=== PATIENT | male | born 1935 | race Caucasian/White ===

== ENCOUNTER 2018-08-31 21:25 | Emergency (ER) | payer MEDICARE, OTHER ==
[2018-08-31 21:35] VITALS: BP 199/93
[2018-08-31] MEDS ORDERED: Ondansetron 4 MG/2 ML SDV IVPUSH ONE ×2 (21:49→22:51)
[2018-08-31] MEDS ORDERED: HYDROmorphone 1 MG/ML Syringe IVPUSH ONE (21:49)
--- NOTE | 2018-08-31 21:56 | EDM.PDOC ---
ED HPI GENERAL MEDICAL PROBLEM - General Chief Complaint: Abdominal Pain Stated Complaint: RIGHT SIDE PAIN VOMMITTING AND FEVER Time Seen by Provider: 08/31/18 21:32 Source of Information: Reports: Patient History Limitations: Reports: No Limitations - History of Present Illness INITIAL COMMENTS - FREE TEXT/NARRATIVE: This is an 82-year-old male. He has a history of colon cancer about 4 years ago when he had surgery and about a foot of colon was removed on the right side. He apparently just recently had a blood test that indicated that he was colon cancer free. However today he started having sharp pain in his right flank into his right lower abdomen now is just in the right flank area that feels suspiciously like he is colon cancer. He's had some nausea and vomiting. He comes to the ER because of the sharp pains for fear his colon cancer has come back. He still has his appendix he believes. He has no history of kidney stones. He has been able to drink fluids. He thinks he might of had a low-grade fever at home though he does not have a fever here in the ER. He denies any distention of his abdomen he denies any other acute symptoms. Right Abdomen Pain Score (Numeric/FACES): 8 - Related Data Allergies Allergy/AdvReac Type Severity Reaction Status Date / Time No Known Allergies Allergy Verified 08/31/18 21:31 Home Meds: Home Meds Carvedilol 3.125 tab PO BID 12/22/14 [History] Losartan/Hydrochlorothiazide [Losartan-HCTZ 50-12.5 MG] 1 tab PO DAILY 12/22/14 [History] metFORMIN [Glucophage] 1,000 mg PO BID 12/22/14 [History] Hydrocodone/Acetaminophen [Hydrocodon-Acetaminophen 5-325] 1 each PO Q4H PRN # 15 tablet 09/01/18 [Rx] Ondansetron [Zofran] 4 mg PO Q6H PRN #12 tab 09/01/18 [Rx] Past Medical History HEENT History: Reports: Cataract, Impaired Vision Cardiovascular History: Reports: High Cholesterol, Hypertension, MD, Stents Other Gastrointestinal History: GI ulcer surgery with mesh Endocrine/Metabolic History: Reports: Diabetes, Type II Oncologic (Cancer) History: Reports: Colon Other Oncologic History: newly diagnosed with colon cancer 12/2014 Dermatologic History: Reports: Melanoma - Past Surgical History HEENT Surgical History: Reports: Cataract Surgery GI Surgical History: Reports: Colonoscopy Other GI Surgeries/Procedures: surgery on ulcer in stomach. removal part of stomach, right hemicolectomy Musculoskeletal Surgical History: Reports: Shoulder Surgery Social & Family History - Tobacco Use Smoking Status *Q: Former Smoker Used Tobacco, but Quit: Yes Month/Year Tobacco Last Used: 1984 - Recreational Drug Use Recreational Drug Use: Yes ED ROS GENERAL - Review of Systems Review Of Systems: See Below Constitutional: Denies: Fever, Chills HEENT: Reports: No Symptoms Respiratory: Reports: No Symptoms Cardiovascular: Reports: No Symptoms Endocrine: Reports: No Symptoms GI/Abdominal: Reports: Abdominal Pain, Nausea, Vomiting. Denies: Black Stool, Bloody Stool, Constipation, Diarrhea, Distension : Reports: No Symptoms Musculoskeletal: Reports: No Symptoms Skin: Reports: No Symptoms Neurological: Reports: No Symptoms Psychiatric: Reports: No Symptoms Hematologic/Lymphatic: Reports: No Symptoms ED EXAM, GI/ABD - Physical Exam Exam: See Below Exam Limited By: No Limitations General Appearance: Alert, WD/WN, No Apparent Distress Eyes: Bilateral: Normal Appearance Ears: Normal External Exam Nose: Normal Inspection Throat/Mouth: Normal Inspection, Normal Lips, Normal Voice, No Airway Compromise Head: Normocephalic Neck: Supple Respiratory/Chest: No Respiratory Distress, Lungs Clear, Normal Breath Sounds Cardiovascular: Regular Rate, Rhythm, No Murmur GI/Abdominal Exam: Soft, No Mass, Guarding, Rigid, Rebound, Tender, Other (He is tender in the right flank area on palpation but there is no guarding, the rest of his abdomen does not appear to have any tenderness.) Back Exam: Normal Inspection, Full Range of Motion Extremities: Normal Inspection, Normal Range of Motion Neurological: Alert, Oriented Psychiatric: Normal Affect, Normal Mood Skin Exam: Warm, Dry Course - Vital Signs Last Recorded V/S: Last Vital Signs Temp 96.6 F 08/31/18 21:32 Pulse 56 L 08/31/18 21:32 Resp 16 08/31/18 21:32 BP 199/93 H 08/31/18 21:32 Pulse Ox 97 08/31/18 21:32 - Orders/Labs/Meds Orders: Active Orders 24 hr Category Date Time Status Abdomen Pelvis w Cont [CT] Stat Exams 08/31/18 21:51 Taken Labs: Laboratory Tests 08/31/18 08/31/18 08/31/18 Range/Units 21:50 21:50 22:05 WBC 11.65 H (4.23-9.07) K/mm3 RBC 4.03 L (4.63-6.08) M/mm3 Hgb 12.1 L D (13.7-17.5) gm/L Hct 36.1 L (40.1-51.0) % MCV 89.6 (79.0-92.2) fl MCH 30.0 (25.7-32.2) pg MCHC 33.5 (32.2-35.5) g/dl RDW Std Deviation 41.9 (35.1-43.9) fL Plt Count 167 (163-337) K/mm3 MPV 10.4 (9.4-12.3) fl Neut % (Auto) 79.7 H (34.0-67.9) % Lymph % (Auto) 8.8 L (21.8-53.1) % [place] % (Auto) 10.2 (5.3-12.2) % Eos % (Auto) 0.9 (0.8-7.0) Baso % (Auto) 0.3 (0.1-1.2) % Neut # (Auto) 9.28 H (1.78-5.38) K/mm3 Lymph # (Auto) 1.03 L (1.32-3.57) K/mm3 [place] # (Auto) 1.19 H (0.30-0.82) K/mm3 Eos # (Auto) 0.10 (0.04-0.54) K/mm3 Baso # (Auto) 0.04 (0.01-0.08) K/mm3 Manual Slide Review Abnormal smear Sodium 138 (136-145) mEq/L Potassium 4.4 (3.5-5.1) mEq/L Chloride 105 (98-107) mEq/L Carbon Dioxide 25 (21-32) mEq/L Anion Gap 12.4 (5-15) BUN 33 H (7-18) mg/dL Creatinine 2.3 H (0.7-1.3) mg/dL Est Cr Clr Drug Dosing 21.17 mL/min Estimated GFR (MDRD) 27 (>60) mL/min BUN/Creatinine Ratio 14.3 (14-18) Glucose 225 H (83-115) mg/dL Lactic Acid 1.3 (0.4-2.0) mmol/L Calcium 9.3 (8.5-10.1) mg/dL Total Bilirubin 0.4 (0.2-1.0) mg/dL AST 21 (15-37) U/L ALT 24 (16-63) U/L Alkaline Phosphatase 66 (46-116) U/L Total Protein 6.9 (6.4-8.2) g/dl Albumin 3.8 (3.4-5.0) g/dl Globulin 3.1 gm/dL Albumin/Globulin Ratio 1.2 (1-2) Lipase 150 (73-393) U/L Meds: Medications Discontinued Medications Generic Name Dose Route Start Last Admin Trade Name Freq PRN Reason Stop Dose Admin Diatrizoate Meglum/Diatrizoate Sod 60 ml 08/31/18 22:59 08/31/18 23:33 Gastrografin 37% PO 08/31/18 23:00 60 ml ONETIME ONE Administration Hydromorphone HCl 0.5 mg 08/31/18 21:49 08/31/18 21:55 Dilaudid IVPUSH 08/31/18 21:50 0.5 mg ONETIME ONE Administration Sodium Chloride 1,000 mls @ 500 mls/hr 08/31/18 22:00 08/31/18 21:56 Normal Saline IV 500 mls/hr ASDIRECTED SELENE Administration Sodium Chloride 1,000 mls @ 500 mls/hr 08/31/18 23:45 Normal Saline IV ASDIRECTED SELENE Iopamidol 100 ml 08/31/18 22:59 08/31/18 23:33 Isovue-370 (76%) IV 08/31/18 23:00 100 ml ONETIME ONE Administration Ketorolac Tromethamine 30 mg 09/01/18 01:22 09/01/18 02:17 Toradol IVPUSH 09/01/18 01:23 30 mg ONETIME ONE Administration Ondansetron HCl 4 mg 08/31/18 21:49 08/31/18 21:56 Zofran IVPUSH 08/31/18 21:50 4 mg ONETIME ONE Administration Ondansetron HCl 4 mg 08/31/18 22:51 08/31/18 22:56 Zofran IVPUSH 08/31/18 22:52 4 mg ONETIME ONE Administration - Radiology Interpretation Free Text/Narrative:: DT scan of the abdomen with contrast reveals a 2 mm stone at the right ureteral vesicle junction. Does not appear to be any other acute findings. - Re-Assessments/Exams Free Text/Narrative Re-Assessment/Exam: 09/01/18 01:22 I spoke to the patient and his regarding the CT scan results and that his pain is related to a kidney stone. We hydrated him with a liter of fluids prior to getting the CT scan and were giving him another liter of fluids because his renal function is slightly decreased. Once he gets the fluids and then we will discharge him home with something for pain and nausea and a urine strainer. 09/01/18 02:16 The patient has been hydrated with 2 L and he wants to go home. Departure - Departure Time of Disposition: 02:16 Disposition: Home, Self-Care 01 Condition: Good Clinical Impression: Right ureteral calculus, Renal colic Nausea and vomiting Qualifiers: Vomiting type: unspecified Vomiting Intractability: non-intractable Qualified Code(s): R11.2 - Nausea with vomiting, unspecified - Discharge Information *PRESCRIPTION DRUG MONITORING PROGRAM REVIEWED*: Not Applicable *COPY OF PRESCRIPTION DRUG MONITORING REPORT IN PATIENT NIMCO: Not Applicable Prescriptions: Hydrocodone/Acetaminophen [Hydrocodon-Acetaminophen 5-325] 1 each PO Q4H PRN # 15 tablet PRN Reason: Pain Ondansetron [Zofran] 4 mg PO Q6H PRN #12 tab PRN Reason: Nausea Instructions: Kidney Stones Referrals: Garland Nieves MD [Primary Care Provider] - Forms: ED Department Discharge Additional Instructions: Continued drink lots of fluids, strain your urine for the kidney stone, take the medicine for pain and nausea as needed, if there is marked worsening of your symptoms really did develop a fever greater than 101 and return to the ER, otherwise follow up with your family doctor this week for recheck - My Orders Last 24 Hours: My Active Orders 08/31/18 21:51 Abdomen Pelvis w Cont [CT] Stat - Assessment/Plan Last 24 Hours: My Active Orders 08/31/18 21:51 Abdomen Pelvis w Cont [CT] Stat
[2018-08-31] MEDS ORDERED: Sodium Chloride 0.9% 1,000 ML IV SCH ×2 (22:00→23:45)
[2018-08-31] MEDS ORDERED: Iopamidol 755 Mg/ML 200 ML Bottle IV ONE (22:59)
[2018-08-31] MEDS ORDERED: Diatrizoate Meglumine/Diatrizoate Sodium 37% 120 ML Bottle PO ONE (22:59)
[2018-09-01] MEDS ORDERED: Ketorolac 30 MG/ML SDV IVPUSH ONE (01:22)
--- NOTE | 2018-09-02 06:36 | CT ---
CT abdomen and pelvis Technique: Multiple axial sections were obtained from above the dome of the diaphragm inferiorly through the pubic symphysis. Intravenous and oral contrast was utilized. Comparison: Prior CT abdomen and pelvis exam of 11/30/18. Small portion of the visualized lung bases show nothing acute. Liver shows no discrete abnormality. Spleen appears within normal limits. Adrenal glands show no nodule. Pancreas is within normal limits. Cysts are noted within the right kidney which are stable from previous exam. Right ureter is prominent in size. There is a small 2 mm calcification located within the right UVJ which is felt compatible with mildly obstructing distal right ureteral stone. No left sided ureteral dilatation or ureteral stone is seen. Aorta shows atherosclerotic change without aneurysm. No retroperitoneal adenopathy is seen. Previous right-sided hemicolectomy is noted. No pelvic mass or adenopathy is seen. No free fluid is seen. Bone window settings show scattered degenerative change within the spine. Impression: 1. Mildly prominent right ureter caused by an obstructing 2 mm stone located within the right UVJ. 2. Previous right-sided colectomy. 3. Other incidental findings. Diagnostic code #3 I agree with preliminary report from [facility], finalized on 09/01/18, 2:13 AM Central Time
== END 2018-09-01 02:27 | disposition home or self-care (01) ==
LOC: JD.ED 21:25
DX: N20.1 Calculus of ureter (principal); E78.00 Pure hypercholesterolemia, unspecified; I10 Essential (primary) hypertension; I25.2 Old myocardial infarction; Z95.5 Presence of coronary angioplasty implant and graft; E11.9 Type 2 diabetes mellitus without complications; Z87.891 Personal history of nicotine dependence; Z79.899 Other long term (current) drug therapy; Z79.84 Long term (current) use of oral hypoglycemic drugs
CPT/HCPCS: 36415; 74177; 80053; 83605; 83690; 85025; 96361; 96374; 96375; 96376; 99284; J1170; J1885; J2405; J7040; Q9963; Q9967

== ENCOUNTER 2021-01-23 13:46 | Emergency (ER) | payer MEDICARE, OTHER ==
[2021-01-23] MEDS ORDERED: Sodium Chloride 0.9% 10 ML Syringe FLUSH PRN (14:19)
[2021-01-23] MEDS ORDERED: Sodium Chloride 0.9% 1,000 ML IV ONE (14:23)
--- NOTE | 2021-01-23 14:29 | EDM.PDOC ---
ED HPI GENERAL MEDICAL PROBLEM - General Chief Complaint: Neuro Symptoms/Deficits Stated Complaint: POSS STROKE Time Seen by Provider: 01/23/21 14:11 Source of Information: Reports: Patient, Family History Limitations: Reports: No Limitations - History of Present Illness INITIAL COMMENTS - FREE TEXT/NARRATIVE: The patient presents with double vision and trouble walking. He says this started yesterday about 9:30am. That would be his last time known well. He started having double vision and had trouble walking. He also has some mild slurred speech. His said it got worse this afternoon so she brought him in. He denies any headache, fever, chills, cough, chest pain, shortness of breath, nausea or vomiting. He thought a few days ago he may have had a bladder infection. He had some lower abdominal pain. He has no nausea, vomiting or diarrhea. Onset: Sudden Duration: Day(s): (last time known well was yesterday at 9:30am) Improves with: Reports: None Worsens with: Reports: None Associated Symptoms: Denies: Chest Pain, Cough, Fever/Chills, Headaches, Nausea/Vomiting, Shortness of Breath - Related Data Allergies Allergy/AdvReac Type Severity Reaction Status Date / Time No Known Allergies Allergy Verified 01/23/21 14:52 Home Meds: Home Meds Losartan/Hydrochlorothiazide [Losartan-HCTZ 50-12.5 MG] 1 tab PO DAILY 12/22/14 [History] carvediloL [Carvedilol] 3.125 tab PO BID 12/22/14 [History] metFORMIN [Glucophage] 1,000 mg PO BID 12/22/14 [History] Past Medical History HEENT History: Reports: Cataract, Impaired Vision Cardiovascular History: Reports: High Cholesterol, Hypertension, [place], Stents Other Gastrointestinal History: GI ulcer surgery with mesh Endocrine/Metabolic History: Reports: Diabetes, Type II Oncologic (Cancer) History: Reports: Colon Other Oncologic History: newly diagnosed with colon cancer 12/2014 Dermatologic History: Reports: Melanoma - Past Surgical History HEENT Surgical History: Reports: Cataract Surgery GI Surgical History: Reports: Colonoscopy Other GI Surgeries/Procedures: surgery on ulcer in stomach. removal part of stomach, right hemicolectomy Musculoskeletal Surgical History: Reports: Shoulder Surgery ED ROS GENERAL - Review of Systems Review Of Systems: See Below Constitutional: Reports: No Symptoms HEENT: Reports: Other (Double vision) Respiratory: Reports: No Symptoms Cardiovascular: Reports: No Symptoms Endocrine: Reports: No Symptoms GI/Abdominal: Reports: Abdominal Pain (mild to the lower abdomen) : Reports: No Symptoms Musculoskeletal: Reports: No Symptoms ED EXAM, NEURO - Physical Exam Exam: See Below Exam Limited By: No Limitations General Appearance: Alert, No Apparent Distress Ears: Normal External Exam Nose: Normal Inspection Head Exam: Atraumatic, Normocephalic Neck: Normal Inspection Respiratory/Chest: No Respiratory Distress, Lungs Clear, Normal Breath Sounds Cardiovascular: Regular Rate, Rhythm, No Edema, No Murmur GI/Abdominal: Soft, No Organomegaly, No Mass, Tender (Mild lower abdominal tenderness) Neurological: Alert, Other (He has double vision. When he covers his either eye he can see one of me but with both he is seeing 2. He cannot look to the right with his right eye. He has mild left arm and leg weakness.) Back Exam: Normal Inspection Extremities: Normal Inspection #1 Interpretation EKG Date: 01/23/21 Time: 14:44 Rhythm: NSR Rate (Beats/Min): 63 [place]: Normal P-Wave: Present QRS: Normal ST-T: Normal QT: Normal Course - Vital Signs Last Recorded V/S: Last Vital Signs Temp 99.8 F 01/23/21 13:50 Pulse 60 01/23/21 13:50 Resp 22 H 01/23/21 13:50 BP 90/52 L 01/23/21 13:50 Pulse Ox 94 L 01/23/21 13:50 - Orders/Labs/Meds Orders: Active Orders 24 hr Category Date Time Status Cardiac Monitoring [RC] . DIRECTED Care 01/23/21 14:19 Active Peripheral IV Care [RC] . DIRECTED Care 01/23/21 14:19 Active Chest 1V Frontal [CR] Stat Exams 01/23/21 14:20 Taken Head wo Cont [CT] Stat Exams 01/23/21 14:33 Taken BLOOD CULTURE [MREF] Stat Lab 01/23/21 15:32 Received BLOOD CULTURE [MREF] Stat Lab 01/23/21 15:40 Received Sodium Chloride 0.9% [Saline Flush] Med 01/23/21 14:19 Active 10 ml FLUSH ASDIRECTED PRN Blood Culture x2 Reflex Set [OM.PC] Stat Oth 01/23/21 15:08 Ordered Peripheral IV Insertion Adult [OM.PC] Stat [facility] 01/23/21 14:19 Ordered Medication Orders Sodium Chloride (Sodium Chloride 0.9% 10 Ml Syringe) 10 ml FLUSH ASDIRECTED PRN PRN Reason: Keep Vein Open Last Admin: 01/23/21 14:48 Dose: 10 ml Documented by: WYATT Labs: Laboratory Tests 01/23/21 01/23/21 01/23/21 Range/Units 14:24 14:48 14:48 WBC 18.35 H (4.23-9.07) K/mm3 RBC 3.10 L (4.63-6.08) M/mm3 Hgb 9.0 L D (13.7-17.5) gm/dl Hct 28.5 L (40.1-51.0) % MCV 91.9 (79.0-92.2) fl MCH 29.0 (25.7-32.2) pg MCHC 31.6 L (32.2-35.5) g/dl RDW Std Deviation 43.0 (35.1-43.9) fL Plt Count 233 (163-337) K/mm3 MPV 8.9 L (9.4-12.3) fl Neut % (Auto) 83.8 H (34.0-67.9) % Lymph % (Auto) 4.9 L (21.8-53.1) % Chambers % (Auto) 10.2 (5.3-12.2) % Eos % (Auto) 0.3 L (0.8-7.0) Baso % (Auto) 0.2 (0.1-1.2) % Neut # (Auto) 15.40 H (1.78-5.38) K/mm3 Lymph # (Auto) 0.89 L (1.32-3.57) K/mm3 Chambers # (Auto) 1.87 H (0.30-0.82) K/mm3 Eos # (Auto) 0.05 (0.04-0.54) K/mm3 Baso # (Auto) 0.03 (0.01-0.08) K/mm3 PT 11.5 (9.7-12.0) SECONDS INR 1.04 APTT 25.0 (21.7-31.4) SECONDS Sodium (136-145) mEq/L Potassium (3.5-5.1) mEq/L Chloride (98-107) mEq/L Carbon Dioxide (21-32) mEq/L Anion Gap (5-15) BUN (7-18) mg/dL Creatinine (0.7-1.3) mg/dL Est Cr Clr Drug Dosing mL/min Estimated GFR (MDRD) (>60) mL/min BUN/Creatinine Ratio (14-18) Glucose (70-99) mg/dL POC Glucose 136 H (70-99) mg/dL Lactic Acid (0.4-2.0) mmol/L Calcium (8.5-10.1) mg/dL Total Bilirubin (0.2-1.0) mg/dL AST (15-37) U/L ALT (16-63) U/L Alkaline Phosphatase (46-116) U/L Troponin I (0.00-0.056) ng/mL Total Protein (6.4-8.2) g/dl Albumin (3.4-5.0) g/dl Globulin gm/dL Albumin/Globulin Ratio (1-2) Urine Color (Yellow) Urine Appearance (Clear) Urine pH (5.0-8.0) Ur Specific Calvin (1.005-1.030) Urine Protein (Negative) Urine Glucose (UA) (Negative) Urine Ketones (Negative) Urine Occult Blood (Negative) Urine Nitrite (Negative) Urine Bilirubin (Negative) Urine Urobilinogen (0.2-1.0) Ur Leukocyte Esterase (Negative) Urine RBC (0-5) /hpf Urine WBC (0-5) /hpf Ur Squamous Epith Cells (0-5) /hpf Urine Bacteria (FEW) /hpf Urine Mucus (FEW) /hpf SARS-CoV-2 RNA (SYED) (NEGATIVE) 01/23/21 01/23/21 01/23/21 Range/Units 14:48 14:57 15:32 WBC (4.23-9.07) K/mm3 RBC (4.63-6.08) M/mm3 Hgb (13.7-17.5) gm/dl Hct (40.1-51.0) % MCV (79.0-92.2) fl MCH (25.7-32.2) pg MCHC (32.2-35.5) g/dl RDW Std Deviation (35.1-43.9) fL Plt Count (163-337) K/mm3 MPV (9.4-12.3) fl Neut % (Auto) (34.0-67.9) % Lymph % (Auto) (21.8-53.1) % Chambers % (Auto) (5.3-12.2) % Eos % (Auto) (0.8-7.0) Baso % (Auto) (0.1-1.2) % Neut # (Auto) (1.78-5.38) K/mm3 Lymph # (Auto) (1.32-3.57) K/mm3 Chambers # (Auto) (0.30-0.82) K/mm3 Eos # (Auto) (0.04-0.54) K/mm3 Baso # (Auto) (0.01-0.08) K/mm3 PT (9.7-12.0) SECONDS INR APTT (21.7-31.4) SECONDS Sodium 139 (136-145) mEq/L Potassium 3.9 (3.5-5.1) mEq/L Chloride 106 (98-107) mEq/L Carbon Dioxide 24 (21-32) mEq/L Anion Gap 12.9 (5-15) BUN 38 H (7-18) mg/dL Creatinine 1.8 H (0.7-1.3) mg/dL Est Cr Clr Drug Dosing 26.58 mL/min Estimated GFR (MDRD) 36 (>60) mL/min BUN/Creatinine Ratio 21.1 H (14-18) Glucose 133 H (70-99) mg/dL POC Glucose (70-99) mg/dL Lactic Acid (0.4-2.0) mmol/L Calcium 7.7 L D (8.5-10.1) mg/dL Total Bilirubin 0.4 (0.2-1.0) mg/dL AST 36 (15-37) U/L ALT 47 (16-63) U/L Alkaline Phosphatase 64 (46-116) U/L Troponin I 0.029 (0.00-0.056) ng/mL Total Protein 5.8 L (6.4-8.2) g/dl Albumin 2.2 L (3.4-5.0) g/dl Globulin 3.6 gm/dL Albumin/Globulin Ratio 0.6 L (1-2) Urine Color Yellow (Yellow) Urine Appearance Clear (Clear) Urine pH 5.5 (5.0-8.0) Ur Specific Calvin 1.020 (1.005-1.030) Urine Protein 2+ H (Negative) Urine Glucose (UA) Negative (Negative) Urine Ketones Negative (Negative) Urine Occult Blood 3+ H (Negative) Urine Nitrite Negative (Negative) Urine Bilirubin Negative (Negative) Urine Urobilinogen 0.2 (0.2-1.0) Ur Leukocyte Esterase 3+ H (Negative) Urine RBC >100 H (0-5) /hpf Urine WBC Too numerous to cnt H (0-5) /hpf Ur Squamous Epith Cells Not seen (0-5) /hpf Urine Bacteria Moderate H (FEW) /hpf Urine Mucus Not seen (FEW) /hpf SARS-CoV-2 RNA (SYED) Negative (NEGATIVE) 01/23/21 Range/Units 15:40 WBC (4.23-9.07) K/mm3 RBC (4.63-6.08) M/mm3 Hgb (13.7-17.5) gm/dl Hct (40.1-51.0) % MCV (79.0-92.2) fl MCH (25.7-32.2) pg MCHC (32.2-35.5) g/dl RDW Std Deviation (35.1-43.9) fL Plt Count (163-337) K/mm3 MPV (9.4-12.3) fl Neut % (Auto) (34.0-67.9) % Lymph % (Auto) (21.8-53.1) % Chambers % (Auto) (5.3-12.2) % Eos % (Auto) (0.8-7.0) Baso % (Auto) (0.1-1.2) % Neut # (Auto) (1.78-5.38) K/mm3 Lymph # (Auto) (1.32-3.57) K/mm3 Chambers # (Auto) (0.30-0.82) K/mm3 Eos # (Auto) (0.04-0.54) K/mm3 Baso # (Auto) (0.01-0.08) K/mm3 PT (9.7-12.0) SECONDS INR APTT (21.7-31.4) SECONDS Sodium (136-145) mEq/L Potassium (3.5-5.1) mEq/L Chloride (98-107) mEq/L Carbon Dioxide (21-32) mEq/L Anion Gap (5-15) BUN (7-18) mg/dL Creatinine (0.7-1.3) mg/dL Est Cr Clr Drug Dosing mL/min Estimated GFR (MDRD) (>60) mL/min BUN/Creatinine Ratio (14-18) Glucose (70-99) mg/dL POC Glucose (70-99) mg/dL Lactic Acid 1.7 (0.4-2.0) mmol/L Calcium (8.5-10.1) mg/dL Total Bilirubin (0.2-1.0) mg/dL AST (15-37) U/L ALT (16-63) U/L Alkaline Phosphatase (46-116) U/L Troponin I (0.00-0.056) ng/mL Total Protein (6.4-8.2) g/dl Albumin (3.4-5.0) g/dl Globulin gm/dL Albumin/Globulin Ratio (1-2) Urine Color (Yellow) Urine Appearance (Clear) Urine pH (5.0-8.0) Ur Specific Calvin (1.005-1.030) Urine Protein (Negative) Urine Glucose (UA) (Negative) Urine Ketones (Negative) Urine Occult Blood (Negative) Urine Nitrite (Negative) Urine Bilirubin (Negative) Urine Urobilinogen (0.2-1.0) Ur Leukocyte Esterase (Negative) Urine RBC (0-5) /hpf Urine WBC (0-5) /hpf Ur Squamous Epith Cells (0-5) /hpf Urine Bacteria (FEW) /hpf Urine Mucus (FEW) /hpf SARS-CoV-2 RNA (SYED) (NEGATIVE) Meds: Medications Generic Name Dose Route Start Last Admin Trade Name Freq PRN Reason Stop Dose Admin Sodium Chloride 10 ml 01/23/21 14:19 01/23/21 14:48 Sodium Chloride 0.9% 10 Ml Syringe FLUSH 10 ml ASDIRECTED PRN Administration Keep Vein Open Discontinued Medications Generic Name Dose Route Start Last Admin Trade Name Freq PRN Reason Stop Dose Admin Atropine Sulfate Confirm 01/23/21 16:23 Atropine 0.1 Mg/Ml 10 Ml Syringe Administered 01/23/21 16:24 Dose 1 mg .ROUTE .STK-MED ONE Sodium Chloride 1,000 mls @ 1,000 mls/hr 01/23/21 14:23 01/23/21 14:25 Normal Saline IV 01/23/21 15:22 1,000 mls/hr ONETIME ONE Administration Ceftriaxone Sodium 2 gm/ 100 mls @ 200 mls/hr 01/23/21 15:51 01/23/21 16:13 Sodium Chloride IV 01/23/21 16:20 200 mls/hr ONETIME ONE Administration - Re-Assessments/Exams Free Text/Narrative Re-Assessment/Exam: 01/23/21 14:32 A stroke alert was called. His last known well was yesterday at 9:30 am. I have ordered a CT of his head, EKG, and labs. His blood pressure was low so I have ordered an IV NS 1L bolus. 01/23/21 14:[address] of his head shows nothing acute. His EKG shows a NSR with no acute changes. 01/23/21 16:05 His WBC was elevated at 18.35. His Hgb was low at 9. His PT and PTT look good. His creatinine is elevated at 1.8. His glucose is 133. His UA shows a UTI. He is COVID negative. 01/23/21 16:09 I feel he is also septic with the UTI. I ordered blood cultures and lactic acid and rocephin 2 grams IV. The patient had 3 episodes of 6 second pauses where he was in asystole. His EKG did not show any acute changes. He has no weakness in his arms or legs. He still has the double vision. His right eye cannot look to the right. I am still worried he may have had a stroke also. 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 I called [facility] in [place] and talked with the neurologist professor of astronomy and he recommended a CT angio of the brain. His creatinine was to high. They could not accept right away. I talked to the hospitalist Dr Diaz and he accepted the patient. Departure - Departure Time of Disposition: 18:35 Disposition: DC/Tfer to Acute Hospital 02 Condition: Serious Clinical Impression: Double vision, Asystole Sepsis Qualifiers: Sepsis type: sepsis due to unspecified organism Sepsis acute organ dysfunction status: unspecified Qualified Code(s): A41.9 - Sepsis, unspecified organism UTI (urinary tract infection) Qualifiers: Urinary tract infection type: site unspecified Hematuria presence: without hematuria Qualified Code(s): N39.0 - Urinary tract infection, site not specified CVA (cerebral vascular accident) Qualifiers: CVA mechanism: unspecified Qualified Code(s): I63.9 - Cerebral infarction, unspecified - Discharge Information Referrals: PCP,Not In Area [Primary Care Provider] - Forms: ED Department Discharge Sepsis Event Note (ED) - Focused Exam Vital Signs: Vital Signs Temp Pulse Resp BP Pulse Ox 01/23/21 13:50 99.8 F 60 22 H 90/52 L 94 L - My Orders Last 24 Hours: My Active Orders 01/23/21 14:19 Cardiac Monitoring [RC] . DIRECTED Peripheral IV Care [RC] . DIRECTED Sodium Chloride 0.9% [Saline Flush] 10 ml FLUSH ASDIRECTED PRN Peripheral IV Insertion Adult [OM.PC] Stat 01/23/21 14:20 Chest 1V Frontal [CR] Stat 01/23/21 14:33 Head wo Cont [CT] Stat 01/23/21 15:08 Blood Culture x2 Reflex Set [OM.PC] Stat 01/23/21 15:32 BLOOD CULTURE [MREF] Stat 01/23/21 15:40 BLOOD CULTURE [MREF] Stat - Assessment/Plan Last 24 Hours: My Active Orders 01/23/21 14:19 Cardiac Monitoring [RC] . DIRECTED Peripheral IV Care [RC] . DIRECTED Sodium Chloride 0.9% [Saline Flush] 10 ml FLUSH ASDIRECTED PRN Peripheral IV Insertion Adult [OM.PC] Stat 01/23/21 14:20 Chest 1V Frontal [CR] Stat 01/23/21 14:33 Head wo Cont [CT] Stat 01/23/21 15:08 Blood Culture x2 Reflex Set [OM.PC] Stat 01/23/21 15:32 BLOOD CULTURE [MREF] Stat 01/23/21 15:40 BLOOD CULTURE [MREF] Stat
[2021-01-23 14:51] VITALS: BP 90/52; PULSE 60
[2021-01-23] MEDS ORDERED: cefTRIAXone 2 GM in Sodium Chloride 0.9% 100 ML IV ONE (15:51)
[2021-01-23] MEDS ORDERED: Atropine 0.1 MG/ML 10 ML Syringe ONE (16:23)
--- NOTE | 2021-01-24 07:45 | CR ---
Chest: Portable view of the chest was obtained. Comparison: Prior chest x-ray of 12/31/14. Heart size and mediastinum are within normal limits. Lungs are questionably hyperinflated. Lungs otherwise are clear. Prior surgery is noted within the left shoulder. Findings suspicious for chronic rotator cuff tear is noted within the right shoulder. Impression: 1. Shoulder findings as noted above. 2. Questionable emphysematous change. 3. Nothing acute is appreciated on portable chest x-ray. Diagnostic code #2
--- NOTE | 2021-01-24 07:49 | CT ---
Head CT Technique: Multiple axial sections through the brain were obtained. Intravenous contrast was not utilized. Reconstructed coronal and sagittal images were obtained. Comparison: No prior intracranial imaging is available. Findings: Ventricles along with basal cisterns and sulci over the convexities are mildly prominent. Minimal areas of diminished density are noted within the periventricular white matter which is most likely due to small vessel ischemic demyelination change. No other abnormal parenchymal densities are seen. No evidence of intracranial hemorrhage is seen. No midline shift or mass-effect is appreciated. Atherosclerotic calcification is seen within the vertebral vessels and within the carotid siphon. Visualized mastoid sinuses and paranasal sinuses show nothing acute. No acute calvarial abnormality is appreciated. Impression: 1. Mild senescent change as described above. 2. Nothing acute is appreciated on noncontrast head CT study. Diagnostic code #2 I agree with preliminary report from vRjulio cesar, finalized on 01/23/21, 3:42 PM CDT, code 1
--- OUTSIDE RECORDS SUMMARY | 2021-02-03 09:44 | XMSREPORT ---
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 (Routine) Status Reason Specialty Diagnoses / Procedures Referred By Indra diggs Referred To Contact [address] [phone] Phone: Reason for Visit Auth/Cert Status Reason Specialty Diagnoses / Procedures Referred By Indra diggs Referred To Contact Encounter Details Date Type Department Care Team Description 01/23/2021 - Hospital Encounter [facility] Provider, [facility] Procedure TIA (transient 01/31/2021 [facility] Ana Cristina Friedman W, DO [address] [place] [address] [phone] ischemic attack) Asya Gonzalez MD [address] [place] [address] [phone] [id number] Ar Oneill MD [address] [place] [address] [phone] [place] [address] Sohan Diaz MD [address] [place] [address] [phone] Allergies No Known Active Allergiesdocumented as of this encounter (statuses as of 01/31/2021) Medications Medication Sig Dispensed Refills Start Date End Date Status losartan 100 mg Take 100 mg 0 Ac tive tablet by mouth 1 time per day metFORMIN Take 1,000 mg 0 Active (GLUCOPHAGE) 1000 by mouth 2 MG tablet times a day turmeric 500 mg Take 500 mg 0 Ac tive capsule by mouth 1 time per day cyanocobalamin Take 1,000 0 Acti ve (VITAMIN B-12) 1000 mcg by mouth mcg tablet 1 time per day Zinc (ZINC) 50 MG Take 50 mg by 0 Active CAPS mouth 1 time per day nitroglycerin Dissolve 1 30 tablet 0 01/31/2021 Acti ve (NITROSTAT) 0.4 mg tablet (0.4 2 sublingual mg) under the tabletIndications: tongue Every Stented coronary 5 minutes as artery needed for chest pain May repeat every 5 minutes for a total of 3 doses. atorvaSTATin Take 1 tablet 90 tablet 4 01/31/2021 Ac tive (LIPITOR) 40 mg (40 mg) by 2 tabletIndications: mouth every Stented coronary night at artery bedtime metoprolol Take 1 tablet 30 tablet 1 02/01/2021 Acti ve succinate (TOPROL (50 mg) by 2 XL) 50 mg SR tablet mouth 1 time (24 hr)Indications: per day Stented coronary artery amLODIPine Take 1 tablet 30 tablet 1 02/01/2021 Acti ve (NORVASC) 5 mg (5 mg) by 2 tabletIndications: mouth 1 time Hypertension, per day unspecified type aspirin (ECOTRIN Take 1 tablet 30 tablet 0 01/31/2021 03/02/20 2 Active LOW STRENGTH) 81 MG (81 mg) by 1 enteric coated mouth 1 time tabletIndications: per day Stop Stented coronary after the artery dose on 03/02/21. clopidogrel Take 1 tablet 90 tablet 3 02/01/2021 Act kraig (PLAVIX) 75 mg (75 mg) by tabletIndications: mouth 1 time Stented coronary per day artery warfarin (COUMADIN) Take 1 tablet 30 tablet 1 01/31/202102/05 Active 2.5 MG (2.5 mg) by 2 tabletIndications: mouth 1 time LV (left per day ventricular) mural Dosing per thrombus coumadin clinic. carVEDilol (COREG) Take 6.25 mg 0 02/01/20 2 Discontinued 6.25 mg tablet by mouth 2 1 (Sto p Taking at times a day Discharg e) simvastatin (ZOCOR) Take 20 mg by 0 Discontinued 20 mg tablet mouth 1 time 1 (Sto p Taking at per day Discharge) aspirin (ECOTRIN Take 81 mg by 0 Discontinued LOW STRENGTH) 81 MG mouth 1 time 1 (Reorder) enteric coated per day tablet documented as of this encounter (statuses as of 01/31/2021) Active Problems Problem Noted Date TIA (transient ischemic attack) 01/24/2021 Tachycardia 01/24/2021 documented as of this encounter (statuses as of 01/31/2021) Social History Tobacco Use Types Packs/Day Years Used Date Never Smoker Smokeless Tobacco: Never Used Alcohol Use Standard Drinks/Week Comments Never 0 (1 standard drink = 0.6 oz pure alcoho l) Alcohol Habits Answer Date Recorded How often do you have a drink containing alcohol? Never 01/24/2021 How many drinks containing alcohol do you have on a typical Not asked day when you are drinking? How often do you have six or more drinks on one occasion? No t asked Comment: Not asked Sex Assigned at Date Recorded Not on file documented as of this encounter Last Filed Vital Signs Vital Sign Reading Time Taken Comments Blood Pressure 152/71 01/31/2021 7:32 AM CDT Pulse 44 01/31/2021 7:32 AM CDT Temperature 37 C (98.6 F) 01/31/2021 7:32 AM CDT Respiratory Rate 13 01/31/2021 7:32 AM CDT Oxygen Saturation 93% 01/31/2021 7:32 AM CDT Inhaled Oxygen Concentration - - Weight 66.9 kg (147 lb 7.8 oz) 01/30/2021 7:00 AM CDT Height 170.2 cm (5' 7") 01/23/2021 10:00 PM CDT Body Mass Index 23.1 01/23/2021 10:00 PM CDT documented in this encounter Functional Status Functional Status Response Date of Assessment Do you have difficulty with walking, balance, climbing Yes 01/24/2021 stairs, or had a fall in the last 3 months? documented as of this encounter Discharge Summaries Not on filedocumented in this encounter Discharge Instructions [facility] Images from the original note were not included. Warfarin Discharge Instructions: Warfarin dose given 01/31/21 in the hospital. Check INR tomorrow on 02/01/21 LINQ II Monitor also known as an Insertable Concrete Sculptor (ICM) An insertable night monitor is a small implantable device that always monitors heart rhythms and records them automatically. The device is implanted just beneath the skin in the upper left chest area during a simple procedure. The LINQ II Insertable Concrete Sculptor may help your doctor diagnose abnormal heart rhythms. TheLINQ II Insertable radiation monitor may remain implanted with a battery longevity of up to 4.5 years. Follow-up with your LINQ II Insertable Concrete Sculptor You will be seen in the Pacemaker[facility]Arrhythmia Clinic in approximately 14 days after your procedure. After your initial clinic check, future checks will be done every 5 weeks with home monitoring.The home monitoring will automatically send if the monitor detects a heart rhythm disturbance. Stroke / TIA Discharge Instructions Medications Medications are an important part of reducing your risk of stroke and transient ischemic attack (TIA) always take medications as directed; do not skip doses. If you are unable to take your medications, please contact your provider. See schedule of discharge medications. If you are on a blood thinner (anticoagulant), call your provider if any signs of bleeding (bruising, blood in urine, stool, vomit, or sputum). Please contact your provider before beginning or resuming herbal and/or vitamin supplements. Review of Risk Factors and Interventions Smoking? No Advised to quit? NA Do not smoke or use tobacco. Ask family members to stop smoking. Talk to your provider about using the nicotine patch or other medication. Join a smoking cessation group. High Blood Pressure? Yes Your BP: 152/71 Goal BP is less than 140/90 mmHg or as recommended by your provider Monitor your Blood Pressure Lower your blood pressure by losing weight, exercising, and eating less salt. High Cholesterol? Yes Your current LDL (bad cholesterol) No results found for: LDLDIR Lab Results Component Value Date LDL 52 01/24/2021 Your goal LDL (bad cholesterol) level is less than 70. Review your cholesterol levels with your provider. Follow a low fat and low cholesterol diet. Diabetes? Yes HgbA1c value No results found for: HGBA1C Your goal is to keep your HgbA1c less than 7 mg/dL. Follow your diet and exercise plan as directed. Keeping your blood sugars under control will lower your risk for another stroke / transient ischemic attack (TIA). Exercise? Yes Exercise as directed. Staying active (walking or riding a stationary bike) for 30 minutes 5 times a week could reduce the risk of stroke. Alcohol Use? Yes No more than 1 - 2 alcoholic drinks a day. It is very important that you keep all your appointments. Call 911 immediately if you are experiencing any of these common warning signs of stroke / TIA Sudden numbness or weakness of the face, arm or leg, especially on one side of the body. Sudden confusion, trouble speaking or understanding speech. Sudden trouble seeing in one or both eyes. Sudden trouble walking, dizziness, loss of balance or coordination. Sudden severe headache with no known cause. For more information about stroke contact [place] [facility], , www.strokeassociation.org National Stroke Association, , www.stroke.org National [place] of Neu[employer] Disorders and Stroke, , www. ninds.nih.gov If you are having symptoms please notify the clinic during business hours. If you are having a medical emergency please seek medical attention or call 911. There are charges associated with the home monitoring checks, please check with your insurance if you have any questions regarding coverage. Incisional Care Monitor incision daily. Call the Pacemaker/Arrhythmia Clinic if you have a temperature >100 degrees, pain, redness, swelling or drainage at the incision site Band-aid to be removed the next day after the procedure If present, steri-strips need to be removed after 5 to 7 days, it's okay if they fall off sooner. You may shower on 01/30/21. After this date you may shower daily and cleanse the area gently with soap, do not scrub the incision. Allow the shower to rinse the area. Pat dry the incision. Do not soak incision in a bath tub, hot tub, or swimming pool until the incision is well healed Do not use any ointments, creams or powder on the incision (such as antibiotic cream, Vitamin E, etc) Living with your LINQ II Insertable Concrete Sculptor Following your procedure, daily activities will not change unless specified by your doctor. Tell any new doctor, dentist or other health care provider that you have an Insertable Concrete Sculptor. Carry your identification card at all times. Present your ID card at an airport or security area. Family members are encouraged to take CPR class and to have an emergency plan at home. Call the Pacemaker[facility]Arrhythmia Clinic if you are planning to move, to assist with the proper follow-up. Home Monitoring 2 ways to monitor (you will use one or the other) 1. [employer] Relay home communicator for bedside use. - Ensure the home communicator is plugged in and powered on within 10 feet of where you sleep. - Ensure the home communicator is in a location with adequate cellular signal - Do not bring the monitor to your clinic appointment. 2. [employer] Mobile rupinder to be used on your smartphone or tablet. If you were assigned the [employer] Mobile rupinder to be used on your smartphone or tablet,you will need to download the rupinder to the device you would like to use for monitoring. To download the [employer] Mobile Rupinder on your phone or tablet, go to www.ApptheGame and tap the Download on the Rupinder Store icon or the Get It [employer] icon. Or, you may scan the QR code attached. If you have questions or concerns, feel free to contact the Pacemaker/Arrhythmia Clinic or the foreman/project manager of your monitor. [facility] ext [phone] or [phone] documented in this encounter Medications at Time of Discharge Medication Sig Dispensed Refills Start Date End Date nitroglycerin (NITROSTAT) Dissolve 1 tablet 30 tablet 0 02/05/2022 0.4 mg sublingual (0.4 mg) under the tabletIndications: Stented tongue Every 5 coronary artery minutes as needed for chest pain May repeat every 5 minutes for a total of 3 doses. atorvaSTATin (LIPITOR) 40 Take 1 tablet (40 90 tablet 4 02/05/2022 mg tabletIndications: mg) by mouth every Stented coronary artery night at bedtime metoprolol succinate Take 1 tablet (50 30 tablet 1 02/02/20 21 02/06/2022 (TOPROL XL) 50 mg SR mg) by mouth 1 time tablet (24 hr)Indications: per day Stented coronary artery amLODIPine (NORVASC) 5 mg Take 1 tablet (5 30 tablet 1 01/1302/06/2022 tabletIndications: mg) by mouth 1 time Hypertension, unspecified per day type aspirin (ECOTRIN LOW Take 1 tablet (81 30 tablet 0 02/01/20 21 03/02/2021 STRENGTH) 81 MG enteric mg) by mouth 1 time coated tabletIndications: per day Stop after Stented coronary artery the dose on 03/02/21. clopidogrel (PLAVIX) 75 mg Take 1 tablet (75 90 tablet 3 tabletIndications: Stented mg) by mouth 1 time coronary artery per day turmeric 500 mg capsule Take 500 mg by 0 mouth 1 time per day cyanocobalamin (VITAMIN Take 1,000 mcg by 0 B-12) 1000 mcg tablet mouth 1 time per day Zinc (ZINC) 50 MG CAPS Take 50 mg by mouth 0 1 time per day losartan 100 mg tablet Take 100 mg by 0 mouth 1 time per day metFORMIN (GLUCOPHAGE) Take 1,000 mg by 0 1000 MG tablet mouth 2 times a day warfarin (COUMADIN) 2.5 MG Take 1 tablet (2.5 30 tablet 1 0 01/31/2021 02/05/2022 tabletIndications: LV mg) by mouth 1 time (left ventricular) mural per day Dosing per thrombus coumadin clinic. documented as of this encounter Progress Notes Asya Fernandez MD - 01/30/2021 11:21 AM CDT Images from the original note were not included. DAILY PROGRESS NOTE Eddie Mario is a 85yr old male admitted on 01/23/2021 9:49 PM. Impression / Plan Active Problems: TIA (transient ischemic attack) Tachycardia Resolved Problems: * No resolved hospital problems. 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 Continue atorvastatin. Repeat head CT neg for hemorrhagic changes. Started warfarin, continue bridging heparin until therapeutic, INR 1.9 today. Consider repeat echo in 2-4 months to assess for resolution of thrombus and to determine duration of need for anticoagulation (if loop recorder remains neg for afib.) #Nonsustained SVT #Nonsustained VT #Intermittent AV block with multiple pauses of 4 to 6 seconds Appreciate EP review. Arrhythmias thought secondary to acute stroke and we will continue to monitor closely on telemetry, improved. Loop recorderplaced 01/27. # CAD s/p LAD PCI S/p stents01/25. Small post procedural radial hematoma. On DAPT with plavix and aspirin for at least one month.On statin, beta prudence. #Type 2 diabetes on Metformin Hold Metformin per hospital policy. Sliding scale insulin if needed. #Hypertension Restartedhome losartan, continue metoprolol. Added amlodipine due to suboptimal BP control. Goal blood pressure less than 130/90. #UTI versus asymptomatic bacturia discontinueIV ceftriaxone.WBC count trending down. Blood cultures from [place] negative. # Anemia Stable and asymptomatic #Disposition DNR. Plan to d/c home with family when stable. OT eval with [facility] , no driving, needs 24/7 supervision.Reviewed these recs with patient and family. Therapeutic anticoagulation. Will need stroke clinic follow-up in 3 months, plans to follow in [place] or [place] with cardiology. Interval History HPI 85 y/o M admitted with blurred vision, loss of balance, and L sided weakness. Found to have multiplesmall acute infarcts in R midbrain. Echo showed apical thrombus, went to angiogram, required PCI x 2. Started on heparin anticoagulation. 72 hour follow-up head CT showed no hemorrhagic transformation, started warfarin. No events overnight. Slept well. Eating and drinking without difficulty. Ambulatory, feeling stronger every day. Review of Systems Review of Systems Constitutional: Negative for appetite change, diaphoresis, fatigue and fever. Respiratory: Negative for cough, shortness of breath and wheezing. Cardiovascular: Negative for chest pain, palpitations and leg swelling. Gastrointestinal: Negative for abdominal pain, constipation, diarrhea, nausea and vomiting. Genitourinary: Negative for dysuria. Neurological: Negative for dizziness and light-headedness. Psychiatric/Behavioral: Negative for dysphoric mood and sleep disturbance. The patient is not nervous/anxious. Physical Exam Vital Signs: Temp: 98.3 F (36.8 C) | BP: 161/70 | Pulse: 45 | Resp: 16 | Pain Ratin (out of 10) | Weight: 66.5 kg (146 lb 9.7 oz) | O2 Device: Room Air | SpO2: 96 % Maximum Temperatures (last 24 hours) Temperature Maximum Max Temp 98.6 F (37 C) Intake and Output: 01/29 0700 - 01/30 0659 In: 600 [Oral:600] Out: 0 Physical Exam Vitals and nursing note reviewed. Constitutional: General: He is not in acute distress. Appearance: He is well-developed. He is not diaphoretic. HENT: Head: Normocephalic and atraumatic. Right Ear: External ear normal. Left Ear: External ear normal. Mouth/Throat: Pharynx: No oropharyngeal exudate. Eyes: General: No scleral icterus. Neck: Trachea: No tracheal deviation. Cardiovascular: Rate and Rhythm: Normal rate and regular rhythm. Heart sounds: Normal heart sounds. No murmur heard. Pulmonary: Effort: Pulmonary effort is normal. No respiratory distress. Breath sounds: Normal breath sounds. No wheezing or rales. Abdominal: General: Bowel sounds are normal. There is no distension. Palpations: Abdomen is soft. Tenderness: There is no abdominal tenderness. There is no guarding or rebound. Musculoskeletal: Cervical back: Neck supple. Skin: General: Skin is warm and dry. Findings: No erythema or rash. Neurological: Mental Status: He is alert and oriented to person, place, and time. Cranial Nerves: No cranial nerve deficit. Labs Labs (Last day) 01/30/21 0655 - 01/29/21 1254 GENERAL COAGULATION 01/30/21 0655 01/30/21 0655 01/30/21 0058 01/29/21 1859 01/29/21 1254 GENERAL COAGULATION Protime 12.0-14.5 (secs) 20.6 INR 0.9-1.1 1.9 Heparin Xa Unfractionated 0.30-0.70 (U/mL) 0.46 0.50 0.51 0.51 01/30/21 1102 - 01/29/21 1700 GLUCOSE POINT OF CARE 01/30/21 1102 01/30/21 0453 01/29/21 2112 01/29/21 1700 GLUCOSE POINT OF CARE Glucose POC 70-99 (mg/dL) 138 155 136 182 Medical Decision making Medical Decision Making Asya Jung MD - 01/29/2021 1:16 PM CDT Images from the original note were not included. DAILY PROGRESS NOTE Eddie Mario is a 85yr old male admitted on 01/23/2021 9:49 PM. Impression / Plan Active Problems: TIA (transient ischemic attack) Tachycardia Resolved Problems: * No resolved hospital problems. 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 Appreciate cardiology, neurovascular, and electrophysiology. Heparin drip without a bolus initiated after discussion of risks and benefits with the patient, his spouse, and hisgrandson. Continue tomonitor neuro signs closely and stroke scale. Continue atorvastatin. Repeat head CT neg for hemorrhagic changes. Started warfarin, continue bridging heparin until therapeutic. #Nonsustained SVT #Nonsustained VT #Intermittent AV block with multiple pauses of 4 to 6 seconds Appreciate EP review. Arrhythmias thought secondary to acute stroke and we will continue to monitor closely on telemetry, improved. Loop recorderplaced 01/27. # CAD s/p LAD PCI S/p stent01/25. Small post procedural radial hematoma. On DAPT with plavix and aspirin.On statin,beta prudence. #Type 2 diabetes on Metformin Hold Metformin per hospital policy. Sliding scale insulin if needed. #Hypertension Restarted home losartan, continue metoprolol. Adding amlodipine due to suboptimal BP control. #UTI discontinueIV ceftriaxone.WBC count trending down. Blood cultures from [place] negative. # Anemia Stable and asymptomatic #Disposition Discussed CODE STATUS at length. Given the complexity of his situation, age, and multiple comorbidities with initiation of anticoagulation and the risks of that, changed CODE STATUS to DNR. Reassured patient and family that we would still treat all medical conditions up to the point of cardiac arrest/natural .Plan to d/c home with family when stable. OT eval today with [facility] 15/30, no driving, needs 24/7 supervision.Reviewed these recs with patient and family. Interval History HPI No events overnight. Patient notes he is celebrating his 59th wed anniversary today. Went for a walk in the halls, tolerated well. Review of Systems Review of Systems Constitutional: Negative for appetite change, diaphoresis, fatigue and fever. Respiratory: Negative for cough, shortness of breath and wheezing. Cardiovascular: Negative for chest pain, palpitations and leg swelling. Gastrointestinal: Negative for abdominal pain, constipation, diarrhea, nausea and vomiting. Genitourinary: Negative for dysuria. Neurological: Negative for dizziness and light-headedness. Psychiatric/Behavioral: Negative for dysphoric mood and sleep disturbance. The patient is not nervous/anxious. Physical Exam Vital Signs: Temp: 98.2 F (36.8 C) | BP: 148/67 | Pulse: 53 | Resp: 18 | Pain Ratin (out of 10) | Weight: 66.5 kg (146 lb 9.7 oz) | O2 Device: Room Air | SpO2: 94 % Maximum Temperatures (last 24 hours) Temperature Maximum Max Temp 98.4 F (36.9 C) Intake and Output: 01/28 0700 - 01/29 0659 In: 240 [Oral:240] Out: - Physical Exam Vitals and nursing note reviewed. Constitutional: Appearance: Normal appearance. He is normal weight. HENT: Head: Normocephalic and atraumatic. Right Ear: External ear normal. Left Ear: External ear normal. Nose: Nose normal. Mouth/Throat: Mouth: Mucous membranes are dry. Eyes: General: No scleral icterus. Pupils: Pupils are equal, round, and reactive to light. Cardiovascular: Rate and Rhythm: Normal rate and regular rhythm. Pulses: Normal pulses. Pulmonary: Effort: Pulmonary effort is normal. No respiratory distress. Abdominal: General: Abdomen is flat. Musculoskeletal: Right lower leg: No edema. Left lower leg: No edema. Skin: General: Skin is warm and dry. Neurological: General: No focal deficit present. Mental Status: He is alert. Psychiatric: Mood and Affect: Mood normal. Labs Labs (Last day) 01/29/21 1254 - 01/28/212022 GENERAL COAGULATION 01/29/21 1254 01/29/21 0646 01/29/21 0646 01/29/21 0034 01/28/212022 GENERAL COAGULATION Protime 12.0-14.5 (secs) 16.9 INR 0.9-1.1 1.5 Heparin Xa Unfractionated 0.30-0.70 (U/mL) 0.51 0.40 0.48 0.77 01/28/213 - 01/28/21 1742 GENERAL COAGULATION 01/28/21191201/28/21 174 GENERAL COAGULATION Heparin Xa Unfractionated 0.30-0.70 (U/mL) 1.03 0.17 01/29/21 1117 - 01/28/21 1758 GLUCOSE POINT OF CARE 01/29/21 1117 01/29/21 0451 01/28/21 2055 01/28/21 1758 GLUCOSE POINT OF CARE Glucose POC 70-99 (mg/dL) 145 173 163 171 Medical Decision making Medical Decision Making Asya guadarrama MD - 01/28/2021 12:26 PM CDT Images from the original note were not included. DAILY PROGRESS NOTE Eddie Mario is a 85yr old male admitted on 01/23/2021 9:49 PM. Impression / Plan Active Problems: TIA (transient ischemic attack) Tachycardia Resolved Problems: * No resolved hospital problems. 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 Complex situation as high risk for hemorrhage intoarea of acute stroke with anticoagulation, but also high risk of further strokes if thrombus left untreated. Discussed in depth with cardiology, neurovascular, and electrophysiology. Heparin drip without a bolus initiated after discussion of risks and benefits with the patient, his spouse, and hisgrandson. Continue tomonitor neuro signs closely and stroke scale. Continue atorvastatin. Repeat head CT neg for hemorrhagic changes. Started warfarin, continue bridging heparin until therapeutic. #Nonsustained SVT #Nonsustained VT #Intermittent AV block with multiple pauses of 4 to 6 seconds Appreciate EP review. Arrhythmias thought secondary to acute stroke and we will continue to monitor closely on telemetry. Loop recorder placed 01/27.EP increased metoprolol dosing today. # CAD s/p LAD PCI S/p stent 01/25. Small post procedural radial hematoma. On DAPT with plavix and aspirin. On statin, beta prudence. #Type 2 diabetes on Metformin Hold Metformin per hospital policy. Sliding scale insulin if needed. #Hypertension Restarted home losartan, continue metoprolol. #UTI discontinueIV ceftriaxone.WBC count trending down. Blood cultures from [place] negative. # Anemia Stable and asymptomatic #Disposition Discussed CODE STATUS at length. Given the complexity of his situation, age, and multiple comorbidities with initiation of anticoagulation and the risks of that, changed CODE STATUS to DNR. Reassured patient and family that we would still treat all medical conditions up to the point of cardiac arrest/natural .Plan to d/c home with family when stable. OT eval today with [facility] , no driving, needs / supervision. Reviewed these recs with patient and family. Interval History HPI No events overnight. Anxious to go home. Review of Systems Review of Systems Constitutional: Negative for appetite change, diaphoresis, fatigue and fever. Respiratory: Negative for cough, shortness of breath and wheezing. Cardiovascular: Negative for chest pain, palpitations and leg swelling. Gastrointestinal: Negative for abdominal pain, constipation, diarrhea, nausea and vomiting. Genitourinary: Negative for dysuria. Neurological: Negative for dizziness and light-headedness. Psychiatric/Behavioral: Negative for dysphoric mood and sleep disturbance. The patient is not nervous/anxious. Physical Exam Vital Signs: Temp: 99 F (37.2 C) | BP: 156/73 | Pulse: 69 | Resp: 18 | Pain Ratin (out of 10) | Weight: 67.3 kg (148 lb 5.9 oz) | O2 Device: Room Air | SpO2: 94 % Maximum Temperatures (last 24 hours) Temperature Maximum Max Temp 99 F (37.2 C) Intake and Output: 01/27 0700 - 01/28 0659 In: 240 [Oral:240] Out: - Physical Exam Vitals and nursing note reviewed. Constitutional: General: He is not in acute distress. Appearance: He is well-developed. He is not diaphoretic. HENT: Head: Normocephalic and atraumatic. Right Ear: External ear normal. Decreased hearing noted. Left Ear: External ear normal. Decreased hearing noted. Mouth/Throat: Pharynx: No oropharyngeal exudate. Eyes: General: No scleral icterus. Neck: Trachea: No tracheal deviation. Cardiovascular: Rate and Rhythm: Regular rhythm. Bradycardia present. Heart sounds: Normal heart sounds. No murmur heard. Pulmonary: Effort: Pulmonary effort is normal. No respiratory distress. Breath sounds: Normal breath sounds. No wheezing or rales. Abdominal: General: Bowel sounds are normal. There is no distension. Palpations: Abdomen is soft. Tenderness: There is no abdominal tenderness. There is no guarding or rebound. Musculoskeletal: Cervical back: Neck supple. Skin: General: Skin is warm and dry. Findings: Bruising (improving hematoma on R forearm) present. No erythema or rash. Neurological: General: No focal deficit present. Mental Status: He is alert. Psychiatric: Mood and Affect: Mood normal. Labs Labs (Last day) 01/28/21356 - 01/28/21356 CBC 01/28/21356 CBC WBC 4.0-11.0 (K/uL) 10.3 RBC 4.40-5.80 (M/uL) 3.22 Hemoglobin 13.5-17.5 (g/dL) 9.1 Hematocrit 40.0-50.0 (%) 28.7 MCV 80.0-98.0 (fL) 89.1 MCH 25.5-34.0 (pg) 28.3 MCHC 31.5-36.5 (g/dL) 31.7 RDW-CV 11.5-15.5 (%) 13.2 RDW-SD 35.5-50.0 (fl) 43.0 Platelet Count 140-400 (K/uL) 312 MPV 8.5-12.0 (fL) 9.5 01/28/21356 - 01/28/21356 CHEMISTRY 01/28/21356 CHEMISTRY Glucose 70-100 (mg/dL) 183 Sodium 135-145 (meq/L) 141 Potassium 3.5-5.3 (meq/L) 4.1 Chloride 99-110 (meq/L) 108 CO2 20-29 (meq/L) 24 Anion Gap with K 6-20 (meq/L) 13 BUN 6-22 (mg/dL) 17 Creatinine 0.80-1.30 (mg/dL) 1.27 BUN/Creatinine Ratio 10.0-25.0 13.4 Calcium 8.5-10.5 (mg/dL) 8.8 eGFR >=60 (mL/min/1.73m2) 65 eGFR Non- >=60 (mL/min/1.73m2) 54 01/28/21 0357 - 01/28/21 0357 DIFFERENTIAL 01/28/21 035 DIFFERENTIAL Seg Neut Absolute 1.8-8.0 (K/uL) 8.3 Lymphocytes Absolute 0.8-4.1 (K/uL) 1.0 Monocytes Absolute 0.0-1.0 (K/uL) 0.7 Eosinophils Absolute 0.0-0.7 (K/uL) 0.2 Basophil Absolute 0.0-0.2 (K/uL) 0.0 Immature Granulocyte Absolute 0.00-0.06 (K/uL) 0.07 Neutrophils Percent (%) 80.9 Neutrophils Abs. (Segs and Bands) (/uL) 8,300 Lymphocytes Percent (%) 9.2 Monocytes Percent (%) 7.1 Immature Granulocyte Percent (%) 0.7 Eosinophils Percent (%) 1.7 Basophil Percent (%) 0.4 Nucleated RBC (/100 WBC's) 0 01/28/21 1048 - 01/27/21 1417 GENERAL COAGULATION 01/28/21 1048 01/28/21 0649 01/28/21 0357 01/27/21 2050 01/27/21 1417 GENERAL COAGULATION Protime 12.0-14.5 (secs) 15.3 INR 0.9-1.1 1.3 Heparin Xa Unfractionated 0.30-0.70 (U/mL) 0.32 0.36 0.27 0.41 01/28/21 1147 - 01/27/21 1713 GLUCOSE POINT OF CARE 01/28/21 1147 01/28/21 0614 01/27/21 2110 01/27/21 1713 GLUCOSE POINT OF CARE Glucose POC 70-99 (mg/dL) 202 173 162 236 01/28/21 0357 - 01/28/21 0357 OTHER 01/28/21 0357 OTHER Age (Years) 85 Medical Decision making Medical Decision Making Asya guadarrama MD - 01/27/2021 2:43 PM CDT Images from the original note were not included. DAILY PROGRESS NOTE Eddie Mario is a 85yr old male admitted on 01/23/2021 9:49 PM. Impression / Plan Active Problems: TIA (transient ischemic attack) Tachycardia Resolved Problems: * No resolved hospital problems. 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 Complex situation as high risk for hemorrhage intoarea of acute stroke with anticoagulation, but also high risk of further strokes if thrombus left untreated. Discussed in depth with cardiology, neurovascular, and electrophysiology. Heparin drip without a bolus initiated after discussion of risks and benefits with the patient, his spouse, and hisgrandson. Continue to monitor neuro signs closely and stroke scale. Continue atorvastatin. Appreciateneurovascular consultation. Repeat head CT neg for hemorrhagic changes. Started warfarin, continue bridging heparin until therapeutic. #Nonsustained SVT #Nonsustained VT #Intermittent AV block with multiple pauses of 4 to 6 seconds Appreciate EP review. Arrhythmias thought secondary to acute stroke and we will continue to monitor closely on telemetry. Plan for loop recorder today.EP increasing metoprolol dosing today. # CAD s/p LAD PCI S/p stent 01/25. Small post procedural radial hematoma. On DAPT with plavix and aspirin. On statin, beta prudence. #Type 2 diabetes on Metformin Hold Metformin per hospital policy. Sliding scale insulin if needed. #Hypertension Restart home losartan, continue metoprolol. #UTI discontinue IV ceftriaxone.WBC count trending down. Blood cultures from [place] negative. # Anemia Stable and asymptomatic #Disposition Discussed CODE STATUS at length. Given the complexity of his situation, age, and multiple comorbidities with initiation of anticoagulation and the risks of that, changed CODE STATUS to DNR. Reassured patient and family that we would still treat all medical conditions up to the point of cardiac arrest/natural . Plan to d/c home with family when stable. OT eval today with [facility] 15/30, no driving, needs 24/7 supervision. Interval History HPI No complaints today. Negative repeat head CT today. Review of Systems Review of Systems Physical Exam Vital Signs: Temp: 98.6 F (37 C) | BP: 143/58 | Pulse: 52 | Resp: 16 | Pain Ratin (out of 10) | Weight: 67.3 kg (148 lb 5.9 oz) | O2 Device: Room Air | SpO2: 95 % Maximum Temperatures (last 24 hours) Temperature Maximum Max Temp 98.6 F (37 C) Intake and Output: 01/26 0700 - 01/27 0659 In: 100 [Oral:100] Out: 200 [Urine:200] Physical Exam Vitals and nursing note reviewed. Constitutional: General: He is not in acute distress. Appearance: He is well-developed. He is not diaphoretic. HENT: Head: Normocephalic and atraumatic. Right Ear: External ear normal. Decreased hearing noted. Left Ear: External ear normal. Decreased hearing noted. Mouth/Throat: Pharynx: No oropharyngeal exudate. Eyes: General: No scleral icterus. Neck: Trachea: No tracheal deviation. Cardiovascular: Rate and Rhythm: Regular rhythm. Bradycardia present. Heart sounds: Normal heart sounds. No murmur heard. Pulmonary: Effort: Pulmonary effort is normal. No respiratory distress. Breath sounds: Normal breath sounds. No wheezing or rales. Abdominal: General: Bowel sounds are normal. There is no distension. Palpations: Abdomen is soft. Tenderness: There is no abdominal tenderness. There is no guarding or rebound. Musculoskeletal: Cervical back: Neck supple. Skin: General: Skin is warm and dry. Findings: Bruising (improving hematoma on R forearm) present. No erythema or rash. Neurological: Mental Status: He is alert and oriented to person, place, and time. Cranial Nerves: No cranial nerve deficit. Labs Labs (Last day) 01/27/21 1417 - 01/26/21 1837 GENERAL COAGULATION 01/27/21 1417 01/27/21 0736 01/27/21 0736 01/27/21 0127 01/26/21 1837 GENERAL COAGULATION Protime 12.0-14.5 (secs) 14.5 INR 0.9-1.1 1.2 Heparin Xa Unfractionated 0.30-0.70 (U/mL) 0.41 0.27 0.36 0.26 01/27/21 1054 - 01/26/21 1728 GLUCOSE POINT OF CARE 01/27/21 1054 01/27/21 0512 01/26/21 2155 01/26/21 1728 GLUCOSE POINT OF CARE Glucose POC 70-99 (mg/dL) 180 175 217 182 Medical Decision making Medical Decision Making Milly Waldrop CNP - 01/27/2021 12:47 PM CDT Electrophysiology: Dr. Jones will plan to place loop recorder today to monitor for further tachyarrhythmias and any concerning bradycardia. Telemetry reviewed and has short bursts of PSVT. No further AV block or significant bradycardia. With this will increase metoprolol to 50 mg daily. Can titrate if needed based on heart rates and blood pressure. Patient will be following with [facility] going forward as he lives in [place] so will have linq monitoring transferred to [place] in the future. Please let us know if any further concerns, electrophysiology will sign off. Milly Waldrop CNP - 01/26/2021 2:54 PM CDT Electrophysiology: Telemetry reviewed and burden of nonsustained SVT and nonsustained VT has greatly improved. Rare ectopy noted. One episode of 2.8 second AV block (Versus sinus pause, a lot of artifact) at 1838 last evening. Pt asymptomatic. States he is feeling well and denies any lightheadedness or dizziness. Recommend to continue low dose beta prudence and tentatively Dr. Jones will plan to implant loop recorder tomorrow. Patient agreeable. Asya Jung MD - 01/26/2021 2:49 PM CDT Images from the original note were not included. DAILY PROGRESS NOTE Eddie Mario is a 85yr old male admitted on 01/23/2021 9:49 PM. Impression / Plan Active Problems: TIA (transient ischemic attack) Tachycardia Resolved Problems: * No resolved hospital problems. 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 Complex situation as high risk for hemorrhage into area of acute stroke with anticoagulation, but also high risk of further strokes if thrombus left untreated. Discussed in depth with cardiology, neurovascular, and electrophysiology. Heparin drip without a bolus initiated after discussion of risks and benefits with the patient, his spouse, and his son-in-law. Continue to monitor neuro signs closely and stroke scale. Continue atorvastatin. Appreciate neurovascular consultation. Will need to transition to po anticoagulation. Will plan repeat CT head tomorrow (72 hours after starting anticoag). #Nonsustained SVT #Nonsustained VT #Intermittent AV block with multiple pauses of 4 to 6 seconds Appreciate EP review. Arrhythmias thought secondary to acute stroke and we will continue to monitor closely on telemetry. Plan for loop recorder prior to discharge. Starting low dose beta prudence. # CAD s/p LAD PCI S/p stent today. Small post procedural radial hematoma. On DAPT with plavix and aspirin. Cardiology following. #Type 2 diabetes on Metformin Hold Metformin per hospital policy. Sliding scale insulin if needed. #Hypertension Holding home antihypertensives to allow permissive hypertension. #UTI discontinue IV ceftriaxone. WBC count trending down. Blood cultures from [place] negative. # Anemia Stable and asymptomatic #Disposition Discussed CODE STATUS at length. Given the complexity of his situation, age, and multiple comorbidities with initiation of anticoagulation and the risks of that, changed CODE STATUS to DNR. Reassured patient and family that we would still treat all medical conditions up to the point of cardiac arrest/natural . Plan to d/c home with family when stable Interval History HPI Tolerated stent yesterday. No new neuro findings. No pain. Doing well with therapies. Review of Systems Review of Systems Constitutional: Negative for appetite change, diaphoresis, fatigue and fever. Respiratory: Negative for cough, shortness of breath and wheezing. Cardiovascular: Negative for chest pain, palpitations and leg swelling. Gastrointestinal: Negative for abdominal pain, constipation, diarrhea, nausea and vomiting. Genitourinary: Negative for dysuria. Skin: Positive for color change (R arm). Neurological: Negative for dizziness and light-headedness. Psychiatric/Behavioral: Negative for dysphoric mood and sleep disturbance. The patient is not nervous/anxious. Physical Exam Vital Signs: Temp: 97.9 F (36.6 C) | BP: 143/79 | Pulse: 59 | Resp: 98 | Pain Ratin (out of 10) | Weight: 67.3 kg (148 lb 5.9 oz) | O2 Device: Room Air | SpO2: 96 % Maximum Temperatures (last 24 hours) Temperature Maximum Max Temp 99.5 F (37.5 C) Intake and Output: 01/25 0700 - 01/26 0659 In: 1292 [Oral:300] Out: 1451 [Urine:1450] Physical Exam Vitals and nursing note reviewed. Constitutional: General: He is not in acute distress. Appearance: He is well-developed. He is not diaphoretic. HENT: Head: Normocephalic and atraumatic. Right Ear: External ear normal. Left Ear: External ear normal. Mouth/Throat: Pharynx: No oropharyngeal exudate. Eyes: General: No scleral icterus. Neck: Trachea: No tracheal deviation. Cardiovascular: Rate and Rhythm: Normal rate and regular rhythm. Heart sounds: Normal heart sounds. No murmur heard. Pulmonary: Effort: Pulmonary effort is normal. No respiratory distress. Breath sounds: Normal breath sounds. No wheezing or rales. Abdominal: General: Bowel sounds are normal. There is no distension. Palpations: Abdomen is soft. Tenderness: There is no abdominal tenderness. There is no guarding or rebound. Musculoskeletal: Cervical back: Neck supple. Skin: General: Skin is warm and dry. Findings: Bruising (R forearm) present. No erythema or rash. Neurological: Mental Status: He is alert and oriented to person, place, and time. Cranial Nerves: No cranial nerve deficit. Psychiatric: Mood and Affect: Mood normal. Labs Labs (Last day) 01/26/21 0521 - 01/26/21 0521 CBC 01/26/21 0521 CBC WBC 4.0-11.0 (K/uL) 11.5 RBC 4.40-5.80 (M/uL) 3.03 Hemoglobin 13.5-17.5 (g/dL) 9.0 Hematocrit 40.0-50.0 (%) 27.7 MCV 80.0-98.0 (fL) 91.4 MCH 25.5-34.0 (pg) 29.7 MCHC 31.5-36.5 (g/dL) 32.5 RDW-CV 11.5-15.5 (%) 13.2 RDW-SD 35.5-50.0 (fl) 43.9 Platelet Count 140-400 (K/uL) 285 MPV 8.5-12.0 (fL) 9.8 01/26/21 0521 - 01/26/21520 CHEMISTRY 01/26/21520 CHEMISTRY Glucose 70-100 (mg/dL) 178 Sodium 135-145 (meq/L) 140 Potassium 3.5-5.3 (meq/L) 4.1 Chloride 99-110 (meq/L) 110 CO2 20-29 (meq/L) 22 Anion Gap with K 6-20 (meq/L) 12 BUN 6-22 (mg/dL) 19 Creatinine 0.80-1.30 (mg/dL) 1.11 BUN/Creatinine Ratio 10.0-25.0 17.1 Calcium 8.5-10.5 (mg/dL) 8.4 eGFR >=60 (mL/min/1.73m2) 76 eGFR Non- >=60 (mL/min/1.73m2) 63 01/26/21 05 - 01/26/21520 DIFFERENTIAL 01/26/21520 DIFFERENTIAL Seg Neut Absolute 1.8-8.0 (K/uL) 9.3 Lymphocytes Absolute 0.8-4.1 (K/uL) 0.9 Monocytes Absolute 0.0-1.0 (K/uL) 0.8 Eosinophils Absolute 0.0-0.7 (K/uL) 0.3 Basophil Absolute 0.0-0.2 (K/uL) 0.1 Immature Granulocyte Absolute 0.00-0.06 (K/uL) 0.09 Neutrophils Percent (%) 80.7 Neutrophils Abs. (Segs and Bands) (/uL) 9,300 Lymphocytes Percent (%) 8.1 Monocytes Percent (%) 7.3 Immature Granulocyte Percent (%) 0.8 Eosinophils Percent (%) 2.7 Basophil Percent (%) 0.4 Nucleated RBC (/100 WBC's) 0 01/26/21 1230 - 01/25/211951 GENERAL COAGULATION 01/26/21 1230 01/26/21 1230 01/26/21 0521 01/25/211951 GENERAL COAGULATION Protime 12.0-14.5 (secs) 14.8 INR 0.9-1.1 1.2 Heparin Xa Unfractionated 0.30-0.70 (U/mL) 0.29 0.19 <=0.10 01/26/21 1127 - 01/25/21 1655 GLUCOSE POINT OF CARE 01/26/21 1127 01/26/21 0508 01/25/21 1946 01/25/21 1655 GLUCOSE POINT OF CARE Glucose POC 70-99 (mg/dL) 167 159 166 201 01/26/21 0521 - 01/26/21 0521 OTHER 01/26/21 05 OTHER Age (Years) 85 Medical Decision making Medical Decision Making Sean benz, PHARM D - 01/26/2021 2:40 PM CDT Warfarin Initial Consult Note Mr. Mario has been initiated on warfarin per pharmacy protocol for apical LV thrombus. Desired goal INR is 2-3. Patient is being newly started on anticoagulation therapy. Clinically significant drug interactions: Clopidogrel, aspirin Plan: Warfarin: 2.5 mg today. Pharmacy will monitor and if indicated, adjust dose per the anticoagulation policy. Thank you very much for the consult. Sean Lawson, PHARM D Asya Fernandez MD - 01/25/2021 1:13 PM CDT Images from the original note were not included. DAILY PROGRESS NOTE Eddie Mario is a 85yr old male admitted on 01/23/2021 9:49 PM. Impression / Plan Active Problems: TIA (transient ischemic attack) Tachycardia Resolved Problems: * No resolved hospital problems. 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 Complex situation as high risk for hemorrhage into area of acute stroke with anticoagulation, but also high risk of further strokes if thrombus left untreated. Discussed in depth with cardiology, neurovascular, and electrophysiology. Heparin drip without a bolus initiated after discussion of risks and benefits with the patient, his spouse, and his son-in-law. Will monitor neuro signs closely and stroke scale. Continue atorvastatin. Appreciate neurovascular consultation. Will need to transition to po anticoagulation. #Nonsustained SVT #Nonsustained VT #Intermittent AV block with multiple pauses of 4 to 6 seconds Appreciate EP review. Arrhythmias thought secondary to acute stroke and we will continue to monitorclosely on telemetry. Plan for loop recorder prior to discharge. Starting low dose beta prudence. # CAD s/p LAD PCI S/p stent today. Small post procedural radial hematoma. On DAPT with plavix and aspirin. Cardiology following. #Type 2 diabetes on Metformin Hold Metformin per hospital policy. Sliding scale insulin if needed. #Hypertension Holding home antihypertensives to allow permissive hypertension. #UTI Continue IV ceftriaxone. WBC count trending down. Blood cultures from [place] negative. # Anemia Stable and asymptomatic #Disposition Discussed CODE STATUS at length. Given the complexity of his situation, age, and multiple comorbidities with initiation of anticoagulation and the risks of that, changed CODE STATUS to DNR. Reassuredpatient and family that we would still treat all medical conditions up to the point of cardiac arrest/natural . Continue physical and occupational therapy assessments to determine discharge needs. 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 Tolerated well, has a small hematoma. Hungry. Review of Systems Review of Systems Constitutional: Negative for appetite change, diaphoresis, fatigue and fever. Respiratory: Negative for cough, shortness of breath and wheezing. Cardiovascular: Negative for chest pain, palpitations and leg swelling. Gastrointestinal: Negative for abdominal pain, constipation, diarrhea, nausea and vomiting. Genitourinary: Negative for dysuria. Musculoskeletal: Positive for arthralgias (R hand aches). Skin: Negative for color change. Neurological: Negative for dizziness and light-headedness. Psychiatric/Behavioral: Negative for dysphoric mood and sleep disturbance. The patient is not nervous/anxious. Physical Exam Vital Signs: Temp: 99.2 F (37.3 C) | BP: 147/66 | Pulse: 67 | Resp: 98 | Pain Ratin (out of 10) | Weight: 67.3 kg (148 lb 5.9 oz) | O2 Device: Room Air | SpO2: 92 % Maximum Temperatures (last 24 hours) Temperature Maximum Max Temp 100.2 F (37.9 C) Intake and Output: 01/24 0700 - 01/25 0659 In: 2523 [Oral:450] Out: 0 Physical Exam Vitals and nursing note reviewed. Constitutional: General: He is not in acute distress. Appearance: He is well-developed. He is not diaphoretic. HENT: Head: Normocephalic and atraumatic. Right Ear: External ear normal. Left Ear: External ear normal. Mouth/Throat: Pharynx: No oropharyngeal exudate. Eyes: General: No scleral icterus. Neck: Trachea: No tracheal deviation. Cardiovascular: Rate and Rhythm: Normal rate and regular rhythm. Occasional extrasystoles are present. Heart sounds: Normal heart sounds. No murmur heard. Pulmonary: Effort: Pulmonary effort is normal. No respiratory distress. Breath sounds: Normal breath sounds. No wheezing or rales. Abdominal: General: Bowel sounds are normal. There is no distension. Palpations: Abdomen is soft. Tenderness: There is no abdominal tenderness. There is no guarding or rebound. Musculoskeletal: Cervical back: Neck supple. Skin: General: Skin is warm and dry. Findings: No erythema or rash. Comments: Some area of ecchymoses and swelling of the R wrist Neurological: Mental Status: He is alert and oriented to person, place, and time. Cranial Nerves: No cranial nerve deficit. Labs Labs (Last day) 01/25/21 0634 - 01/25/21 0634 CBC 01/25/21 0634 CBC WBC 4.0-11.0 (K/uL) 14.0 RBC 4.40-5.80 (M/uL) 3.20 Hemoglobin 13.5-17.5 (g/dL) 9.1 Hematocrit 40.0-50.0 (%) 28.5 MCV 80.0-98.0 (fL) 89.1 MCH 25.5-34.0 (pg) 28.4 MCHC 31.5-36.5 (g/dL) 31.9 RDW-CV 11.5-15.5 (%) 13.2 RDW-SD 35.5-50.0 (fl) 43.1 Platelet Count 140-400 (K/uL) 226 MPV 8.5-12.0 (fL) 9.3 01/25/21 0634 - 01/25/21 0634 CHEMISTRY 01/25/21 0634 CHEMISTRY Glucose 70-100 (mg/dL) 182 Sodium 135-145 (meq/L) 140 Potassium 3.5-5.3 (meq/L) 4.1 Chloride 99-110 (meq/L) 109 CO2 20-29 (meq/L) 22 Anion Gap with K 6-20 (meq/L) 13 BUN 6-22 (mg/dL) 25 Creatinine 0.80-1.30 (mg/dL) 1.15 BUN/Creatinine Ratio 10.0-25.0 21.7 Calcium 8.5-10.5 (mg/dL) 8.5 eGFR >=60 (mL/min/1.73m2) 73 eGFR Non- >=60 (mL/min/1.73m2) 60 01/25/21 0634 - 01/25/21 0634 DIFFERENTIAL 01/25/21 0634 DIFFERENTIAL Seg Neut Absolute 1.8-8.0 (K/uL) 11.8 Lymphocytes Absolute 0.8-4.1 (K/uL) 0.9 Monocytes Absolute 0.0-1.0 (K/uL) 0.9 Eosinophils Absolute 0.0-0.7 (K/uL) 0.2 Basophil Absolute 0.0-0.2 (K/uL) 0.1 Immature Granulocyte Absolute 0.00-0.06 (K/uL) 0.14 Neutrophils Percent (%) 84.1 Neutrophils Abs. (Segs and Bands) (/uL) 11,800 Lymphocytes Percent (%) 6.2 Monocytes Percent (%) 6.7 Immature Granulocyte Percent (%) 1.0 Eosinophils Percent (%) 1.6 Basophil Percent (%) 0.4 Nucleated RBC (/100 WBC's) 0 01/25/21 1248 - 01/25/21 1045 ECG/EKG 01/25/21 1248 01/25/21 1045 ECG/EKG EKG WAVEFORM Sinus rhythm with Premature atrial complexes in a pattern of bigeminy Minimal voltage criteria for LVH, may be normal variant ( Sokolow-Barnes ) Possible Anterior infarct (cited on or before 25-JAN-2021) Abnormal ECG When compared with ECG of 25-JAN-2021 10:45, No significant change was found Ventricular Rate: 63 BPM Atrial Rate: 63 BPM P-R Interval: 174 ms QRS Duration: 84 ms Q-T Interval: 414 ms QTc Calculation(Bazett): 423 ms Calculated P Temple: 28 degrees Calculated R Temple: -2 degrees Calculated T Temple: 79 degrees WAVEFORM Sinus bradycardia with Premature atrial complexes in a pattern of bigeminy Minimal voltage criteria for LVH, may be normal variant ( Sokolow-Barnes ) Septal infarct (cited on or before 25-JAN-2021) Abnormal ECG ECG not diagnostic for Acute Coronary Syndrome; consider clinical findings When compared with ECG of 24-JAN-2021 13:00, Premature atrial complexes are now Present ST no longer elevated in Anterior leads Ventricular Rate: 53 BPM Atrial Rate: 53 BPM P-R Interval: 178 ms QRS Duration: 86 ms Q-T Interval: 430 ms QTc Calculation(Bazett): 403 ms Calculated P Temple: 95 degrees Calculated R Temple: -16 degrees Calculated T Temple: 66 degrees 01/25/21 1224 - 01/24/21 1519 GENERAL COAGULATION 01/25/21 1224 01/25/21 0634 01/24/21 2212 01/24/21 1519 GENERAL COAGULATION Heparin Xa Unfractionated 0.30-0.70 (U/mL) 0.92 0.18 <=0.10 <=0.10 01/25/21 1118 - 01/24/21 1707 GLUCOSE POINT OF CARE 01/25/21 1118 01/25/21 0540 01/24/21 1707 GLUCOSE POINT OF CARE Glucose POC 70-99 (mg/dL) 160 171 232 01/25/21 0634 - 01/25/21 0634 OTHER 01/25/21 0634 OTHER Age (Years) 85 Medical Decision making Medical Decision Making Milly Waldrop CNP - 01/25/2021 11:08 AM CDT Electrophysiology: Telemetry reviewed. Continues to have non sustained VT and non sustained SVT. Intermittent AV block,longest pause 2.4 seconds and was at 2314 last night. Patient states no lightheadedness or dizziness. Patient had LHC today with PCI to LAD and significant CAD noted. Discussed with Dr. Jones and agree with cardiology recommendations to start low dose metoprolol. Hopeful now after PCI the burden intermittent SVT and nonsustained VT with improve. Dr. Jones recommended loop recorder on discharge to monitor for arrhythmias and AV block. No plan for pacemaker at this time. Patient is agreeable to this. Will continue to follow. Eduardo Ng MD - 01/25/2021 7:26 AM CDT Cardiology Inpatient Progress Note Name: Eddie Mario ROOM/BED: [facility] PCP: Garland Nieves MD Admission date: 01/23/2021 Impression / Plan 1. Left ventricular apical thrombus 2. Multiple small acute infarct in the right midbrain 3. Nonsustained SVT with intermittent AV block and pauses 4. CAD s/p LAD stent on 01/24 This is a 85-year-old male with history of CAD with prior stent more than 10 years ago at [facility] [place], presented with left-sided weakness and some blurry vision. He was noted to have rightmidbrain stroke, Echocardiogram showed EF of 55% with regional wall motion abnormalities and apical thrombus measuring 13 mm in the left ventricle, moderate aortic stenosis with mean gradient of 34 mmHg. The patient underwent LHC which showed 99 % distal LAD treated with 2.25x 38 resolute post dilated with 2.5 NC balloon kissing balloon to LAD- D2 , 50 % mid RCA, 80 % diffuse D1 medical Rx, 50 % midLAD instent restenosis Plans: Continue with Toprol-XL 25 mg, Lipitor --Continue with Plavix and ASA Keep patient on telemetry --He will need a triple therapy for at least 1 month Thank you for consulting us to participate in the care of this patient. Please call with questions Pt was seen and discussed with Dr Abdiel Wayne MD Internal Medicine Resident-[id number] Pager Number: [phone] 01/25/2021 History See above Review of Systems Review of Systems Constitutional: Negative for chills, decreased appetite, diaphoresis, fever and weight loss. HENT: Negative for congestion, hoarse voice and sore throat. Cardiovascular: Negative for chest pain, dyspnea on exertion and leg swelling. Respiratory: Negative for cough, shortness of breath, sputum production and wheezing. Skin: Negative for color change, itching and rash. Musculoskeletal: Negative for back pain, falls and muscle weakness. Gastrointestinal: Negative for bloating, constipation, diarrhea, nausea and vomiting. Genitourinary: Negative for dysuria, flank pain and hesitancy. Neurological: Negative for dizziness, headaches, light-headedness and weakness. Psychiatric/Behavioral: Negative for altered mental status, depression and hallucinations. Physical Exam Vital signs: Blood pressure 147/66, pulse 67, temperature 100.2 F (37.9 C), resp. rate 98, height 170.2 cm (67"), weight 67.3 kg (148 lb 5.9 oz), SpO2 92 %. Physical Exam Constitutional: General: He is not in acute distress. Appearance: He is not diaphoretic. HENT: Head: Normocephalic and atraumatic. Mouth/Throat: Pharynx: No oropharyngeal exudate. Eyes: General: No scleral icterus. Pupils: Pupils are equal, round, and reactive to light. Cardiovascular: Rate and Rhythm: Normal rate. Heart sounds: Normal heart sounds. No murmur heard. Pulmonary: Effort: Pulmonary effort is normal. Breath sounds: Normal breath sounds. No wheezing or rales. Abdominal: General: Bowel sounds are normal. There is no distension. Palpations: Abdomen is soft. Tenderness: There is no abdominal tenderness. Musculoskeletal: General: No tenderness. Normal range of motion. Cervical back: Neck supple. Skin: General: Skin is warm and dry. Findings: No erythema or rash. Neurological: Mental Status: He is alert and oriented to person, place, and time. Patient Lines/Drains/Airways Status Active Lines Name: Placement date: Placement time: Site: Days: Peripheral IV 01/24/21 Forearm Distal;Left;Posterior 01/24/21 Forearm 1 Labs/Imaging All labs and imaging were reviewed and pertinent labs are discussed in assessment. Associated attestation - Aliza Rodriguez MD - 01/25/2021 9:49 PM CDT I discussed the patient with the resident and personally interviewed and examined the patient. I verified in the medical record all resident documentation/findings, including history, physical exam, and medical decision making, and I agree with the resident's documentation. Patient will need triple therapy for 1 mo, than Plavix and warfarin lifelong. From cardiac point of view he can be discharged R wrist hematoma-noted.Asya Fernandez MD - 01/24/2021 3:31 PM CDT Images from the original note were not included. DAILY PROGRESS NOTE Eddie Mario is a 85yr old male admitted on 01/23/2021 9:49 PM. Impression / Plan Active Problems: TIA (transient ischemic attack) Tachycardia Resolved Problems: * No resolved hospital problems. 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 Complex situation as high risk for hemorrhage into area of acute stroke with anticoagulation, but also high risk of further strokes if thrombus left untreated. Discussed in depth with cardiology, neurovascular, and electrophysiology. Heparin drip without a bolus initiated after discussion of risks and benefits with the patient, his spouse, and his son-in-law. Will monitor neuro signs closely and stroke scale. Continue atorvastatin. Holding losartan and carvedilol to allow permissive hypertension. Await neurovascular consultation. #Nonsustained SVT #Nonsustained VT #Intermittent AV block with multiple pauses of 4 to 6 seconds Appreciate EP review. Arrhythmias thought secondary to acute stroke and we will continue to monitorclosely on telemetry. Plan for loop recorder prior to discharge. #Type 2 diabetes on Metformin Hold Metformin per hospital policy. Sliding scale insulin if needed. #Hypertension Holding home antihypertensives to allow permissive hypertension. #UTI Continue IV ceftriaxone. #Disposition Discussed CODE STATUS at length. Given the complexity of his situation, age, and multiple comorbidities with initiation of anticoagulation and the risks of that, changed CODE STATUS to DNR. Reassuredpatient and family that we would still treat all medical conditions up to the point of cardiac arrest/natural . Continue physical and occupational therapy assessments to determine discharge needs. Interval History HPI Admitted yesterday for stroke. Symptoms have mostly resolved. However, since admission, has had multiple sinus pauses. Has now been found to have large apical LV thrombus. Review of Systems Review of Systems Constitutional: Negative for appetite change, diaphoresis, fatigue and fever. Respiratory: Negative for cough, shortness of breath and wheezing. Cardiovascular: Negative for chest pain, palpitations and leg swelling. Gastrointestinal: Negative for abdominal pain, constipation, diarrhea, nausea and vomiting. Genitourinary: Negative for dysuria. Neurological: Negative for dizziness and light-headedness. Psychiatric/Behavioral: Negative for dysphoric mood and sleep disturbance. The patient is not nervous/anxious. Physical Exam Vital Signs: Temp: 98.5 F (36.9 C) | BP: 131/65 | Pulse: 71 | Resp: 98 | Pain Ratin (out of 10) | Weight: 65.5 kg (144 lb 6.4 oz) | O2 Device: Room Air | SpO2: 96 % Maximum Temperatures (last 24 hours) Temperature Maximum Max Temp 99.9 F (37.7 C) Intake and Output: No intake/output data recorded. Physical Exam Vitals and nursing note reviewed. Constitutional: General: He is not in acute distress. Appearance: He is well-developed. He is not diaphoretic. HENT: Head: Normocephalic and atraumatic. Right Ear: External ear normal. Decreased hearing noted. Left Ear: External ear normal. Decreased hearing noted. Mouth/Throat: Pharynx: No oropharyngeal exudate. Eyes: General: No scleral icterus. Neck: Trachea: No tracheal deviation. Cardiovascular: Rate and Rhythm: Normal rate and regular rhythm. Heart sounds: Normal heart sounds. No murmur heard. Pulmonary: Effort: Pulmonary effort is normal. No respiratory distress. Breath sounds: Normal breath sounds. No wheezing or rales. Abdominal: General: Bowel sounds are normal. There is no distension. Palpations: Abdomen is soft. Tenderness: There is no abdominal tenderness. There is no guarding or rebound. Musculoskeletal: Cervical back: Neck supple. Skin: General: Skin is warm and dry. Findings: No erythema or rash. Neurological: General: No focal deficit present. Mental Status: He is alert. Psychiatric: Mood and Affect: Mood normal. Labs Labs (Last day) 01/24/21807 - 01/24/21 08 CBC 01/24/21 08 CBC WBC 4.0-11.0 (K/uL) 18.9 RBC 4.40-5.80 (M/uL) 3.16 Hemoglobin 13.5-17.5 (g/dL) 9.4 Hematocrit 40.0-50.0 (%) 28.4 MCV 80.0-98.0 (fL) 89.9 MCH 25.5-34.0 (pg) 29.7 MCHC 31.5-36.5 (g/dL) 33.1 RDW-CV 11.5-15.5 (%) 13.0 RDW-SD 35.5-50.0 (fl) 43.0 Platelet Count 140-400 (K/uL) 220 MPV 8.5-12.0 (fL) 9.8 01/24/21 08 - 01/24/21 08 CHEMISTRY 01/24/21 0801/24/21 08 CHEMISTRY Glucose 70-100 (mg/dL) 236 Sodium 135-145 (meq/L) 137 Potassium 3.5-5.3 (meq/L) 4.3 Chloride 99-110 (meq/L) 108 CO2 20-29 (meq/L) 21 Anion Gap with K 6-20 (meq/L) 12 BUN 6-22 (mg/dL) 31 Creatinine 0.80-1.30 (mg/dL) 1.37 BUN/Creatinine Ratio 10.0-25.0 22.6 Calcium 8.5-10.5 (mg/dL) 8.3 Magnesium 1.8-2.4 (mg/dL) 1.8 eGFR >=60 (mL/min/1.73m2) 60 eGFR Non- >=60 (mL/min/1.73m2) 49 01/24/21 08 - 01/24/21 08 DIFFERENTIAL 01/24/21 08 DIFFERENTIAL Seg Neut Absolute 1.8-8.0 (K/uL) 16.5 Lymphocytes Absolute 0.8-4.1 (K/uL) 0.9 Monocytes Absolute 0.0-1.0 (K/uL) 1.2 Eosinophils Absolute 0.0-0.7 (K/uL) 0.1 Basophil Absolute 0.0-0.2 (K/uL) 0.0 Immature Granulocyte Absolute 0.00-0.06 (K/uL) 0.17 Neutrophils Percent (%) 87.4 Neutrophils Abs. (Segs and Bands) (/uL) 16,500 Lymphocytes Percent (%) 4.5 Monocytes Percent (%) 6.6 Immature Granulocyte Percent (%) 0.9 Eosinophils Percent (%) 0.4 Basophil Percent (%) 0.2 Nucleated RBC (/100 WBC's) 0 01/24/21 1300 - 01/24/21 1300 ECG/EKG 01/24/21 1300 ECG/EKG EKG WAVEFORM Sinus bradycardia Left axis deviation Minimal voltage criteria for LVH, may be normal variant ( Matthew product ) Poor R-Wave Progression Abnormal ECG No previous ECGs available Ventricular Rate: 57 BPM Atrial Rate: 57 BPM P-R Interval: 164 ms QRS Duration: 86 ms Q-T Interval: 378 ms QTc Calculation(Bazett): 367 ms Calculated P Temple: 83 degrees Calculated R Temple: -33 degrees Calculated T Temple: 84 degrees 01/24/21 1120 - 01/24/21 0602 GLUCOSE POINT OF CARE 01/24/21 1120 01/24/21 0602 GLUCOSE POINT OF CARE Glucose POC 70-99 (mg/dL) 194 168 01/24/21 0808 - 01/24/21 0808 LIPID 01/24/21 0808 LIPID Cholesterol 100-200 (mg/dL) 93 HDL 40-80 (mg/dL) 17 LDL 0-129 (mg/dL) 52 Triglyceride 50-150 (mg/dL) 119 01/24/21 0808 - 01/24/21 0808 OTHER 01/24/21 0808 OTHER Age (Years) 85 Medical Decision making Medical Decision Making documented in this encounter H&P Notes Ana Cristina Friedman DO - 01/23/2021 10:19 PM CDT Hospital Admission History and Physical Chief complaint: Loss of balance blurred vision, left-sided weakness History chief complaint: Patient is an 85-year-old male with rectal history of diabetes who presentsto outside ER with primary complaint of blurred vision loss of balance and possible left-sided weakness. Patient was last known well yesterday at 9:30 AM. Appears his symptoms came on very gradually during the day yesterday. This morning he says his symptoms are markedly worse using double i.e. 2 of everything. Patient thinks his left side may be little weaker than his right side. He was having problems with balance. In the ER at the outside hospital he was noted to have some mild left-sided weakness. He was noticedto not be able to abduct his right eye. He was described as having mild left arm and leg weakness. Patient had a plain CT of the head did not show any acute changes. EKG was normal sinus rhythm. Patient did have a positive urinalysis and was treated with IV ceftriaxone. His lactic acid was normal. Hiswhite count was noted to be 18,000. It appears as though his symptoms resolved either immediately before sometime during his life flight. [place] report to nursing that they did not note any focal deficits at the time they transported him. On arrival here patient has no symptomatic complaints his vision is normal. He does not have any focal deficits noted by staff here. He was noted on telemetry to have brief runs of tachycardia. They were unable to save the rhythm strips. Runs of tachycardia were extremely brief. And he went from a heart rate of 140s very quickly back into heart rate in the 60s. In speaking with the patient he denies any known history of atrial fibrillation but is not a very good historian. He denies taking any blood thinners. Patient has no active current complaints. He denies any previous history of stroke. Review of systems: Positive history of diabetes positive hypertension patient denies any known history of atrial fibrillation rest review of systems are negative Physical exam patient's vital signs patient afebrile pulse 99 respiratory rate is within normal limits blood pressure is 139/71 General he is resting bed no acute distress head atraumatic eyes no icterus heart is regular rhythm lungs are clear to auscultation his abdomen is soft nontender extremities no edema neurologic exam cranial nerves II through XII tested and found to be intact he has no deficits with peripheral field testing. Is alert and oriented motor exam is 5 out of 5 in all 4 [id number] is intact bilaterally he has no subjective numbness in any of his extremities. Psychiatric is calm pleasant cooperative skin no rash noted musculoskeletal no major joint deformities Labs: From outside hospital signs 139 potassium is 3.9 bicarb is 24 BUN is 38 creatinine is 1.8 glucose is 133 calcium is 7.7 bilirubin 0.4 ALT is 47 AST is 36 alk phos is 64 troponin is 0.029 albumin was 2.2 urinalysis shows 3+ leuk esterase WBCs were too numerous to count he had moderate bacteria lactic acid was 1.7 white count was 18,000 hemoglobin is 9 platelet count was 233 INR is 1.0 PTT was 25 Assessment: 1. Acute neurologic deficits suspect stroke deficits had completely resolved. 2. Chronic renal failure with creatinine of 1.8 3. Brief episodes of tachycardia noted by nursing unclear if this was SVT or A. fib 4. Diabetes mellitus on Metformin 5. History of hypertension 6. UTI Plan: 1. Continue telemetry monitoring, will try and capture some rhythm strips if he has tachycardia, apparently they were unable to capture them because of some issue with the monitoring tech 2. MRI of the brain without contrast and MRA (patient unable to have CTA due to chronic renal failure) 3. PT, OT, speech 4. Echocardiogram 5. Aspirin 81 mg daily 6. Lipid panel 7. Statin 8. Hold his antihypertensives 9. PRN IV Lopressor only for sustained tachycardia 10. IV ceftraixone 11. Neurovascular consult Addendum: IMPRESSION: No high-grade stenosis or occlusive disease within the major arterial vasculature. 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 Neurovascular interventional follow-up recommended. Finalized by: Gabriele Donato MD on 01/24/2021 12:48 AM CDT IMPRESSION: 1. 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 2. Generalized atrophy and moderate chronic ischemic white matter disease. 3. Dr. Sumner was notified of results by phone at 1:00 AM. Finalized by: Pako Garrison on 01/24/2021 1:02 AM CDT History None No Known Allergies Past Medical History: Diagnosis Date CAD (coronary artery disease) PCI Diabetes (HCC) HTN (hypertension) No past surgical history on file. Family History Problem Relation Age of Onset Cerebrovascular Accident Father Social History Socioeconomic History Marital status: Spouse name: Not on file Number of children: Not on file Years of education: Not on file Highest education level: Not on file Tobacco Use Smoking status: Never Smoker Smokeless tobacco: Never Used Substance and Sexual Activity Alcohol use: Never Social Determinants of Health Physical Activity: Days of Exercise per Week: Minutes of Exercise per Session: Stress: Feeling of Stress : Social Connections: Frequency of Communication with Friends and Family: Frequency of Social Gatherings with Friends and Family: Attends Taoism Services: Active Member of Clubs or Organizations: Attends Club or Organization Meetings: Marital Status: Intimate Partner Violence: Fear of Current or Ex-Partner: Emotionally Abused: Physically Abused: Sexually Abused: Financial Resource Strain: Difficulty of Paying Living Expenses: Food Insecurity: Worried About Running Out of Food in the Last Year: Ran Out of Food in the Last Year: Transportation Needs: Lack of Transportation (Medical): Lack of Transportation (Non-Medical): Review of Systems Review of Systems Physical / Results Current Vital Signs Temp: 99.9 F (37.7 C) BP: 139/71 Weight: 65.5 kg (144 lb 6.4 oz) Resp: 99 Current BMI (>50 = increased risk): 22.61 O2 Device: Room Air Pain Ratin Physical Exam documented in this encounter Procedure Notes Adam Jones MD - 01/27/2021 3:50 PM CDTAssociated Order(s): LOOP RECORDER IMPLANT CATH LAB ELECTROPHYSIOLOGY PROCEDURE NOTE PROCEDURE: LINQ Loop Recorder Implantation Drafting Teacher: Adam Jones MD Date: 01/27/21 INDICATION: Short SVT, NSVT, AV block pauses - to monitor for future various arrythmias and pauses PROCEDURE: The patient was brought to the hospital Aru prep room . After informed consent was obtained, the patient was prepped and draped in the usual sterile manner. Next, the left 4th intercostal region lateral to the left sternal margin was anesthetized with 1% Xylocaine solution. A blade was used to make approximately a 1/4-inch incision in the skin. A tunneling tool was introduced. Next a LINQLoop Recorder was injected into the pocket. The skin was closed with dermabond Incision was covered with a Prim[place] dressing/bandaid. The patient tolerated the procedure well with no apparent complications. Specimens removed-none. Blood loss- 5 cc or less. ASSESSMENT: 1. Successful LINQ Loop Recorder implantation PLAN: The patient will be observed an hour post procedure. The patient is to monitor the incision site for signs of infection or bleeding. The patient is to follow up in pacemaker clinic in 2 weeks forincision check and device interrogation. Mallory Erazo MD - 01/25/2021 9:54 AM CDT Immediate Post-Cardiac Catheterization Progress Note Att. Phys: Asya Fernandez MD Operative Date: 01/25/2021 Surgeon: Mallory Neal MD Groundman: none Pre-Operative Diagnosis: Apical thrombus Post-Operative Diagnosis: 99 % distal LAD treated with 2.25x 38 resolute post dilated with 2.5 NC balloon kissing balloon to LAD- D2 , 50 % mid RCA, 80 % diffuse D1 medical Rx, 50 % mid LAD instent restenosis Anesthesia Type: See Cloud Operations Engineer procedure log Operative Procedure: coronary angio, PCI LAD-D2 bifurcation Specimens: None Fluids Given: See Cloud Operations Engineer procedure log Urine Output: See Cloud Operations Engineer procedure log Estimated Blood Loss: 10 mL Drains: none Findings: Coronary anatomy- Left ventriculography- Hemodynamics- Complications: None Disposition: Postoperative Condition: stable The procedure was performed using moderate conscious sedation. The patient was monitored utilizing continuous pulse oximetry, continuous telemetry/bedside cardiac monitoring and intermittent blood pressure measurements throughout the procedure without notable aberration in vitals. Please see the patients procedure log for further information. procedure start 9:00 and end time 9:50 documented in this encounter Consult Notes Eduardo Wayne MD - 01/24/2021 3:43 PM CDTAssociated Order(s): CONSULT CARDIOLOGY Cardiology Inpatient Consult Note Name: Eddie Mario ROOM/BED: [facility] PCP: Garland Nieves MD Admission date: 01/23/2021 Reason for Consult: There is an apical thrombus measuring 13 mm x 15 mm in the left ventricle. Impression / Plan 1. Left ventricular apical thrombus 2. Multiple small acute infarct in the right midbrain 3. Nonsustained SVT with intermittent AV block and pauses This is a 85-year-old male with history of CAD with prior stent more than 10 years ago at [facility] [place], presented with left-sided weakness and some blurry vision. Initial laboratory studies showed troponin of 0.047. CBC was remarkable for leukocytosis 18.9 with hemoglobin of 9.4. Chemistry was notable for glucose of 236, creatinine of 1.37 otherwise normal electrolyte. Lipid study showed LDL of 52. EKG sinus shows sinus bradycardia without any acute ST changes. Echocardiogram showed EF of 55% with regional wall motion abnormalities and apical thrombus measuring 13 mm in the left ventricle, moderate aortic stenosis with mean gradient of 34 mmHg. Brain imaging showed multiple small acute infarct involving the right midbrain. Hospitalization course complicated by nonsustained SVTwith intermittent AV block and some pauses. He was evaluated by EP who recommended loop recorder atdischarge. We are consulted for the apical thrombus. Patient has no chest pain. He denies any dyspnea on exertion, palpitation or swelling in the lower extremities. No orthopnea or paroxysmal nocturnal dyspnea. He had mildly elevated troponin and now with apical left ventricular thrombus which is a potential reason for the stroke. He will need further ischemic work-up to evaluate his coronaries. In addition, he will need to be on anticoagulation. Plans: Left heart catheterization tomorrow Start Toprol-XL 25 mg daily Continue with Lipitor Keep patient on teacher education instructor electrolytes replace as needed NPO except meds after midnight --He will need anticoagulation Thank you for consulting us to participate in the care of this patient. Please call with questions Pt was seen and discussed with Dr Abdiel Wayne MD Internal Medicine Resident-[id number] Pager Number: [phone] 01/24/2021 History See above Medical / Surgical Past Medical History: Diagnosis Date CAD (coronary artery disease) PCI Diabetes (HCC) HTN (hypertension) No past surgical history on file. Medications Current Facility-Administered Medications Medication Dose Route Frequency Provider Last Rate Last Admin sodium chloride 0.9% flush (adult) 10 mL 10 mL IV 2 times a day and prn GaryAna Cristina Faria W, DO 10 mL at 09/13/21 0935 nalOXone (NARCAN) injection solution (vial) 0.4 mg 0.4 mg Injection Every 2 minutes prn Ana Cristina Friedman DO nalOXone (NARCAN) injection solution (vial) 0.2 mg 0.2 mg Injection Every 2 minutes prn Ana Cristina Friedman DO dextrose 50% IV solution 50 mL 25 g IV PRN per parameter Ana Cristina Friedman DO glucagon for injection 1 mg vial 1 mg 1 mg Intramuscular PRN per parameter Ana Cristina Friedman DO glucose chewable tablet 16 g 4 tablet Oral PRN per parameter Ana Cristina Friedman DO Or carbohydrate 15 g 15 g Oral PRN per parameter Ana Cristina Friedman DO sodium chloride 0.9% IV solution IV Continuous Ana Cristina Friedman DO 75 mL/hr at 01/24/21 0553 Already Infusing at 01/24/21 0553 acetaminophen (TYLENOL) tablet 650 mg 650 mg Oral Every 4 hours prn Ana Cristina Friedman DO melatonin tablet 3 mg 3 mg Oral Bedtime prn Ana Cristina Friedman DO senna-docusate sodium (SENOKOT-S;PERICOLACE) tablet 2 tablet 2 tablet Oral 2 times a day prn Ana Cristina Friedman DO And bisacodyl (DULCOLAX) suppository 10 mg 10 mg Rectal 1 time a day prn Ana Cristina Friedman DO And docusate sodium (THEREVAC-SB MINI;ENEMEEZ MINI) 283 MG enema 1 enema 1 enema Rectal 1 time a day prn Ana Cristina Friedman DO insulin aspart (NovoLOG) SQ correction scale (Adult) 2-8 Units Subcutaneous 3 times a day Ana Cristina Friedman DO 2 Units at 01/24/21 1218 atorvaSTATin (LIPITOR) tablet 40 mg 40 mg Oral at bedtime Ana Cristina Friedman DO 40 mg at 01/24/21 0600 aspirin chewable tablet 81 mg 81 mg Oral daily Ana Cristina Friedman DO metoprolol tartrate (LOPRESSOR) IV solution 5 mg 5 mg IV Every 5 minutes prn Ana Cristina Friedman DO cefTRIAXone (ROCEPHIN) 1000 mg/10 mL IV syringe in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 chewable tablet 81 mg 81 mg Oral daily Ana Cristnia Friedman DO 81 mg at 01/24/21 1741 metoprolol tartrate (LOPRESSOR) IV solution 5 mg 5 mg IV Every 5 minutes prn Ana Cristina Friedman DO cefTRIAXone (ROCEPHIN) 1000 mg/10 mL IV syringe in sterile water 1,000 mg IV Every 24 hours Ana Cristina Friedman DO 1,000 mg at 01/24/21 0934 hEParin (50 units/mL) in D5W premixed IV solution (SMF STANDARD ANTI-XA. Goal Range 0.3-0.7) 0-50 Units/kg/hr IV Titrate Asya Fernandez MD 30.1 mL/hr at 01/25/21 0712 23 Units/kg/hr at 01/25/21 0712 heparin (porcine) (5000 units/1 mL) IV PRN bolus order 2,300-4,600 Units 35-70 Units/kg IV PRN per parameter Asya Fernandez MD 4,600 Units at 01/24/21 2327 sodium chloride 0.9% flush (adult) 10 mL 10 mL IV 2 times a day and prn Aliza Rodriguez MD sodium chloride 0.9% IV solution IV Continuous Aliza Rodriguez MD 75 mL/hr at 01/24/21 175 Already Infusing at 01/24/21 175 fentaNYL 100 mcg/2 mL preservative free injection solution 25-300 mcg 25- 300 mcg IV PRN per parameter Aliza Rodriguez MD midazolam (VERSED) injection solution 0.5-10 mg 0.5-10 mg IV PRN per parameter Aliza Rodriguez MD nitroglycerin (100 mcg/mL) in NS 100-300 mcg Intra-arterial PRN per parameter Aliza Rodriguez MD nalOXone (NARCAN) injection solution (vial) 0.4 mg 0.4 mg Injection Every 2 minutes prn Aliza Rodriguez MD nalOXone (NARCAN) injection solution (vial) 0.2 mg 0.2 mg Injection Every 2 minutes prn Aliza Rodriguez MD ALPRAZolam (XANAX) tablet 0.25 mg 0.25 mg Oral Every 8 hours prn Aliza Rodriguez MD aspirin tablet 325 mg 325 mg Oral 1 time Aliza Rodriguez MD Or aspirin chewable tablet 243 mg 243 mg Oral 1 time Aliza Rodriguez MD Or aspirin chewable tablet 162 mg 162 mg Oral 1 time Aliza Rodriguez MD verapamil-hEParin in normal saline (radial cocktail) Intra-arterial Now Aliza Rodriguez MD lidocaine PF (XYLOCAINE-MPF) 1 % preservative free injection solution 2 mL 2 mL Subcutaneous 1 time Aliza Rodriguez MD iohexol (OMNIPAQUE) 350 mg/mL solution 0-300 mL 0-300 mL Intra-arterial 1 time Aliza Rodriguez MD metoprolol succinate (TOPROL XL) SR tablet (24 hr) 25 mg 25 mg Oral Daily Aliza Rodriguez MD sodium chloride 0.9% flush (adult) 10 mL 10 mL IV 2 times a day and prn Sohan Diaz MD ondansetron (ZOFRAN) injection solution 4 mg 4 mg IV Every 4 hours prn Ana Cristina Friedman W, DO metoclopramide (REGLAN) inj soln 5 mg 5 mg IV Every 8 hours prn Ana Cristina Friedman W, DO acetaminophen (TYLENOL) tablet 650 mg 650 mg Oral Every 6 hours prn Ana Cristina Friedman W, DO Or acetaminophen (TYLENOL) suppository 650 mg 650 mg Rectal Every 6 hours prn Ana Cristina Friedman W, DO labetalol (NORMODYNE;TRANDATE) IV solution 10-40 mg 10-40 mg IV Every 15 minutes prn Ana Cristina Friedman W, DO Review of Systems: Review of Systems Constitutional: Negative for fever. HENT: Negative for trouble swallowing. Eyes: Positive for visual disturbance. Respiratory: Negative for shortness of breath. Cardiovascular: Negative for chest pain. Gastrointestinal: Negative for nausea. Musculoskeletal: Negative for gait problem. Neurological: Positive for dizziness, weakness and light-headedness. Psychiatric/Behavioral: Negative for confusion. Physical Exam Current Vital Signs Temp: 100.2 F (37.9 C) BP: 147/66 Pulse: 67 O2 Device: Room Air Resp: 98 Pain Ratin (out of 10) Weight: 67.3 kg (148 lb 5.9 oz) SpO2: 92 % Gen: alert, cooperative, appears stated age HENT/N: Normocephalic, Atraumatic, Mucus Membranes Moist, No notable conjunctival injection or jaundice Heart: Regular rate Lungs: regular rate, no distress Extremities: No cyanosis, clubbing or edema Musculoskeletal: Full passive range of motion, normal alignment, no joint tenderness Skin: The areas of skin able to be visualized at time of exam demonstrate no rash or abnormalities Neurologic Examination- He is awake, alert and oriented to their name, being in a hospital and able to identify correct month and year SPEECH: Fluent and without dysarthria (normal) COMPREHENSION: comprehension is Intact, he is able to complete 3 step commands NAMING: He is able to identify a Glove, [place], [place], Feather, Chair and Hammock but is unable to identify Nothing; During NIHSS testing and no appreciable language deficits are present and in general conversation and no appreciable language deficits are present REPETITION: He can appropriately repeat full sentences Eddie Mario is able to provide details of his own history. CRANIAL NERVES I: not assessed II: Visual roberts normal, good gross visual acuity III, IV, : MAE, EOM Normal V: Sensation of V1-V3 intact bilaterally to LT VII: normal facial symmetry and strength VIII: Hearing grossly normal bilaterally to voice MOTOR EXAMINATION: Tone: normal Bulk: no atrophy Tremors: None SA EE EF WE WF Agent Telegrapher HF KE KF DF PF Right 5 5 5 5 5 5 5 5 5 5 5 Left 5 5 5 5 5 5 5 5 5 5 5 Pronator drift is Absent on the bilateral SENSORY EXAM: Light touch sensation are intact throughout Additional Sensory Testing: Extinction or inattention: Absent CEREBELLAR EXAM: Finger to nose is accurate testing the left upper extremity and right upper extremity and Lower extremity movement is accurate testing the left lower extremity and right lower extremity Gait & Stance: Deferred DIAGNOSTIC RESULTS/PROCEDURES: Imaging/Radiologic Studies: MRI Brain (01/24/2021): Images reviewed personally, radiology report as below 1. 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 2. Generalized atrophy and moderate chronic ischemic white matter disease. 3. Dr. Sumner was notified of results by phone at 1:00 AM. MRI Angiogram Brain and Angiogram Neck (01/24/2021): Images reviewed personally, radiology report asbelow -No high-grade stenosis or occlusive disease within the major arterial vasculature. 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 Neurovascular interventional follow-uprecommended. Procedures: Transthoracic Echocardiogram (01/24/2021): Report reviewed as below Left Ventricle: Normal left ventricular systolic function. The apical anterior and apical lateral wall segments are hypokinetic. The wall segments are akinetic. There is an apical thrombus measuring 13 mm x 15 mm in the left ventricle. Recommendations: The ordering physician was notified of these results EKG (01/24/2021): Report reviewed as below Sinus bradycardia Left axis deviation Minimal voltage criteria for LVH, may be normal variant ( [place] product ) Poor R-Wave Progression Abnormal ECG No previous ECGs available Ventricular Rate: 57 BPM Atrial Rate: 57 BPM P-R Interval: 164 ms QRS Duration: 86 ms Q-T Interval: 378 ms QTc Calculation(Bazett): 367 ms Calculated P Temple: 83 degrees Calculated R Temple: -33 degrees Calculated T Temple: 84 degrees Labs Last CBC: Lab Results Component Value Date WBC 14.0 (H) 01/25/2021 NUCRBC 0 01/25/2021 RBC 3.20 (L) 01/25/2021 HEMOGLOBIN 9.1 (L) 01/25/2021 HEMATOCRIT 28.5 (L) 01/25/2021 MCV 89.1 01/25/2021 MCH 28.4 01/25/2021 MCHC 31.9 01/25/2021 PLTCOUNT 226 01/25/2021 NEUTROPCT 84.1 01/25/2021 LYMPHSPCT 6.2 01/25/2021 MONOSPCT 6.7 01/25/2021 EOSPCT 1.6 01/25/2021 BASOPHILPCT 0.4 01/25/2021 Last Chemistry: Lab Results Component Value Date GLUCOSE 182 (H) 01/25/2021 BUN 25 (H) 01/25/2021 CREATSERUM 1.15 01/25/2021 BCRATIO 21.7 01/25/2021 NA 140 01/25/2021 POTASSIUM 4.1 01/25/2021 CL 109 01/25/2021 CO2 22 01/25/2021 CA 8.5 01/25/2021 EGFR 60 01/25/2021 EGFRAF 73 01/25/2021 Last Coags: No results found for: INR, PT No results found for: APTT Last LFTs and Pacreatic Enzymes: No results found for: ALBUMIN, ALKPHOS, BILIDIRECT, BILIINDIRECT, BILITOTAL, AST, ALT, PROTEINTOTAL Last Diabetic & Lipid Studies: No results found for: HGBA1C Lab Results Component Value Date CHOLESTEROL 93 (L) 01/24/2021 HDLCHOL 17 (L) 01/24/2021 LDL 52 01/24/2021 TRIGLYCERIDE 119 01/24/2021 Inflammatory Markers: No results found for: ESR No results found for: CRPHS, CRP Last Test: No results found for: BETAHCGSCR, PREGURINE, BETAHCGQNT Medical Decision Making 01/24/2021, I have personally spent 50 min, rounded down for time based billing, (IP code [id number]) providing patient care for Eddie Mario inclusive of time spent in reviewing the chart (all relevantlaboratory studies and imaging studies independently reviewed), examining Eddie Mario, completing orders and charting and counseling Eddie Mario / Eddie Mario's family, including discussing test results and treatment plan with them. Greater than 50% of this visit was spent in lbdx-lc-vawd counseling with Eddie Mario / Eddie Mario's family and providing coordination of care as documented. Abdifatah Mancia MD [facility] Department of Neurology / Vascular Neurology Pager #[phone] documented in this encounter Miscellaneous Notes Case Mgmt - Radha Stewart RN - 01/31/2021 2:30 PM CDT CASE MANAGEMENT / SOCIAL SERVICE FINAL TRANSITION PLAN TRANSITION DATE: 01/31 TRANSITION TIME: PER FLOOR INTENDED PAYER SOURCE FOR AGENCY: Medicare TRANSITION DESTINATION: Home Bedside nurse to complete routine discharge along with discharge paperwork and education. Family to provide transport to home. DOES ACCEPTING FACILITY REQUIRE COVID TESTING BEFORE DISCHARGE: N/A TRANSITION TRANSPORTATION: Family Car TRANSPORTATION PAYMENT: Not applicable TRANSITION CHOICES OFFERED: Home: Family/Friend Support DOES THE PATIENT HAVE A PRIMARY CARE PHYSICIAN? Yes Garland Nieves MD PATIENT / SUBSTITUTE DECISION MAKER GOAL UPON TRANSITION: First Choice: Home: Family/Friend Support RESOURCE(S) PROVIDED: nothing needed at this time DOES PATIENT HAVE CLOTHING TO WEAR AT DISCHARGE? Yes ANTICIPATED MODE OF TRANSPORT TO AND FROM FOLLOW UP APPOINTMENTS: Family Car VERIFIED CORRECT PHARMACY IS ENTERED FOR DISCHARGE: Yes - Pharmacy: . [id number] [place] [address] [place] [address] METHOD OF PRESCRIBING MEDICATIONS: Medications to be E-prescribed to above pharmacy TRANSITION ROUNDING COMPLETED WITH THE FOLLOWING: Patient / family Psychiatric Aide COMMENTS / PATIENT AND FAMILY RESPONSE TO PLAN: Patient denies concerns for CM. Not needed HH at this time. CM available if d/c needs arise. CURRENT READMISSION RISK SCORE / HANDOFF: Predictive Risk Score Risk of Unplanned Readmission: 11.7 Handoff given: N/A SIGNED: Radha Stewart RN BSN Case Management - 6AB Rt: [id number] are Planning - Celia Escalante RN - 01/31/2021 2:25 PM CDT Problem: RISK FOR INEFFECTIVE CEREBRAL PERFUSION Goal: NEUROLOGICAL STATUS Description: DEFINITION: Ability of the peripheral and central nervous systems to receive, process, and respond to internal and external stimuli. 1=Severely compromised, 2=Substantially compromised, 3=Moderately compromised, 4=Mildly compromised, 5=Not compromised. Outcome: NOC Rating 3 Flowsheets (Taken 01/31/2021 1423) Initial Score: 4 Target Score: 5 Plan of care reviewed with: Patient Spouse/Significant Other Patient specific goal for the day: No neuro decline. Patient specific goal for the stay: Return to baseline function, go home today. Achieve goal for stay: By discharge Patient Progress: Pt alert/oriented x4, denies n/t, pain. VSS, afebrile. Telemetry shows SB, asymptomatic. Pt up self, steady gait. NIHSS 0. Continue with POC, monitor, assess and support pt. Note: IS 4 TS 5 [facility]di[facility] Rehab - Chantal Macias EP - 01/31/2021 11:08 AM CDT Cardiac Rehab Phase 1 Inpatient Note: Diagnosis: Stent Physical Activity Completed: Ambulate in [place] Distance Ambulated: 270 feet Ambulation Assistance: independent Patient response to Exercise: good Exercise Comments: Asymptomatic. Gaitbelt used with activity Vitals Exercise Heart Rate - 78 bpm O2 Device - RA Exercise SpO2 - >90% Assessment/Plan: Tolerates activity well. Encouraged patient to ambulate in hallway 3-4 times daily as tolerated with gradual progression. -Progress as tolerated -Patient referred to outpatient Cardiac Rehab program -Continue to follow until until Discharge -Home activity and exercise teaching completed Recommendation: "Outpatient Cardiac Rehab Continue Inpatient Cardiac Rehab Plan of Care daily until discharge. Cardiac Rehab [facility] Pager: [phone] hysical Therapy - Monica Desai PT - 01/31/2021 9:52 AM CDT Physical Therapy Acute Inpatient Treatment Note ASSESSMENT/RECOMMENDATIONS Patient is doing extremely well with strength, balance, and overall mobility. He is independent with bed mobility, transfers, ambulation without AD, and stairs. Recommend home at discharge with no further needs for PT. 6-Clicks Basic Mobility Score: 24 Activity Prescription with Nursing: With assist of 1, walk in [place] 3 times per day. At a minimum, up to chair for all meals or 3 times per day. SUBJECTIVE Agreeable to PT. States he is unsure of when he will be discharging. OBJECTIVE Bed Mobility: Independent Transfers: Sit to/from stand independent Gait: Ambulated 300' independently without AD. No imbalance or impairments noted. Stairs: Ascended/descended 4 stairs modified independently with single railing. Dynamic Gait Index: 23/24, which indicates a fall risk (0-19), low fall risk (20-24). Other: Left sitting up at edge of bed with call light within reach. Interdisciplinary Communication: Spoke with interdisciplinary team members regarding patient plan ofcare. PLAN Decrease to 1x/wk. Today's Treatment: Gait Trainin minutes Therapeutic Exercise: 0 minutes Therapeutic Activity: 15 minutes TOTAL TIMED CODES: 15 minutes TREATMENT TOTAL TIME: 15 minutes Monica Desai PT, DPT Board-Certified Clinical Specialist in Geriatric Physical Therapy Certified Exercise Expert for Aging Adults Alpha Pager [phone] are Planning - Valerie Fernandez RN - 01/31/2021 2:47 AM CDT Problem: RISK FOR INEFFECTIVE CEREBRAL PERFUSION Goal: NEUROLOGICAL STATUS Description: DEFINITION: Ability of the peripheral and central nervous systems to receive, process, and respond to internal and external stimuli. 1=Severely compromised, 2=Substantially compromised, 3=Moderately compromised, 4=Mildly compromised, 5=Not compromised. Outcome: NOC Rating 5 Flowsheets (Taken 01/31/2021 0246) Plan of care reviewed with: Patient Patient specific goal for the day: To have no acute neuro decline. Patient specific goal for the stay: To return to baseline. Achieve goal for stay: By discharge Patient Progress: AOx4. no acute changes AOx4. No acute changes. Anti Xa therapeutic, hep gtt continues to run @ 25.3 u/kg/hr. Care Planning - Whit Mota RN - 01/30/2021 10:30 PM CDT Problem: RISK FOR INEFFECTIVE CEREBRAL PERFUSION Goal: NEUROLOGICAL STATUS Description: DEFINITION: Ability of the peripheral and central nervous systems to receive, process, and respond to internal and external stimuli. 1=Severely compromised, 2=Substantially compromised, 3=Moderately compromised, 4=Mildly compromised, 5=Not compromised. Outcome: NOC Rating 3 Flowsheets (Taken 01/30/2021 2228) Initial Score: 3 Target Score: 4 Plan of care reviewed with: Patient Patient specific goal for the day: To have no acute neuro decline. Patient specific goal for the stay: To return to baseline. Achieve goal for stay: By discharge Patient Progress: At 1500, pt had 9 runs of PVCs with HR 115, asymptomatic. Pt ambulated in [place] today with family. Will continue to monitor. Clinical Team - Jennyfer Perez RN - 01/30/2021 1:00 PM CDT Pt's family here, pt and family asking about coumadin-heparin bridge and how long it will take untilable to discharge home. Requested Pharmacist come see them for education. Cristina [facility] for 6AB in to talk to them. Valerie Looney RN - 01/30/2021 3:12 AM CDT Problem: RISK FOR INEFFECTIVE CEREBRAL PERFUSION Goal: NEUROLOGICAL STATUS Description: DEFINITION: Ability of the peripheral and central nervous systems to receive, process, and respond to internal and external stimuli. 1=Severely compromised, 2=Substantially compromised, 3=Moderately compromised, 4=Mildly compromised, 5=Not compromised. Outcome: NOC Rating 4 Flowsheets (Taken 01/30/2021311) Plan of care reviewed with: Patient Patient specific goal for the day: Pt will have no acute neuro changes this shift. Patient specific goal for the stay: Pt will return to baseline Achieve goal for stay: By discharge Patient Progress: A&Ox4.NIH 0. neuros unchanged. AOx4. Neuros unchanged. NIH 0. VSS, SBP <180, no PRNs needed. Tele still irregular and bradycardic for most the shift. Heparin anti Xas have been therapeutic. Independent. L PIV w/ hep running @ 25.3u/kg/hr. next anti Xa at 7am Whit Woodruff RN - 01/29/2021 10:17 PM CDT Problem: RISK FOR INJURY Goal: POST-PROCEDURE RECOVERY Description: DEFINITION: Extent to which an individual returns to baseline function following a procedure or minor surgery requiring anesthesia or sedation. 1=Severe deviation from normal range, 2=Substantial deviation from normal range, 3=Moderate deviation from normal range, 4=Mild deviation from n ormal range, 5=No deviation from normal range Outcome: NOC Rating 3 Flowsheets (Taken 01/29/2021 7169) Initial Score: 3 Target Score: 4 Plan of care reviewed with: Patient Patient specific goal for the day: To get sleep. Patient specific goal for the stay: To return to baseline. Achieve goal for stay: By discharge Patient Progress: Pt AOx4, on continous heparin drip with therapeutic levels. Parameters to keep SBPless than 180. Will continue to monitor. Cardiac Rehab - Chelsey Lewis EP - 01/29/2021 8:17 AM CDT Cardiac Rehab Phase 1 Inpatient Note: Diagnosis: Stent x1 Physical Activity Completed: Ambulate in [place] Distance Ambulated: 270 feet Ambulation Assistance: SBA Patient response to Exercise: good Exercise Comments: Steady gait w/ FWW. Asymptomatic. Gaitbelt used with activity Vitals Resting Heart Rate - 80 bpm O2 Device - RA Resting SpO2 - 93% Assessment/Plan: Tolerates activity well. Encouraged patient to ambulate in hallway 3-4 times daily as tolerated with gradual progression. -Progress as tolerated -Patient referred to outpatient Cardiac Rehab program -Continue to follow until until Discharge -Home activity and exercise teaching completed Recommendation: "Outpatient Cardiac Rehab-[place] Continue Inpatient Cardiac Rehab Plan of Care daily until discharge. Cardiac Rehab [facility] Pager: [phone] linical Team - Valerie Fernandez RN - 01/29/2021 4:33 AM CDT Provider notified for SBP >150 after two doses of hydralazine. Ok to monitor for now per provider. are Planning - Valerie Fernandez RN - 01/29/2021 3:40 AM CDT Problem: RISK FOR INEFFECTIVE CEREBRAL PERFUSION Goal: NEUROLOGICAL STATUS Description: DEFINITION: Ability of the peripheral and central nervous systems to receive, process, and respond to internal and external stimuli. 1=Severely compromised, 2=Substantially compromised, 3=Moderately compromised, 4=Mildly compromised, 5=Not compromised. Outcome: NOC Rating 4 Flowsheets (Taken 01/29/2021 0340) Plan of care reviewed with: Patient Patient specific goal for the day: Pt will have no acute neuro changes this shift. Patient specific goal for the stay: Pt will return to baseline Achieve goal for stay: By discharge Patient Progress: A&Ox4.NIH 0. neuros unchanged. AOx4. Neuros unchanged, NIH of 0. Independent in room. Hep gtt running @ 25.3 u/kg/hr. Next antiXa at 0630. SBP goal <150. Hydralazine given overnight. Tele running SR-ST. linical Team - Neetu Cornejo RN - 01/28/2021 6:38 PM CDT Pt is alert and oriented x 4. C/o 2/10 headache and prn Tylenol administered with relief. NIHSS at"0" and neuro checks wdl. Heparin drip increased to 25.3 units/kg/hr and a bolus of 4600 units administered. Heparin Xa due at 0020 on 01/29/2021. Tele in SB at 50's with frequent PACs. ardiac Rehab - Melissa Desai EP - 01/28/2021 4:14 PM CDT Cardiac Rehab Phase 1 Inpatient Note: Diagnosis: stent Physical Activity Completed: Ambulate in [place] Distance Ambulated: 275 feet Ambulation Assistance: SBA with FWW Patient response to Exercise: good Exercise Comments: Steady gait. No complaints. Gaitbelt used with activity Assessment/Plan: Tolerates activity well. Encouraged patient to ambulate in hallway 3-4 times daily as tolerated with gradual progression. -Progress as tolerated -Patient referred to outpatient Cardiac Rehab program -Continue to follow until until Discharge -Home activity and exercise teaching completed Recommendation: "Outpatient Cardiac Rehab Continue Inpatient Cardiac Rehab Plan of Care daily until discharge. Cardiac Rehab Alpha Pager: [phone] are Planning - Irais Da Silva RN - 01/28/2021 2:14 PM CDT Problem: RISK FOR INEFFECTIVE CEREBRAL PERFUSION Goal: NEUROLOGICAL STATUS Description: DEFINITION: Ability of the peripheral and central nervous systems to receive, process, and respond to internal and external stimuli. 1=Severely compromised, 2=Substantially compromised, 3=Moderately compromised, 4=Mildly compromised, 5=Not compromised. Outcome: NOC Rating 4 Flowsheets (Taken 01/28/2021 1413) Initial Score: 4 Target Score: 5 Plan of care reviewed with: Patient Patient specific goal for the day: Pt will have no acute neuro changes this shift. Patient specific goal for the stay: Pt will return to baseline Achieve goal for stay: By discharge Note: Pt A&Ox4, SBP >150. PRN Hydralazine given x1. Denies any chest pain or SOB. Tele in place-NSR Other VSS, on RA. Loop recorder in place, bandaid intact. No acute neuro changes this shift. Last NIH 0. PIV to L) infusing heparin gtt @ 21 u/kg/hr. Next anti-Xa @ 1740. Hematoma noted to R) arm. Denies any pain. HH diet, appetite fair. Denies any nausea. Accuchecks QID. Transfers SBA with ABBY, FWW. Gait steady. Voiding adequately. LBM 01/27. All needs met, rounding completed. Call light and table within reach. Will cont to monitor. 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 # Nonsustained SVT # Nonsustained VT # CAD s/p LAD PCI # Type 2 diabetes # Hypertension # UTI # Anemia PMH: CAD, T2DM, HTN, CKD Recommendations/Plan: Adequate oral intake Malnutrition Summary Malnutrition Assessment Date: 01/24/21 Moderate (non-severe) protein calorie malnutrition Malnutrition Characteristics in the Context of Chronic Illness (greater than 3 months): Energy Intake: Less than or equal to 75% intake of estimated energy needs for greater than or equal to 1 month Subcutaneous Fat Loss: Moderate Muscle Loss: Moderate Interventions: Monitor oral intake/advance diet as tolerated;Supplement diet with ONS (oral nutrition supplements)/nutrient dense foods NUTRITION ASSESSMENT Intake has improved and is meeting estimated kcal / protein needs. Patient and family without nutrition concerns att. Anthropometrics: Height: 170.2 cm (5' 7") Admission Weight: Weight: 65.5 kg (144 lb 6.4 oz) as of 01/23/2021 per bed scale Most Recent Weight: Weight: 67.3 kg (148 lb 5.9 oz) (01/25/21 0606) per unknown source Lowest Wt Since Admission: 65.5 kg Wt Change Since Admission: (+) 1.8 kg BMI: Body mass index is 23.24 kg/m. IBW: 67 kg %IBW: 98% (based on admit weight) Usual Body Weight: ~160 lbs and is now closer to 145 lbs per pt. Per Care Everywhere, 151 lbs on 07/21/2020, Unintentional Weight Loss: Patient reports loss from~160 lbs to 145 lbs in the past month. Unableto confirm with limited weight hx on file. Estimated Needs: 8578-9290 kcal/day (26-27 kcal/kg Using: Admission Weight) 70-75 gm protein (1.1 gm/kg Using: Admission Weight) Estimated average intake: 01/23: met 100% kcal / protein needs 01/24: met 50% kcal / protein needs 01/25: met 30% kcal / protein needs 01/24-: met 100% kcal / protein needs Intake Records: Intake Prior to Admit: Less than 75% of estimated energy requirements for greater than or equal to 1 month per patient report. He reports decreased appetite and intake the previous month, but then states "it's been a long time". States he typically consumes 2 meals daily, what he eats changes daily. Didn't report how much less he was eating or specifics as to what he was consuming. Current Intake: Adequate Nutrition (From admission, onward) Start Ordered 01/27/211844 Diet - Heart Healthy Now Question: Modified Diets Answer: Heart Healthy 01/27/21 1844 01/24/21 1410 SNACKS Once info Comments: PM: chocolate pudding 01/24/21 1409 Physical Assessment: Edema: none documented GI Assessment: WDL per electronic systems security assessment at 0746 Stool Frequency: LBM documented on 01/25 Wounds/Pressure Points: WDL per electronic systems security assessment at 0746 Functional Status: A&Ox4, NIHSS 0 per electronic systems security assessment at 0800 Nutrition Focused Physical Exam: Completed by RD on 01/24 Below the Eye (fat): Slightly dark circles, somewhat hollow look (mild-moderate) (moderate) Worship (muscle): Slight depression (mild-moderate) (moderate) Buccal (fat): Flat cheeks (moderate) Clavicle (muscle): Some protrusion of bone (mild-moderate) (moderate-severe) Shoulder (muscle)/Deltoid muscle: Acromion process slightly protrudes (mild- moderate) (moderate) Triceps/Biceps (fat): Some depth to pinch, but not ample (mild-moderate) (moderate) Hand/Interosseous (muscle): Slightly depressed (mild-moderate) (moderate) Thigh (muscle): Mild depression on inner thigh (mild-moderate) (moderate-severe) Calf (muscle): Not well developed (mild-moderate) Nutritionally-Relevant Medications, Vitamins and Minerals: warfarin, Lipitor, Novolog Nutritionally-Relevant Biochemical Data: 01/28/2021 03:57 Glucose 183 (H) Sodium 141 Potassium 4.1 BUN 17 Creatinine 1.27 eGFR 54 (L) Allergies/Food Intolerance: Eddie has No Known Allergies. Culturally Taoism Needs: NA INTERVENTIONS Reviewed adequacy of intake Continued PM snack Added Diabetic diet feature MONITORING/EVALUATION I&O, weight, nutrition-related labs and medications, clinical status, and plan of care Nutrition Therapy will reassess every 1-4 days Case Mgmt - Radha Stewart RN - 01/28/2021 11:27 AM CDT CASE MANAGEMENT / SOCIAL SERVICE TRANSITION PLAN - PROGRESS NOTE PLAN: Awaiting Medical Doctor Recommendations for Transition Will Continue to Follow for Support and Progression Towards Final Transition Plan BARRIERS TO TRANSITION: Awaiting Collateral Information Discharge Needs to be Determined Medical barriers:. Tele, cardiology following, medication adjustments - monitoring, PT/OT following DOES ACCEPTING FACILITY REQUIRE COVID TESTING BEFORE DISCHARGE: N/A COMMENTS / PATIENT AND FAMILY RESPONSE TO PLAN: Chart reviewed.No concerns for CM. Per therapies, patient is safe to return home. Cardiac rehab following, plan for referral on d/c. Patient declines need for home health therapies. He will return home with and has a ride availablewhen needed. CM to follow and assist with safe discharge planning. IS PATIENT'S ADMISSION ASSOCIATED WITH TIA, ISCHEMIC, OR HEMORRHAGIC STROKE?: No PATIENT / SUBSTITUTE DECISION MAKER GOAL UPON TRANSITION: First Choice: Home: Family/Friend Support ANTICIPATED NEEDS UPON TRANSITION: Home: Family/Friend Support Outpatient Therapy: Occupational Therapy and Physical Therapy RESOURCE(S) PROVIDED: Home Health VERIFIED CORRECT PHARMACY IS ENTERED FOR DISCHARGE: Yes - Pharmacy: . [id number] [place] [address] [place] [address] TRANSITION ROUNDING COMPLETED WITH THE FOLLOWING: Patient / family Psychiatric Aide Attending MD SIGNED: Radha Stewart RN BSN Case Management - 6AB Rt: [phone] Occupational Therapy - Donita Vásquez OTR/Alan - 01/28/2021 10:04 AM CDT Occupational Therapy Acute Care Progress Note/Discharge Impression/Recommendations Recommending patient return home with OP OT and 04/12 supervision from spouse upon medical stability to further address cognition/safety with ADL/IADLs. Also recommend no driving and assistance with IADLs (medications, finances, cooking) until further cognitive assessment from OP OT, as pt scored 15/30on MOCA indicating a moderate cognitive impairment. Pt presenting with impairments including decreased functional cognition. Pt demonstrating ability to complete ADLs with SBA using AE in previous session. Pt educated and provided with UE HEP and theraband, reviewed above recommendations. No further skilled OT needed at this time, will discharge. Objective Diagnosis: ICD-10-CM 1. Stented coronary artery Z95.5 CARDIAC REHAB PHASE II CARDIAC REHAB PHASE II Precautions: Standard precautions Infection Control: Standard Precautions Cognition: Pt is alert. Oriented to: Person, place, time, situation. MOCA completed 01/27, score 15/30; which is moderate cognitive impairment. U/E: Strength B U/E WNL. Slight decreased coordination with rapid alternating hands on L side. Increased processing time needed for finger to nose R/L. Veronique sensation difficulty. ADLs: Feeding: independent Grooming: SBA/independent standing at sink to wash/dry hands Toileting SBA/Independent Bathing: Discussed using shower stool as needed for increased safety due to impulsivity noted in previous session Dressing: Independent starr/doff socks, educated to initiate all dressing from seated position for increased safety Transfers: Bed: independent Chair: SBA/independent Toilet: SBA/independent Patient ambulated to/from bed, toilet, sink, around room then safely back to chair with SBA, no ambulation device, no LOB. At end of session: patient resting in chair, call light and tray table within reach, education provided on use call light and waiting for assistance prior to transferring and family at bedside Pain: Pain at rest: 0/10 Pain during activity: 0/10 Location: N/A Vitals: Pt on room air without signs of shortness of breath during OT. SpO2 at rest >90 %, SpO2 with activity >90% Interdisciplinary Communication: Family, RN Irais Education Education/Training provided: Role of OT, plan of care, ADLs, transfers/mobility, safety, AE needs,d/c recommendations, cognition, driving, IADLs Learners: Patient and family Readiness: accepting Method of Training: verbal Response: Verbalizes understanding; Will benefit from continued reinforcement: yes Adaptive Equipment Recommendations Adaptive Equipment Recommended: Shower stool and Non skid bath mat (previous session, recommendation continues) Adaptive Equipment Available: None Plan to obtain adaptive equipment: Patient and/or family to obtain recommended ADL equipment. Adaptive equipment recommendations/handouts provided. (continues) Goals Patient/Family Stated Goal for Session: agreeable to therapy, eat breakfast Short Term Goals: Patient will complete LB dressing safely withSBAusing adaptive equipment as needed. (met) Patient will complete toileting safely withSBAusing adaptive equipment as needed. (met) Patient will complete functional transfers safely withSBAusing adaptive equipment as needed. (met) Patient will further participate with cognitive assessment to increase safety with functional tasks.(met) Patient will have AE in place to increase safety with ADLs by discharge (goal addressed) New goal 01/26/21 Patient will be independent in UE HEP to increase functional outcome prior to discharge. (met 01/27) Patient continues to demonstrate progress towards OT goals: Yes Charges Treatment/Minutes: Today's Evaluation/Treatment Self Care: 25 minutes Total Treatment Time: 25 minutes Treatment Session 08/16 Weekly Assessment/Plan (Day 5): Cont POC Therapist [facility] Pager Number [phone] Valerie Looney RN - 01/28/2021 1:59 AM CDT Problem: RISK FOR INEFFECTIVE CEREBRAL PERFUSION Goal: NEUROLOGICAL STATUS Description: DEFINITION: Ability of the peripheral and central nervous systems to receive, process, and respond to internal and external stimuli. 1=Severely compromised, 2=Substantially compromised, 3=Moderately compromised, 4=Mildly compromised, 5=Not compromised. Outcome: NOC Rating 4 Flowsheets (Taken 01/28/2021 6184) Plan of care reviewed with: Patient Patient specific goal for the day: Pt will have no acute neuro changes this shift. Patient specific goal for the stay: Pt will return to baseline Achieve goal for stay: By discharge Patient Progress: A&Ox4.NIH 0. neuros unchanged. AOx4. NIH 0, neuros unchanged. Up independently. Tele shows SB to SVT at times when up in room. Hydralazine given for BP>150. L PIV infusing heparin gtt @21.3u/kg/hr. next aptt @ 11a. ACHS accuchecks. Loop recorder to L chest. Irais Patel RN - 01/27/2021 6:27 PM CDT Problem: RISK FOR INEFFECTIVE CEREBRAL PERFUSION Goal: NEUROLOGICAL STATUS Description: DEFINITION: Ability of the peripheral and central nervous systems to receive, process, and respond to internal and external stimuli. 1=Severely compromised, 2=Substantially compromised, 3=Moderately compromised, 4=Mildly compromised, 5=Not compromised. Outcome: NOC Rating 4 Flowsheets (Taken 01/27/2021 7883) Initial Score: 4 Target Score: 5 Plan of care reviewed with: Patient Patient specific goal for the day: Pt will have no acute neuro changes this shift. Patient specific goal for the stay: Pt will return to baseline Achieve goal for stay: By discharge Note: Pt A&Ox4, BP was elevated, no PRN needed. Metoprolol and Losartan added this AM. Other VSS, on RA. PRN Tylenol given for headache. No acute neuro changes this shift. Last NIH 0. PIV to L) infusing heparin gtt @ 26 u/kg/hr. Next anti-Xa @ 2049. Hematoma noted to R) arm. Denies any pain. HH diet, appetite fair. Denies any nausea. Accuchecks QID. Transfers SBA with GB, FWW. Gait steady. Voiding adequately. LBM 01/27. CT completed. See report. Loop recorder placement this shift. Bandaid C/D/I. Tolerated well. All needs met, rounding completed. Call light and table within reach. Will cont to monitor. linical Team - Amadou Corea CHAPLAIN - 01/27/2021 12:00 PM CDT Patient received Orthodoxy communion from a [employer] Stogie Packer. Spiritual care team is available PRN. Please page #[phone] for spiritual care team support. ase Mgmt - Radha Stewart RN - 01/27/2021 11:36 AM CDT CASE MANAGEMENT / SOCIAL SERVICE TRANSITION PLAN - PROGRESS NOTE PLAN: Awaiting Medical Doctor Recommendations for Transition Will Continue to Follow for Support and Progression Towards Final Transition Plan BARRIERS TO TRANSITION: Awaiting Collateral Information Discharge Needs to be Determined Medical barriers:. Tele, cardiology following, ?loop today, medication adjustments - monitoring, PT/OT following DOES ACCEPTING FACILITY REQUIRE COVID TESTING BEFORE DISCHARGE: N/A COMMENTS / PATIENT AND FAMILY RESPONSE TO PLAN: Chart reviewed.No concerns for CM. Planning for loop today. Per therapies, patient is safe to return home. Cardiac rehab following, plan for referral on d/c. Patient declines need for home health therapies. He will return home with and has a ride availablewhen needed. CM to follow and assist with safe discharge planning. IS PATIENT'S ADMISSION ASSOCIATED WITH TIA, ISCHEMIC, OR HEMORRHAGIC STROKE?: No PATIENT / SUBSTITUTE DECISION MAKER GOAL UPON TRANSITION: First Choice: Home: Family/Friend Support ANTICIPATED NEEDS UPON TRANSITION: Home: Family/Friend Support Outpatient Therapy: Occupational Therapy and Physical Therapy RESOURCE(S) PROVIDED: Home Health VERIFIED CORRECT PHARMACY IS ENTERED FOR DISCHARGE: Yes - Pharmacy: . [id number] [place] [facility] [place] [address] TRANSITION ROUNDING COMPLETED WITH THE FOLLOWING: Patient / family Psychiatric Aide Attending MD SIGNED: Radha Stewart RN BSN Case Management - 6AB Rt: [phone] Occupational Therapy - Samaria Fam OTR/Alan - 01/27/2021 11:30 AM CDT Occupational Therapy Acute Care Progress Note Impression/Recommendations Recommending patient return home with OP OT and 04/12 supervision from spouse upon medical stability. Also recommend no driving and assistance with IADLs (medications, finances, cooking) until further cognitive assessment from OP OT, as pt scored 15/30 on MOCA indicating a moderate cognitive impairment. Pt presenting with impairments including decreased strength/endurance and decreased functional cognition. Pt demonstrating ability to complete ADLs with SBA using AE in previous session. Pt educated and provided with UE HEP and theraband, as well as completed cognitive screen this date Pt to continue to benefit from skilled OT in order to address the above deficits to increase functional independence in ADLs, IADLs, and transfers/mobility. Objective Diagnosis: ICD-10-CM 1. Stented coronary artery Z95.5 CARDIAC REHAB PHASE II CARDIAC REHAB PHASE II Precautions: Standard precautions Infection Control: Standard Precautions Cognition: Pt is alert. Oriented to: Person, place, time, situation. Pt required maximum cueing andrepeated prompts during education of UE HEP due to impulsivity, impaired attention, and decreased direction following. [place] Cognitive Assessment (MoCA) Category Score Version 8.1 Visual-Spatial / Executive 2/5 Naming 3/3 Memory Trial not scored Attention Digits Letters Serial 1/2 0/1 1/3 Language Repeat Fluency 0/2 0/1 Abstraction 2/2 Delayed Recall 0/5 Orientation 5/6 Does patient have less than or equal to 12 years of education? Yes Total 15/30 Score of 26 or greater indicates cognitive function within normal limits. Score below 26 is indicative of cognitive impairment. 18-25: Mild Cognitive Impairment 10-17: Moderate Cognitive Impairment Less than 10: Significant Cognitive Impairment Memory Index Score (15) Category Score Recall with No Cue 0 Category Cue 2 Multiple Choice Cue 2 MIS Total Score 4 Further assessment recommended for: Driving, home supervision, IADLs The purpose of the MoCA is to be used as a screening tool and not used as the sole indicator to determine patient's capacity (i.e. if a patient is competent to make decisions or care for themselves). It should be noted that the validity of MOCA results decreases with repeat tests given in such close proximity. Test-retest performance is recommended to be completed 1 month after first assessment. U/E: UE exercise performed to increase strength and endurance to further independence with ADLs/IADLs. Pt completed BUE: AROM 10 reps x 1 for all available motions/planes utilizing a light resistance theraband (yellow) OT provided education on correct technique, speed and end range. Pt will require reinforcement of this education/training. Frequent rest breaks required d/t weakness, fatigue and decreased activity tolerance. Patient required maximum to track the number of repetitions and maintain proper form throughout each exercise. UE HEP handout provided and theraband. ADLs: Not completed this date, SBA with AE in previous session. Transfers: Not completed this date, SBA with AE in previous session. At end of session: patient resting in bed, alarm activated, bed in lowest position, call light and tray table within reach, education provided on use call light and waiting for assistance prior to transferring and family at bedside Pain: Pain at rest: 0/10 Pain during activity: 0/10 Location: N/A Vitals: Pt on room air without signs of shortness of breath during OT. SpO2 at rest >90 %, SpO2 with activity >90% Interdisciplinary Communication: Family Education Education/Training provided: Role of OT, plan of care, ADLs, transfers/mobility, safety, AE needs,d/c recommendations, cognition, driving, IADLs Learners: Patient and family Readiness: accepting Method of Training: verbal Response: Verbalizes understanding; Will benefit from continued reinforcement: yes Adaptive Equipment Recommendations Adaptive Equipment Recommended: Shower stool and Non skid bath mat (previous session, recommendation continues) Adaptive Equipment Available: None Plan to obtain adaptive equipment: Patient and/or family to obtain recommended ADL equipment. Adaptive equipment recommendations/handouts provided. (continues) Goals Patient/Family Stated Goal for Session: agreeable to therapy, eat breakfast Short Term Goals: Patient will complete LB dressing safely withSBAusing adaptive equipment as needed. (met) Patient will complete toileting safely withSBAusing adaptive equipment as needed. (ongoing) Patient will complete functional transfers safely withSBAusing adaptive equipment as needed. (met) Patient will further participate with cognitive assessment to increase safety with functional tasks.(met) Patient will have AE in place to increase safety with ADLs by discharge (goal addressed) New goal 01/26/21 Patient will be independent in UE HEP to increase functional outcome prior to discharge. Patient continues to demonstrate progress towards OT goals: Yes Charges Treatment/Minutes: Today's Evaluation/Treatment Therapeutic exercise: 8 minutes Therapeutic activity: 15 minutes Total Treatment Time: 23 minutes Treatment Session 07/16 Weekly Assessment/Plan (Day 5): Cont POC Therapist Alpha Pager Number [phone] hysical Therapy - Courtney Easton DPT - 01/27/2021 11:06 AM CDT PT continues to follow. Attempted to see patient and declined due to fatigue after just walking withcardiac rehab. Will follow up as appropriate. Adrianne oDANY, DPT Alpha Pager: [phone] [facility]di[facility] Rehab - Jumana Brooks EP - 01/27/2021 10:57 AM CDT Cardiac Rehab Phase 1 Inpatient Note: Diagnosis: Stent x1 Physical Activity Completed: Ambulate in [place] Distance Ambulated: 264 feet Ambulation Assistance: Contact guard assist Patient response to Exercise: good Exercise Comments: CGA with sit to stand, steady gait with pushing FWW. He continues to feel wobbly and did have one LOB, self correct at the beginning of walk. Gaitbelt used with activity Vitals Exercise Heart Rate - 76 bpm O2 Device - RA Exercise SpO2 - 96% Assessment/Plan: Tolerates activity well. Encouraged patient to ambulate in hallway 3-4 times daily as tolerated with gradual progression. -Progress as tolerated -Patient referred to outpatient Cardiac Rehab program -Continue to follow until until Discharge -Home activity and exercise teaching completed Recommendation: "Outpatient Cardiac Rehab- [place] Continue Inpatient Cardiac Rehab Plan of Care daily until discharge. Cardiac Rehab Alpha Pager: [phone] are Planning - Amy Schuler RN - 01/27/2021 6:44 AM CDT Problem: RISK FOR INEFFECTIVE CEREBRAL PERFUSION Goal: NEUROLOGICAL STATUS Description: DEFINITION: Ability of the peripheral and central nervous systems to receive, process, and respond to internal and external stimuli. 1=Severely compromised, 2=Substantially compromised, 3=Moderately compromised, 4=Mildly compromised, 5=Not compromised. Outcome: NOC Rating 4 Flowsheets (Taken 01/27/2021 0742) Initial Score: 4 Target Score: 5 Plan of care reviewed with: Patient Patient specific goal for the day: No neuro decline Patient specific goal for the stay: To return to neurological baseline Achieve goal for stay: By discharge Patient Progress: A&Ox4. BP higher than parameter, hydralazine given x2, other VSS on RA. Continues on heparin gtt. Pt up SBA with FFW. NIHSS 0, neuros intact. linical Team - Jeronimo Vargas RN - 01/26/2021 5:52 PM CDT [facility] to [facility], skin assessment completed with Cassia Preciado RN Upon skin assessment including pressure points findings include: Bruising to R hand, old surgical scar to center chest and abd Plan/Intervention: Routine skin care, Encourage activities manage moisture Clinical Team - Bev Murray RN - 01/26/2021 2:42 PM CDT Floor Technician spoke with patient and . Updated that Cardiology from [facility] does go out to [place] for outreach. That would be more convenient for them. Discussed APT, possible triple therapy. Reviewed that depending on the plan this nurse would catina and remind them if a medication needs to be stopped. hysical Therapy - Hyun Juan, PT - 01/26/2021 2:24 PM CDT Physical Therapy Acute Inpatient Treatment Note ASSESSMENT/RECOMMENDATIONS Improved balance, ambulates modified independent FWW. CGA no AD. Recommend home with family, may need FWW at discharge. HH PT 6-Clicks Basic Mobility Score: 22 Activity Prescription with Nursing: With assist of SBA, FWW, walk in [place] 3 times per day. At a minimum, up to chair for all meals or 3 times per day. Encourage walking to bathroom rather than use commode or bedpan. Anticipated D/C Service needs: HHPT SUBJECTIVE No pt concerns OBJECTIVE Bed Mobility: independent Transfers: Sit to/from stand with modified independent, FWW. Toilet transfer SBA. Gait: 300' no AD, wide OMAR, mild lateral sway, no LOB, CGA Balance Training: Brushes teeth at sink, SBA [place] Balance Score 44/56, which indicates a high (0-42), moderate (43-47), low (48-56) fall risk [place] Balance Scale Sitting to Standing: Able to stand independently using hands Standing Unsupported: Able to stand safely 2 minutes Sitting with back unsupported but feet supported on floor or on a stool - (if able to stand 2 minutes unsupported, score full points for sitting unsupported. Proceed to item #4): Able to sit safely and securely 2 minutes Standing to Sitting: Sits safely with minimal use of hands Transfers: Able to transfer safely with minor use of hands Standing unsupported with eyes closed: Able to stand 10 seconds safely Standing unsupported with feet together: Able to place feet together independently and stand 1 minute safely Reaching forward with outstretched arms: Can reach forward confidently greater than 25 cm (10 inches) field support rep object from the floor from a standing position: Able to pickling operator slipper safely and easily Turning to look behind over left and right shoulders while standing: Looks behind one side only other side shows less weight shift Turn 360 degrees: Able to turn 360 degrees safely but slowly Placing alternate foot on step or stool while standing unsupported: Able to complete greater than 2 steps needs minimal assist Standing unsupported one foot in front: Able to take small step independently and hold 30 seconds Standing on one leg: Tries to lift leg unable to hold 3 seconds but remains standing independently Total Score: 44 Other: In bed, call light in reach, bed alarm on Education: Pt was educated on POC for today's session, pt agreeable. Interdisciplinary Communication: Spoke with interdisciplinary team members regarding patient plan ofcare. PLAN Continue plan of care. Today's Treatment: Gait Trainin minutes Therapeutic Exercise: 0 minutes Therapeutic Activity: 0 minutes TOTAL TIMED CODES: 30 minutes TREATMENT TOTAL TIME: 30 minutes [id number] corrina Valencia - Radha Stewart RN - 01/26/2021 2:11 PM CDT CASE MANAGEMENT / SOCIAL SERVICE TRANSITION PLAN - PROGRESS NOTE PLAN: Awaiting Medical Doctor Recommendations for Transition Will Continue to Follow for Support and Progression Towards Final Transition Plan BARRIERS TO TRANSITION: Awaiting Collateral Information Discharge Needs to be Determined Medical barriers:. IMC cares, tele, cardiology following, medication adjustments - monitoring, PT/OTfollowing DOES ACCEPTING FACILITY REQUIRE COVID TESTING BEFORE DISCHARGE: N/A COMMENTS / PATIENT AND FAMILY RESPONSE TO PLAN: Chart reviewed.No concerns for CM. Cardiology monitoring closely. Will need loop before discharge. Per therapies, patient is safe to return home. Cardiac rehab following, plan for referral on d/c. Patient declines need for home health therapies. He will return home with and has a ride availablewhen needed. CM to follow and assist with safe discharge planning. IS PATIENT'S ADMISSION ASSOCIATED WITH TIA, ISCHEMIC, OR HEMORRHAGIC STROKE?: No PATIENT / SUBSTITUTE DECISION MAKER GOAL UPON TRANSITION: First Choice: Home: Family/Friend Support ANTICIPATED NEEDS UPON TRANSITION: Home: Family/Friend Support Outpatient Therapy: Occupational Therapy and Physical Therapy RESOURCE(S) PROVIDED: Home Health VERIFIED CORRECT PHARMACY IS ENTERED FOR DISCHARGE: Yes - Pharmacy: . [id number] [place] [address] TRANSITION ROUNDING COMPLETED WITH THE FOLLOWING: Patient / family Psychiatric Aide Attending MD SIGNED: Radha Stewart RN BSN Case Management - 6AB Rt: [phone] linical Team - Cassia Hui RN - 01/26/2021 11:09 AM CDT Transfer Summary: Pt transferred to room 626 into the care of ARON Serra. VSS. All pressure points inspected and within defined limits. Large right bruise on arm from radial site access from left heart cath. PIV in left forearm. Heparin gtt still running at 22 units/hr. [facility] - Melissa Desai EP - 01/26/2021 11:02 AM CDT Cardiac Rehab Phase 1 Inpatient Note: Diagnosis: Stentx1 Physical Activity Completed: Ambulate in [place] Distance Ambulated: 275 feet Ambulation Assistance: Contact guard assist Patient response to Exercise: good Exercise Comments: Patient uses FWW due to balance issues. Has a fast gait - not sure if he needs the FWW or not. Gaitbelt used with activity Vitals O2 Device - RA Exercise SpO2 - 88-90% Assessment/Plan: Tolerates activity well. Encouraged patient to ambulate in hallway 3-4 times daily as tolerated with gradual progression. -Progress as tolerated -Patient referred to outpatient Cardiac Rehab program -Continue to follow until until Discharge -Home activity and exercise teaching completed Recommendation: "Outpatient Cardiac Rehab [place] Continue Inpatient Cardiac Rehab Plan of Care daily until discharge. [facility] Re[facility] Pager: [phone] Occupational Therapy - Donita Vásquez OTR/L - 01/26/2021 8:45 AM CDT Occupational Therapy Acute Care Progress Note Impression/Recommendations Recommending home with spouse support upon medical stability. Pt presenting with impairments including decreased strength/endurance. Pt demonstrating ability to complete ADLs with SBA using AE. Pt to continue to benefit from skilled OT in order to address the above deficits to increase functional independence in ADLs, IADLs, and transfers/mobility. Objective Diagnosis: ICD-10-CM 1. Stented coronary artery Z95.5 CARDIAC REHAB PHASE II CARDIAC REHAB PHASE II Precautions: Standard precautions Infection Control: Standard Precautions Cognition: Pt is alert. Oriented to: Person, place, time, situation. Patient reports memory difficulty prior to admit related to age, MRI showed small infarcts in the right midbrain. Will continue to monitor/assess U/E: ROM/strength WFL, but patient feels "weaker than normal" - will provide HEP ADLs: Feeding: independent Grooming: standby assistance standing at sink, using FWW Dressing: standby assistance starr/doff socks and starr underwear with SBA; initiated from seated position Toileting: not needing to void at this time Bathing: Discussed using a shower stool, non skid bath mat and remaining seated for increased safety as patient still feels his balance is not back to baseline and feels more comfortable using a walker at this time. Transfers: Bed: Reports independent Chair: standby assistance using FWW Toilet: standby assistance using FWW Mobility/Ambulation: standby assistance with FWW. Ambulated to/from chair, toilet, sink then safelyback to chair At end of session: patient up in chair, call light and tray table within reach, education provided on use call light and waiting for assistance prior to transferring , RN updated on patient status and Gripper socks and gait belt donned for all OOB activity. Pain: Pain at rest: 2/10 Pain during activity: 2/10 Location: headache - RN present gave Tylenol Vitals: Pt on room air without signs of shortness of breath during OT. SpO2 at rest 97 %, SpO2 with activity 95% Interdisciplinary Communication: Nurse Education Education/Training provided: Role of OT, plan of care, ADLs, transfers/mobility, safety, AE needs,d/c recommendations Learners: Patient Readiness: accepting Method of Training: verbal Response: Demonstrates understanding; Will benefit from continued reinforcement: yes Adaptive Equipment Recommendations Adaptive Equipment Recommended: Shower stool Non skid bath mat Adaptive Equipment Available: none Plan to obtain adaptive equipment: Patient and/or family to obtain recommended ADL equipment. Adaptive equipment recommendations/handouts provided. Goals Patient/Family Stated Goal for Session: agreeable to therapy, eat breakfast Short Term Goals: Patient will complete LB dressing safely withSBAusing adaptive equipment as needed. (met) Patient will complete toileting safely withSBAusing adaptive equipment as needed. (ongoing) Patient will complete functional transfers safely withSBAusing adaptive equipment as needed. (met) Patient will further participate with cognitive assessment to increase safety with functional tasks.(ongoing) Patient will have AE in place to increase safety with ADLs by discharge (goal addressed) New goal 01/26/21 Patient will be independent in UE HEP to increase functional outcome prior to discharge. 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, symptoms resolved, symptoms improved Large apical LV thrombus Nonsustained SVT Nonsustained VT Intermittent AV block with multiple pauses of 4 to 6 seconds UTI PMH: CAD, T2DM, HTN, Chronic renal failure Recommendations/Plan: Encourage intake of 3 meals/day Malnutrition Summary Malnutrition Assessment Date: 01/24/21 Moderate (non-severe) protein calorie malnutrition Malnutrition Characteristics in the Context of Chronic Illness (greater than 3 months): Energy Intake: Less than or equal to 75% intake of estimated energy needs for greater than or equal to 1 month Subcutaneous Fat Loss: Moderate Muscle Loss: Moderate Interventions: Monitor oral intake/advance diet as tolerated;Supplement diet with ONS (oral nutrition supplements)/nutrient dense foods NUTRITION ASSESSMENT Pt had adequate intake on the first day of admit, met <50% of est needs yesterday (noted pt was NPO in the AM). Pt reports appetite is improving, plan to continue with current nutrition interventionof one snack/day. Anthropometrics: Height: 170.2 cm (5' 7") Admission Weight: Weight: 65.5 kg (144 lb 6.4 oz) as of 01/23/2021 per bed scale Most Recent Weight: Weight: 67.3 kg (148 lb 5.9 oz) (01/25/21 0606) per unknown source BMI: Body mass index is 23.24 kg/m. IBW: 67 kg %IBW: 98% (based on admit weight) Usual Body Weight: States it was ~160 lbs and is now closer to 145 lbs. Unintentional Weight Loss: Limited weight hx on file. Per care every has had a 4% weight loss since July (not considered significant), however patient reports going from ~160 lbs to 145 lbs in theprevious month. Unable to confirm with limited weight hx on file. Care Everywhere: 07/21/20: 151 lbs Estimated Needs: [id number] kcal/day (26-27 kcal/kg Using: Admission Weight) 70-75 gm protein (1.1 gm/kg Using:Admission Weight) (per renal function) Fluids per MD Estimated average intake over the last 2 days: 01/25 (NPO for Cardiac Cath, then 50% intake): 550 kcal and 20 gm protein, which meets: 30 % of estimated kcal needs and 30 % of estimated protein needs. 01/24 (100% intake): 1600 kcal and 95 gm protein, which meets: 95 % of estimated kcal needs and >100 % of estimated protein needs. Intake Records: Intake Prior to Admit: Less than 75% of estimated energy requirements for greater than or equal to 1 month per patient report. He reports decreased appetite and intake the previous month, but then states "it's been a long time". States he typically consumes 2 meals daily, what he eats changes daily. Didn't provide to RD how much less he was eating or specifics as to what he was consuming. Current Intake: Adequate intake on first day of admit, met <50% of est needs yesterday. Current Diet: Nutrition (From admission, onward) Start Ordered 01/25/21 1005 Diet - Heart Healthy Now Question: Modified Diets Answer: Heart Healthy 01/25/21 1002 01/24/21 1410 SNACKS Once info Comments: PM: chocolate pudding 01/24/21 1409 Physical Assessment: Edema: None documented GI Assessment: Abdominal exam: WDL per electronic systems security assessment at 0400 today. Stool Frequency: 0-1x/day over the last 2 days Wounds/Pressure Points: (per electronic systems security assessment at 0400 today) WDL Functional Status: PT Following OT Following Nutrition Focused Physical Exam: Completed by RD on 01/24 Below the Eye (fat): Slightly dark circles, somewhat hollow look (mild-moderate) (moderate) Worship (muscle): Slight depression (mild-moderate) (moderate) Buccal (fat): Flat cheeks (moderate) Clavicle (muscle): Some protrusion of bone (mild-moderate) (moderate-severe) Shoulder (muscle)/Deltoid muscle: Acromion process slightly protrudes (mild- moderate) (moderate) Triceps/Biceps (fat): Some depth to pinch, but not ample (mild-moderate) (moderate) Hand/Interosseous (muscle): Slightly depressed (mild-moderate) (moderate) Thigh (muscle): Mild depression on inner thigh (mild-moderate) (moderate-severe) Calf (muscle): Not well developed (mild-moderate) Nutritionally-Relevant Medications, Vitamins and Minerals: Antibiotics, Sliding Scale Insulin, Statins Nutritionally-Relevant Biochemical Data: (01/26/2021) Glucose 178 H Allergies/Food Intolerance: Eddie has No Known Allergies. Culturally Taoism Needs: NA INTERVENTIONS Encouraged adequate calories and optimal protein in small, frequent meals and snacks Will send snacks and supplements daily Dislikes smell of container that his warm food comes up on, will send up meals in styrofoam instead MONITORING/EVALUATION Monitor ability to consume and tolerate adequate intake to approximate estimated needs with accomodation of preferences and tolerances until intake is sustained within desirable limits Monitor I&O, weight trends, nutrition-related labs and medications, clinical status, and planof care r/t need for nutrition intervention and provide as warranted Nutrition Therapy will reassess every 1-[address] (Nikki Gerhold), LRD [facility] Pager: #[phone] Phone: [phone] linical Team - Sacha Fischer RN - 01/26/2021 6:22 AM CDT SHIFT SUMMARY [id number] Summary No acute events overnight. Will report to oncoming nurse. Assessment Neuro: AOx4. Q4hr neuro checks, unchanged. NIHSS score of 0. Equal strength. Denies numbness/tingling. PERRLA. Tmax 99.5. Cardiac: Irregular rhythm/Sinus gely 50-60s. Per report jumps from SB w/ moments of SVT up to 140s,has not had SVT runs this shift. SBP goal <150, PRN hydralazine given, see MAR. Provider paged due to SBP in 160s, PRN hydralazine given again. Jeff chest pain/SOB. Respiratory: RA, sating >92%. GI/: Bathroom privileges/urinal, voiding. No BM. Diabetic diet. Skin: Old R radial art line site, large bruise that has not progressed, provider aware. Lines: R) hand PIV Gtts: Heparin Clinical Team - Cassia Hui RN - 01/25/2021 3:50 PM CDT Shift Summary [id number]: Neuro: Q4. NIHSS per shift. A&Ox4. Follows commands. PERRLA. Cardiac: Variable. Bouts of SVT up in the 140s and self converts to SB 40-50s. SBP less 150, met throughout shift. Resp: RA. Sating above 90%, lung sounds clear and diminished. GI/: Diabetic diet. Voiding. Bathroom priveledges. IV/Drains: Right hand PIV with heparin running. Heparin gtt running at 12 units. Pt went down to left heart cath today, two stents placed via right radial site. Concern for hematomaformation. catheterization laboratory technician nurse held pressure for 20 minutes, applied additional band on radial site and marked area of swelling and bruising. This nurse was told to monitor for increased swelling and call catheterization laboratory technician if any changes. Arm appeared more swollen and bruised, paged Danis Gonzalez to take a look at site, he assessed and told this nurse to start letting air out of the radial band. Continuing to see bruising up the arm, this nurse called catheterization laboratory technician nurses to assess the pt were Danis was again paged to assess the pt. The radial bands were removed with no increased hematoma. peech Therapy - Netta Arambula SLP - 01/25/2021 2:46 PM CDT Speech therapy follow up. Visited with patient this afternoon and he reported he feels he is functioning at his cognitive baseline. He reported some normal decline in memory related to age, but denies any acute changes. Patient did fairly well on non-standardized testing yesterday and the few things that were challenging he reported would have been challenging prior to his stroke (midbrain infarct). No further cognitive intervention is warranted at this time. Patient was strongly encouraged to self-monitor for any new changes in cognitive skills after d/c, he stated understanding. NANOSCIENCE TECHNICIAN will sign off. Pager: [phone] linical Team - Bev Murray RN - 01/25/2021 2:15 PM CDT Interventional Cardiology nurse teaching visit done with patient and family Eddie Mario is a 85yr old male who underwent PCI dLAD with ANGY and PCI to LAD and D2 bifurcation at [facility] in [facility]. Patient is from [place]. It would be easier for him to follow up with Cardiology in [facility]. They would prefer to see anyone from either [facility] or [place] that does outreach in [place], otherwise they will go to [place]. LV Function assessment Patient's EF is 55%, but he does have an apical thrombus. Discussed that he may need to be on additional blood thinners, that there will be a repeat Echo to assess if the thrombus has decreased. Essential Medications post-stent Reviewed the importance of DAPT. Patient's is also on Plavix. Reviewed not to miss any doses of ASA and Plavix and or Brilinta. Statin drugs LDL 52, on Lipitor 40 mg. Nitroglycerin Patient states he has never had NTG. His has. Discussed that he may be discharged with NTG. Risk factors Diabetes- Work with PCP. High cholesterol- Lab Results Component Value Date CHOLESTEROL 93 (L) 01/24/2021 TRIGLYCERIDE 119 01/24/2021 HDLCHOL 17 (L) 01/24/2021 LDL 52 01/24/2021 No results found for: ALT No results found for: TSH Lab Results Component Value Date GLUCOSE 160 (H) 01/25/2021 Physical Therapy - Hyun Juan, PT - 01/25/2021 1:40 PM CDT Physical Therapy Acute Inpatient Treatment Note ASSESSMENT/RECOMMENDATIONS Ambulation and balance improved since prior session. Ambulates with FWW, modified independent. No AD, CGA. Recommend discharge home with spouse, may need FWW. PT 6-Clicks Basic Mobility Score: 22 Activity Prescription with Nursing: With assist of SBA, FWW, walk in [place] 3 times per day. At a minimum, up to chair for all meals or 3 times per day. Encourage walking to bathroom rather than use commode or bedpan. Anticipated D/C Service needs: HHPT SUBJECTIVE R UE sore from procedure this am Reports he just walked with cardiac rehab OBJECTIVE Bed Mobility: independent Transfers: Sit to/from stand with independent. Toilet transfers SBA 5x [id number] Patient is able to perform 5 sit to stands in 14 seconds. > 15 seconds is predictive of falls. Gait: 300' FWW modified independent. 30' 10' no AD, CGA. Other: Pt up in chair, call light in reach. Education: Pt was educated on POC for today's session, pt agreeable. Response to Activity: Observation: no change from baseline Interdisciplinary Communication: Spoke with interdisciplinary team members regarding patient plan ofcare. PLAN 1 more visit if needed Today's Treatment: Gait Trainin minutes Therapeutic Exercise: 0 minutes Therapeutic Activity: 0 minutes TOTAL TIMED CODES: 23 minutes TREATMENT TOTAL TIME: 23 minutes [id number] [facility] - Jumana Brooks EP - 01/25/2021 1:26 PM CDT Cardiac Rehab Phase 1 Inpatient Note: Diagnosis: Stent x1 Physical Activity Completed: Ambulate in [place] Distance Ambulated: 264 feet Ambulation Assistance: Contact guard assist Patient response to Exercise: good Exercise Comments: CGA with sit to stand, steady gait with pushing FWW. Pt notes that his balance was off due to TIA but no loss of balance with walking. Gaitbelt used with activity Vitals O2 Device - RA Assessment/Plan: Tolerates activity well. Encouraged patient to ambulate in hallway 3-4 times daily as tolerated with gradual progression. -Progress as tolerated -Patient referred to outpatient Cardiac Rehab program -Continue to follow until until Discharge Recommendation: "Outpatient Cardiac Rehab- [place] Continue Inpatient Cardiac Rehab Plan of Care daily until discharge. Cardiac Rehab [facility] Pager: [phone] ase Mgmt - Radha Stewart RN - 01/25/2021 1:19 PM CDT CASE MANAGEMENT / SOCIAL SERVICE TRANSITION PLAN - PROGRESS NOTE PLAN: Awaiting Medical Doctor Recommendations for Transition Will Continue to Follow for Support and Progression Towards Final Transition Plan BARRIERS TO TRANSITION: Awaiting Collateral Information Discharge Needs to be Determined Medical barriers:. IMC cares, tele, cardiology following - had heart cath this morning, medication adjustments - monitoring, PT/OT following DOES ACCEPTING FACILITY REQUIRE COVID TESTING BEFORE DISCHARGE: N/A COMMENTS / PATIENT AND FAMILY RESPONSE TO PLAN: Chart reviewed. Patient in procedure with cardiology on CM's first attempt to visit with patient. Returned to room and patient was resting. No immediate concerns for CM at this time. Cardiology following - medications adjustments. Patient had heart this am and cardiology following HR closely post procedure. Will need loop recorder before discharge. No plans for pacemaker at this time. Therapies worked with patient yesterday. Safe to discharge home with family support and continued HHtherapies. CM to follow and assist with safe discharge planning. IS PATIENT'S ADMISSION ASSOCIATED WITH TIA, ISCHEMIC, OR HEMORRHAGIC STROKE?: No PATIENT / SUBSTITUTE DECISION MAKER GOAL UPON TRANSITION: First Choice: Home: Family/Friend Support ANTICIPATED NEEDS UPON TRANSITION: Home Health: Occupational Therapy and Physical Therapy Home: Family/Friend Support Outpatient Therapy: Occupational Therapy and Physical Therapy RESOURCE(S) PROVIDED: Home Health VERIFIED CORRECT PHARMACY IS ENTERED FOR DISCHARGE: Yes - Pharmacy: . [id number] [place] [id number] TRANSITION ROUNDING COMPLETED WITH THE FOLLOWING: Patient / family Psychiatric Aide Attending MD SIGNED: Radha Stewart RN BSN Case Management - 6AB Rt: [phone] linical Team - Tristan Shi RN - 01/25/2021 6:58 AM CDT Shift Summary Assessment No acute changes Neurological: Neuro Q4hrs. NIH Qshift = 0 Respiratory: Clear lungs; RA O2: 96% Cardiac: Had one SVT in the 140's; self revered back to baseline 60's Monitor: for SVT's GI/: no concerns, No BM Nutrition/Diet: NPO since midnight; Plan: Cardiac Cath Possible Angioplasty Stent Cath Lab harmacy - Dustin Luo, PHARM D - 01/24/2021 8:29 PM CDT 01/24/2021 8:31 PM CDT Patient was seen by pharmacy for medication reconciliation. Home medications have been reconciled and updated on the home medications list to match the patient's home usage. Medications Deleted: None Medications Added: Aspirin 81 mg EC tablet - daily Zinc 50 mg capsule - daily Vitamin B12 1000 mcg tablet - daily Turmeric 500 mg capsule - daily Medications Changed: None Additional information: None Patient denies use of other inhalers, creams/ointments, eye/ear drops, patches or injectables, OTCs,vitamins and/or herbal products. Prior to Admission Medications Prescriptions Last Dose Informant Patient Reported? Taking? Zinc (ZINC) 50 MG CAPS Past Month at Unknown time Self Yes Yes Sig: Take 50 mg by mouth 1 time per day aspirin (ECOTRIN LOW STRENGTH) 81 MG enteric coated tablet Past Month at Unknown time Self Yes Yes Sig: Take 81 mg by mouth 1 time per day carVEDilol (COREG) 6.25 mg tablet Past Week at Unknown time MED Bottles or MED List Yes Yes Sig: Take 6.25 mg by mouth 2 times a day cyanocobalamin (VITAMIN B-12) 1000 mcg tablet Past Month at Unknown time Self Yes Yes Sig: Take 1,000 mcg by mouth 1 time per day losartan 100 mg tablet Past Week at Unknown time MED Bottles or MED List Yes Yes Sig: Take 100 mg by mouth 1 time per day metFORMIN (GLUCOPHAGE) 1000 MG tablet Past Week at Unknown time MED Bottles or MED List Yes Yes Sig: Take 1,000 mg by mouth 2 times a day simvastatin (ZOCOR) 20 mg tablet Past Week at Unknown time MED Bottles or MED List Yes Yes Sig: Take 20 mg by mouth 1 time per day turmeric 500 mg capsule Past Month at Unknown time Self Yes Yes Sig: Take 500 mg by mouth 1 time per day Facility-Administered Medications: None Dustin Luo, PHARM D Clinical Team - Chelsey Lacey RN - 01/24/2021 6:22 PM CDT Shift Summary [id number] Summary -No acute changes Assessment Neurological: A&O x4, NIHSS 0, Q4hr neuros, denies any pain, numbness or tingling. Respiratory: Clear bilaterally on RA Cardiac: ST/SB.. pt has runs of SVT and self converts to sinus gely. SBP WDL GI/: Up with SBA to bathroom, bowel sounds active Nutrition/Diet: Diabetic Diet linical Team - Chelsey Lacey RN - 01/24/2021 4:09 PM CDT Verified the following with Rico Cordero RN Code status order: DNR Patient understands and agrees Code status band applied Occupational Therapy - Donita Vásquez OTR/Alan - 01/24/2021 3:30 PM CDT Occupational Therapy Acute Care Evaluation Note Impression/Recommendations Recommending home upon medical stability. Patient is demonstrating ability to complete ADLs with SBA/CGA using proper AE. Patient will continue to benefit from skilled OT in order to address the above deficits to increase functional independence in ADLs, IADLs, and transfers/mobility. Admitting Diagnosis: TIA History of Present Illness: Refer to H&P for details Past Medical History: Past Medical History: Diagnosis Date CAD (coronary artery disease) PCI Diabetes (HCC) HTN (hypertension) Activity Level: Progressive mobility bundle Precautions: Fall Risk Infection Control: Standard Precautions Patient History Social/Home Environment: Patient lives: with their House: House Home Environment: Bed/Bath on main level: Yes Bathroom Setup: walk in shower with curtain Employment: not employed Prior Level of Function Independent with: ADL/IADLs Assistance needed with: none Comments: No ambulation device Adaptive Equipment Available: none Present for Eval: Patient and family Objective Activities of Daily Living: Feeding: independent Grooming: standby assistance standing at sink, using FWW Upper Extremity Dressing: to be assessed Lower Extremity Dressing: standby assistance starr B socks, seated . Educated to initiate from seated position Bathing: Discussed safety using shower stool, if balance difficulty persists Toileting: SBA/CGA, using FWW, grab bar Homemaking: Reports spouse can assist as needed upon return home Educated energy conservation/home management safety Transfers: Bed: standby assistance, supine <> sit Chair: contact guard assistance using FWW Toilet: contact guard assistance using FWW Tub/Shower: Discussed safety in/out of shower, reports no concerns Mobility/Ambulation: contact guard assistance with FWW No LOB observed during session, but did haveLOB with PT earlier in day, admitted with decreased balance, so will re-assess again to ensure safety At end of session: patient resting in bed, bed in lowest position, call light and tray table within reach and Gripper socks and gait belt donned for all OOB activity. Pain: Pain at rest: 0/10 Pain during activity: 0/10 Location: none Vitals: Pt on room air without signs of shortness of breath during OT. Upper Extremity Function: Range of Motion: Right:within functional limits Left: within functional limits Strength: Right: within functional limits Left: within functional limits Endurance: within functional limits Coordination: intact Sensation: intact Edema: No Dominant Hand: right Cognition: Orientation: alert. Oriented to: Person, place, time, situation Attention: intact Following Directions: intact Safety Awareness: appears intact Impulsivity: None Visual/Perception: Denies acute deficits, able to track vertical/horizontal, identify # of fingers R/L of midline, read from menu, identify time on wall clock Glasses: Yes- at all times Neglect: No Field Cut: No Interdisciplinary Communication: Family/Caregivers and patient Education Education/Training provided: Role of OT, plan of care, ADLs, transfers/mobility, safety, AE needs,d/c recommendations Learners: Patient Readiness: accepting Method of Training: verbal Response: Verbalizes understanding; Will benefit from continued reinforcement: yes Adaptive Equipment Recommendations Adaptive Equipment Recommended: Shower stool Grab bar shower Grab bar toilet Plan to obtain adaptive equipment: To further assess. Assessment/Plan Assessment: Patient demonstrates decreased independence with ADL/IADL tasks and decreased independence with functional mobility Patient showing a decrease in ADL/transfer performance and will benefit from continued OT. Plan: Patient to be seen 1-2 more visits to work toward goals listed below. Treatment plan will consist of Sunday thru Sunday sessions. Goals Patient/Family Stated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 Timed Routine 01/29/2021 12:54 Results for this ANTI-XA PM CDT procedure are i n the results section. GLUCOSE BY METER, POCT Routine 01/29/2021 11:17 R esults for this AM CDT procedure are i n the results section. HEPARIN UNFRACTIONATED Timed Routine 01/29/2021 6:46 Results for this ANTI-XA AM CDT procedure are i n the results section. PROTIME/INR Timed Routine 01/29/2021 6:46 Results fo r this AM CDT procedure are i n the results section. GLUCOSE BY METER, POCT Routine 01/29/2021 4:51 R esults for this AM CDT procedure are i n the results section. HEPARIN UNFRACTIONATED Timed Routine 01/29/2021 12:34 Results for this ANTI-XA AM CDT procedure are i n the results section. GLUCOSE BY METER, POCT Routine 01/28/2021 8:55 R esults for this PM CDT procedure are i n the results section. HEPARIN UNFRACTIONATED STAT 01/28/2021 8:23 R esults for this ANTI-XA PM CDT procedure are i n the results section. HEPARIN UNFRACTIONATED Timed Routine 01/28/2021 7:13 Results for this ANTI-XA PM CDT procedure are i n the results section. GLUCOSE BY METER, POCT Routine 01/28/2021 5:58 R esults for this PM CDT procedure are i n the results section. HEPARIN UNFRACTIONATED Timed Routine 01/28/2021 5:42 Results for this ANTI-XA PM CDT procedure are i n the results section. GLUCOSE BY METER, POCT Routine 01/28/2021 11:47 R esults for this AM CDT procedure are i n the results section. HEPARIN UNFRACTIONATED Timed Routine 01/28/2021 10:48 Results for this ANTI-XA AM CDT procedure are i n the results section. PROTIME/INR Timed Routine 01/28/2021 6:49 Results fo r this AM CDT procedure are i n the results section. GLUCOSE BY METER, POCT Routine 01/28/2021 6:14 R esults for this AM CDT procedure are i n the results section. LAB ONLY-COMPLETE Routine 01/28/2021 3:57 Result s for this BLOOD COUNT WITH AM CDT procedure a re in DIFFERENTIAL the results section. HEPARIN UNFRACTIONATED Timed Routine 01/28/2021 3:57 Results for this ANTI-XA AM CDT procedure are i n the results section. BASIC METABOLIC PANEL Routine 01/28/2021 3:57 Re sults for this AM CDT procedure are i n the results section. LAB ONLY-COMPLETE Routine 01/28/2021 3:57 Result s for this BLOOD COUNT WITH AM CDT procedure a re in DIFFERENTIAL the results section. GLUCOSE BY METER, POCT Routine 01/27/2021 9:10 R esults for this PM CDT procedure are i n the results section. HEPARIN UNFRACTIONATED Routine 01/27/2021 8:50 R esults for this ANTI-XA PM CDT procedure are i n the results section. GLUCOSE BY METER, POCT Routine 01/27/2021 5:13 R esults for this PM CDT procedure are i n the results section. LOOP RECORDER IMPLANT Routine 01/27/2021 3:50 Re sults for this [employer] PM CDT procedure are i n the results section. HEPARIN UNFRACTIONATED Timed Routine 01/27/2021 2:17 Results for this ANTI-XA PM CDT procedure are i n the results section. GLUCOSE BY METER, POCT Routine 01/27/2021 10:54 R esults for this AM CDT procedure are i n the results section. CT HEAD WITHOUT Routine 01/27/2021 10:39 Results for this CONTRAST AM CDT procedure are i n the results section. HEPARIN UNFRACTIONATED Timed Routine 01/27/2021 7:36 Results for this ANTI-XA AM CDT procedure are i n the results section. PROTIME/INR Timed Routine 01/27/2021 7:36 Results fo r this AM CDT procedure are i n the results section. GLUCOSE BY METER, POCT Routine 01/27/2021 5:12 R esults for this AM CDT procedure are i n the results section. HEPARIN UNFRACTIONATED Timed Routine 01/27/2021 1:27 Results for this ANTI-XA AM CDT procedure are i n the results section. GLUCOSE BY METER, POCT Routine 01/26/2021 9:55 R esults for this PM CDT procedure are i n the results section. HEPARIN UNFRACTIONATED Timed Routine 01/26/2021 6:37 Results for this ANTI-XA PM CDT procedure are i n the results section. GLUCOSE BY METER, POCT Routine 01/26/2021 5:28 R esults for this PM CDT procedure are i n the results section. HEPARIN UNFRACTIONATED Timed Routine 01/26/2021 12:30 Results for this ANTI-XA PM CDT procedure are i n the results section. PROTIME/INR STAT 01/26/2021 12:30 Results for this PM CDT procedure are i n the results section. GLUCOSE BY METER, POCT Routine 01/26/2021 11:27 R esults for this AM CDT procedure are i n the results section. LAB ONLY-COMPLETE Routine 01/26/2021 5:21 Result s for this BLOOD COUNT WITH AM CDT procedure a re in DIFFERENTIAL the results section. HEPARIN UNFRACTIONATED Timed Routine 01/26/2021 5:21 Results for this ANTI-XA AM CDT procedure are i n the results section. BASIC METABOLIC PANEL Routine 01/26/2021 5:21 Re sults for this AM CDT procedure are i n the results section. LAB ONLY-COMPLETE Routine 01/26/2021 5:21 Result s for this BLOOD COUNT WITH AM CDT procedure a re in DIFFERENTIAL the results section. GLUCOSE BY METER, POCT Routine 01/26/2021 5:08 R esults for this AM CDT procedure are i n the results section. HEPARIN UNFRACTIONATED Timed Routine 01/25/2021 7:52 Results for this ANTI-XA PM CDT procedure are i n the results section. GLUCOSE BY METER, POCT Routine 01/25/2021 7:46 R esults for this PM CDT procedure are i n the results section. GLUCOSE BY METER, POCT Routine 01/25/2021 4:55 R esults for this PM CDT procedure are i n the results section. HEPARIN UNFRACTIONATED STAT 01/25/2021 1:57 R esults for this ANTI-XA PM CDT procedure are i n the results section. EKG Routine 01/25/2021 12:48 Results for this PM CDT procedure are i n the results section. HEPARIN UNFRACTIONATED Timed Routine 01/25/2021 12:24 Results for this ANTI-XA PM CDT procedure are i n the results section. GLUCOSE BY METER, POCT Routine 01/25/2021 11:18 R esults for this AM CDT procedure are i n the results section. EKG STAT 01/25/2021 10:45 Results for this AM CDT procedure are i n the results section. CARDIAC CATH POSSIBLE Routine 01/25/2021 9:17 Re sults for this ANGIOPLASTY STENT CATH AM CDT proce dure are in LAB the results section. LAB ONLY-COMPLETE Routine 01/25/2021 6:34 Result s for this BLOOD COUNT WITH AM CDT procedure a re in DIFFERENTIAL the results section. HEPARIN UNFRACTIONATED Timed Routine 01/25/2021 6:34 Results for this ANTI-XA AM CDT procedure are i n the results section. BASIC METABOLIC PANEL Routine 01/25/2021 6:34 Re sults for this AM CDT procedure are i n the results section. LAB ONLY-COMPLETE Routine 01/25/2021 6:34 Result s for this BLOOD COUNT WITH AM CDT procedure a re in DIFFERENTIAL the results section. GLUCOSE BY METER, POCT Routine 01/25/2021 5:40 R esults for this AM CDT procedure are i n the results section. HEPARIN UNFRACTIONATED Timed Routine 01/24/2021 10:12 Results for this ANTI-XA PM CDT procedure are i n the results section. GLUCOSE BY METER, POCT Routine 01/24/2021 5:07 R esults for this PM CDT procedure are i n the results section. HEPARIN UNFRACTIONATED NELSY 01/24/2021 3:19 R esults for this ANTI-XA PM CDT procedure are i n the results section. ECHO ADULT COMPLETE Routine 01/24/2021 1:54 Resu lts for this PM CDT procedure are i n the results section. EKG Routine 01/24/2021 1:00 Results for this PM CDT procedure are i n the results section. GLUCOSE BY METER, POCT Routine 01/24/2021 11:20 R esults for this AM CDT procedure are i n the results section. LAB ONLY-COMPLETE Routine 01/24/2021 8:08 Result s for this BLOOD COUNT WITH AM CDT procedure a re in DIFFERENTIAL the results section. LIPID PANEL Routine 01/24/2021 8:08 Results for this AM CDT procedure are i n the results section. TROPONIN I Routine 01/24/2021 8:08 Results for this AM CDT procedure are i n the results section. MAGNESIUM Routine 01/24/2021 8:08 Results for this AM CDT procedure are i n the results section. BASIC METABOLIC PANEL Routine 01/24/2021 8:08 Re sults for this AM CDT procedure are i n the results section. LAB ONLY-COMPLETE Routine 01/24/2021 8:08 Result s for this BLOOD COUNT WITH AM CDT procedure a re in DIFFERENTIAL the results section. GLUCOSE BY METER, POCT Routine 01/24/2021 6:02 R esults for this AM CDT procedure are i n the results section. MRI BRAIN WITHOUT STAT 01/24/2021 12:43 Result s for this CONTRAST AM CDT procedure are i n the results section. MRA NECK WITHOUT STAT 01/24/2021 12:43 Results for this CONTRAST AM CDT procedure are i n the results section. MRA HEAD WITHOUT STAT 01/24/2021 12:42 Results for this CONTRAST AM CDT procedure are i n the results section. documented in this encounter Results GLUCOSE BY METER, POCT (01/31/2021 11:53 AM CDT) Pathologist Sig [facility] Glucose POC 170 (H) 70 - 99 mg/dL [facility] O POINT OF CARE TESTING Specimen Blood - Blood specimen (specimen) Performing Organization Address City/[facility] Phon e Number [facility] POINT [address] [place] [address] 581 04 OF CARE TESTING HEPARIN UNFRACTIONATED ANTI-XA (01/31/2021 8:28 AM CDT) Pathologist Sig nature Heparin Xa 0.53 0.30 - 0.[address] Unfractionated U/mL Specimen Blood - Blood specimen (specimen) Narrative Performed At [address] Therapeutic Range: 0.3 - 0.7 IU/mL Performing Organization Address City/[facility]/ZIP [facility] Phon e Number [address] [place] [address] [place] [address] HEPARIN UNFRACTIONATED ANTI-XA (01/31/2021 6:54 AM CDT) Pathologist Sig nature Heparin Xa 0.66 0.30 - 0.[address] Unfractionated U/mL Specimen Blood - Blood specimen (specimen) Narrative Performed At [address] Therapeutic Range: 0.3 - 0.7 IU/mL Performing Organization Address City/State/ZIP Code Phon e Number [address] [place] [address], [place] [address] LAB ONLY-COMPLETE BLOOD COUNT WITH DIFFERENTIAL (01/31/2021 6:53 AM CDT) [facility] WBC 9.3 4.0 - 11.0 K/uL [address] RBC 3.10 (L) 4.40 - 5.[address] M/uL Hemoglobin 9.1 (L) 13.5 - 17.[address] g/dL Hematocrit 28.0 (L) 40.0 - 50.0 % [address] MCV 90.3 80.0 - 98.[address] MCH 29.4 25.5 - 34.[address] MCHC 32.5 31.5 - 36.[address] g/dL RDW-CV 13.5 11.5 - 15.5 % [address] RDW-SD 44.0 35.5 - 50.[address] Platelet Count 284 140 - 400 K/uL [address] MPV 9.6 8.5 - 12.[address] Seg Neut Absolute 7.2 1.8 - 8.0 K/uL [address] Lymphocytes Absolute 1.0 0.8 - 4.1 K/uL [place] [address] [facility] Monocytes Absolute 0.7 0.0 - 1.0 K/uL [address] Eosinophils Absolute 0.2 0.0 - 0.7 K/uL [place] [address] [facility] Basophil Absolute 0.1 0.0 - 0.2 K/uL [address] Immature Granulocyte 0.07 (H) 0.00 - 0.[address] Absolute K/uL Neutrophils Abs. 7,200 /uL [address] (Segs and Bands) Neutrophils Percent 77.9 % [address] Lymphocytes Percent 11.2 % [address] Monocytes Percent 7.3 % [facility] Immature Granulocyte 0.8 % [address] Percent Eosinophils Percent 1.9 % [address] Basophil Percent 0.9 % [address] Nucleated RBC 0 /[address] Specimen Blood - Venous blood specimen (specimen) Performing Organization Address [facility] Phon e Number [address] [place] [address] BASIC METABOLIC PANEL (01/31/2021 6:53 AM CDT) Pathologist Sig nature Glucose 154 (H) 70 - 100 mg/dL [address] BUN 19 6 - 22 mg/dL [address] Creatinine 1.11 0.80 - 1.[address] mg/dL BUN/Creatinine Ratio 17.1 10.0 - 25.[address] Sodium 138 135 - 145 meq/L [address] Potassium 4.3 3.5 - 5.3 meq/L [address] Chloride 104 99 - 110 meq/L [address] CO2 25 20 - 29 meq/L [address] Anion Gap with K 13 6 - 20 meq/L [address] Calcium 8.7 8.5 - 10.5 mg/dL [address] Age [address] eGFR Non- 63 >=[address] Italian mL/min/1.73m2 eGFR 76 >=[address] mL/min/1.73m2 Specimen Blood - Venous blood specimen (specimen) Performing Organization Address [facility] Phon e Number [address] [place] [address] PROTIME/INR (01/31/2021 6:53 AM CDT) Pathologist Sig nature Protime 22.3 (H) 12.0 - 14.[address] INR 2.1 (H) 0.9 - 1.[address] Specimen Blood - Blood specimen (specimen) Narrative Performed At INR Standard Intensity = (2.0 - 3.0) [address] INR Higher Intensity = (2.5 - 3.5) Performing Organization Address [facility]/ZIP Code Phon e Number [address] [place] [address], [place] [address] GLUCOSE BY METER, POCT (01/31/2021 5:07 AM CDT) Pathologist Sig nature Glucose POC 144 (H) 70 - 99 mg/dL [facility] POINT OF CARE TESTING Specimen Blood - Blood specimen (specimen) Performing Organization Address [facility] Phon e Number [facility] [address] [place] [address] 581 04 OF CARE TESTING HEPARIN UNFRACTIONATED ANTI-XA (01/31/2021 1:35 AM CDT) Pathologist Sig nature Heparin Xa 0.56 0.30 - 0.[address] Unfractionated U/mL Specimen Blood - Blood specimen (specimen) Narrative Performed At [address] Therapeutic Range: 0.3 - 0.7 IU/mL Performing Organization Address [facility] Phon e Number [address] [address] GLUCOSE BY METER, POCT (01/30/2021 7:39 PM CDT) Pathologist Sig nature Glucose POC 153 (H) 70 - 99 mg/dL [facility] POINT OF CARE TESTING Specimen Blood - Blood specimen (specimen) Performing Organization Address [facility] Phon e Number [facility] [address] [place] [address] 581 04 OF CARE TESTING HEPARIN UNFRACTIONATED ANTI-XA (01/30/2021 7:07 PM CDT) Pathologist Sig nature Heparin Xa 0.62 0.30 - 0.[address] Unfractionated U/mL Specimen Blood - Blood specimen (specimen) Narrative Performed At [address] Therapeutic Range: 0.3 - 0.7 IU/mL Performing Organization Address City/[facility]/ZIP Code Phon e Number [address] [place] [address] GLUCOSE BY METER, POCT (01/30/2021 4:10 PM CDT) Pathologist Sig nature Glucose POC 129 (H) 70 - 99 mg/dL [facility] POINT OF CARE TESTING Specimen Blood - Blood specimen (specimen) Performing Organization Address [facility]/ZIP Code Phon e Number [facility] POINT [address] [place] [address] 581 04 OF CARE TESTING HEPARIN UNFRACTIONATED ANTI-XA (01/30/2021 1:03 PM CDT) Pathologist Sig nature Heparin Xa 0.46 0.30 - 0.[address] Unfractionated U/mL Specimen Blood - Blood specimen (specimen) Narrative Performed At [address] Therapeutic Range: 0.3 - 0.7 IU/mL Performing Organization Address [facility] Code Phon e Number [address] [place] [address] GLUCOSE BY METER, POCT (01/30/2021 11:02 AM CDT) Pathologist Sig nature Glucose POC 138 (H) 70 - 99 mg/dL [facility] O POINT OF CARE TESTING Specimen Blood - Blood specimen (specimen) Performing Organization Address [facility] Phon e Number [facility] [address] [place] [address] 581 04 OF CARE TESTING HEPARIN UNFRACTIONATED ANTI-XA (01/30/2021 6:55 AM CDT) Pathologist Sig nature Heparin Xa 0.46 0.30 - 0.[address] Unfractionated U/mL Specimen Blood - Blood specimen (specimen) Narrative Performed At [address] Therapeutic Range: 0.3 - 0.7 IU/mL Performing Organization Address [facility] Phon e Number [address] [place] [address], [place] [address] PROTIME/INR (01/30/2021 6:55 AM CDT) Pathologist Sig nature Protime 20.6 (H) 12.0 - 14.[address] INR 1.9 (H) 0.9 - 1.[address] Specimen Blood - Blood specimen (specimen) Narrative Performed At INR Standard Intensity = (2.0 - 3.0) [address] INR Higher Intensity = (2.5 - 3.5) Performing Organization Address [facility] Code Phon e Number [address] [place] [address] GLUCOSE BY METER, POCT (01/30/2021 4:53 AM CDT) Pathologist Sig nature Glucose POC 155 (H) 70 - 99 mg/dL [facility] POINT OF CARE TESTING Specimen Blood - Blood specimen (specimen) Performing Organization Address City/[facility]/ZIP Code Phon e Number [facility] [address] [facility], [place] 581 04 OF CARE TESTING HEPARIN UNFRACTIONATED ANTI-XA (01/30/2021 12:58 AM CDT) Pathologist Sig nature Heparin Xa 0.50 0.30 - 0.[address] Unfractionated U/mL Specimen Blood - Blood specimen (specimen) Narrative Performed At [address] Therapeutic Range: 0.3 - 0.7 IU/mL Performing Organization Address City/[facility]/ZIP Code Phon e Number [address] [place] [address], [place] [address] GLUCOSE BY METER, POCT (01/29/2021 9:12 PM CDT) Pathologist Sig nature Glucose POC 136 (H) 70 - 99 mg/dL [facility] POINT OF CARE TESTING Specimen Blood - Blood specimen (specimen) Performing Organization Address City/[facility]/ZIP Code Phon e Number [facility] [address], [place] 581 04 OF CARE TESTING HEPARIN UNFRACTIONATED ANTI-XA (01/29/2021 6:59 PM CDT) Pathologist Sig nature Heparin Xa 0.51 0.30 - 0.[address] Unfractionated U/mL Specimen Blood - Blood specimen (specimen) Narrative Performed At [address] Therapeutic Range: 0.3 - 0.7 IU/mL Performing Organization Address City/State/ZIP Code Phon e Number [address] [place] [address], [place] [address] GLUCOSE BY METER, POCT (01/29/2021 5:00 PM CDT) Pathologist Sig nature Glucose POC 182 (H) 70 - 99 mg/dL [facility] POINT OF CARE TESTING Specimen Blood - Blood specimen (specimen) Performing Organization Address City/State/ZIP Code Phon e Number [facility] POINT [address] [facility], [place] 581 04 OF CARE TESTING HEPARIN UNFRACTIONATED ANTI-XA (01/29/2021 12:54 PM CDT) Pathologist Sig nature Heparin Xa 0.51 0.30 - 0.[address] Unfractionated U/mL Specimen Blood - Blood specimen (specimen) Narrative Performed At [address] Therapeutic Range: 0.3 - 0.7 IU/mL Performing Organization Address [facility] Phon e Number [address] [place] [address], [place] [address] GLUCOSE BY METER, POCT (01/29/2021 11:17 AM CDT) Pathologist Sig nature Glucose POC 145 (H) 70 - 99 mg/dL [facility] O POINT OF CARE TESTING Specimen Blood - Blood specimen (specimen) Performing Organization Address [facility] Phon e Number [facility] [address] [place] [address], [place] 581 04 OF CARE TESTING HEPARIN UNFRACTIONATED ANTI-XA (01/29/2021 6:46 AM CDT) Pathologist Sig nature Heparin Xa 0.40 0.30 - 0.[address] Unfractionated U/mL Specimen Blood - Blood specimen (specimen) Narrative Performed At [address] Therapeutic Range: 0.3 - 0.7 IU/mL Performing Organization Address [facility] Phon e Number [address] [place] [address], [place] [address] PROTIME/INR (01/29/2021 6:46 AM CDT) Pathologist Sig nature Protime 16.9 (H) 12.0 - 14.[address] INR 1.5 (H) 0.9 - 1.1 [place] [address] [facility] Specimen Blood - Blood specimen (specimen) Narrative Performed At INR Standard Intensity = (2.0 - 3.0) [address] INR Higher Intensity = (2.5 - 3.5) Performing Organization Address [facility] Phon e Number [address] [place] [address], [place] [address] GLUCOSE BY METER, POCT (01/29/2021 4:51 AM CDT) Pathologist Sig nature Glucose POC 173 (H) 70 - 99 mg/dL [facility] O POINT OF CARE TESTING Specimen Blood - Blood specimen (specimen) Performing Organization Address City/State/ZIP Code Phon e Number [facility] [address] [place] [address], [place] 581 04 OF CARE TESTING HEPARIN UNFRACTIONATED ANTI-XA (01/29/2021 12:34 AM CDT) Pathologist Sig nature Heparin Xa 0.48 0.30 - 0.[address] Unfractionated U/mL Specimen Blood - Blood specimen (specimen) Narrative Performed At [address] Therapeutic Range: 0.3 - 0.7 IU/mL Performing Organization Address City/State/ZIP Code Phon e Number [address] [place] [address], [place] [address] GLUCOSE BY METER, POCT (01/28/2021 8:55 PM CDT) Pathologist Sig nature Glucose POC 163 (H) 70 - 99 mg/dL [facility] POINT OF CARE TESTING Specimen Blood - Blood specimen (specimen) Performing Organization Address City/State/ZIP Code Phon e Number [facility] [address] [place] [address] 581 04 OF CARE TESTING HEPARIN UNFRACTIONATED ANTI-XA (01/28/2021 8:23 PM CDT) Heparin Xa 0.77 (H) 0.30 - 0.70 [place] [address] Unfractionated U/mL CLINIC Specimen Blood - Blood specimen (specimen) Narrative Performed At [address] Therapeutic Range: 0.3 - 0.7 IU/mL Performing Organization Address City/State/ZIP Code Phon e Number [address] [place] [address], [place] [address] HEPARIN UNFRACTIONATED ANTI-XA (01/28/2021 7:13 PM CDT) Heparin Xa 1.03 (H) 0.30 - 0.70 [place] [address] Unfractionated U/mL CLINIC Specimen Blood - Blood specimen (specimen) Narrative Performed At [address] Therapeutic Range: 0.3 - 0.7 IU/mL Performing Organization Address [facility]/ZIP Code Phon e Number [address] [place] [address], [place] [address] GLUCOSE BY METER, POCT (01/28/2021 5:58 PM CDT) Pathologist Sig nature Glucose POC 171 (H) 70 - 99 mg/dL [facility] POINT OF CARE TESTING Specimen Blood - Blood specimen (specimen) Performing Organization Address [facility] Code Phon e Number [facility] [address], [place] 581 04 OF CARE TESTING HEPARIN UNFRACTIONATED ANTI-XA (01/28/2021 5:42 PM CDT) Heparin Xa 0.17 (L) 0.30 - 0.70 [place] [address] Unfractionated U/mL CLINIC Specimen Blood - Blood specimen (specimen) Narrative Performed At [address] Therapeutic Range: 0.3 - 0.7 IU/mL Performing Organization Address [facility] Phon e Number [address] [place] [address] [place] [address] GLUCOSE BY METER, POCT (01/28/2021 11:47 AM CDT) Pathologist Sig nature Glucose POC 202 (H) 70 - 99 mg/dL [facility] POINT OF CARE TESTING Specimen Blood - Blood specimen (specimen) Performing Organization Address [facility] Code Phon e Number [facility] [address] [place] [address] 581 04 OF CARE TESTING HEPARIN UNFRACTIONATED ANTI-XA (01/28/2021 10:48 AM CDT) Pathologist Sig nature Heparin Xa 0.32 0.30 - 0.[address] Unfractionated U/mL Specimen Blood - Blood specimen (specimen) Narrative Performed At [address] Therapeutic Range: 0.3 - 0.7 IU/mL Performing Organization Address City/[facility]/ZIP Code Phon e Number [address] [place] [address] PROTIME/INR (01/28/2021 6:49 AM CDT) Pathologist Sig nature Protime 15.3 (H) 12.0 - 14.[address] INR 1.3 (H) 0.9 - 1.[address] Specimen Blood - Blood specimen (specimen) Narrative Performed At INR Standard Intensity = (2.0 - 3.0) [address] INR Higher Intensity = (2.5 - 3.5) Performing Organization Address [facility] Phon e Number [place] [address] CLINIC [address] [place] [address] GLUCOSE BY METER, POCT (01/28/2021 6:14 AM CDT) Pathologist Sig [facility] Glucose POC 173 (H) 70 - 99 mg/dL [facility] POINT OF CARE TESTING Specimen Blood - Blood specimen (specimen) Performing Organization Address [facility] Phon e Number [facility] POINT [address] [facility], [place] 581 04 OF CARE TESTING LAB ONLY-COMPLETE BLOOD COUNT WITH DIFFERENTIAL (01/28/2021 3:57 AM CDT) Pathologist Sig [facility] WBC 10.3 4.0 - 11.0 K/uL [address] RBC 3.22 (L) 4.40 - 5.[address] M/uL Hemoglobin 9.1 (L) 13.5 - 17.[address] g/dL Hematocrit 28.7 (L) 40.0 - 50.0 % [address] MCV 89.1 80.0 - 98.[address] MCH 28.3 25.5 - 34.[address] MCHC 31.7 31.5 - 36.[address] g/dL RDW-CV 13.2 11.5 - 15.5 % [address] RDW-SD 43.0 35.5 - 50.[address] Platelet Count 312 140 - 400 K/uL [address] MPV 9.5 8.5 - 12.[address] Seg Neut Absolute 8.3 (H) 1.8 - 8.0 K/uL [address] Lymphocytes Absolute 1.0 0.8 - 4.1 K/uL [place] [address] CLINI C Monocytes Absolute 0.7 0.0 - 1.0 K/uL [address] Eosinophils Absolute 0.2 0.0 - 0.7 K/uL [place] [address] CLINI C Basophil Absolute 0.0 0.0 - 0.2 K/uL [address] Immature Granulocyte 0.07 (H) 0.00 - 0.06 [place] [address] CLINIC Absolute K/uL Neutrophils Abs. 8,300 /uL [address] (Segs and Bands) Neutrophils Percent 80.9 % [address] Lymphocytes Percent 9.2 % [address] Monocytes Percent 7.1 % [address] Immature Granulocyte 0.7 % [address] Percent Eosinophils Percent 1.7 % [address] Basophil Percent 0.4 % [address] Nucleated RBC 0 /[address] Specimen Blood - Venous blood specimen (specimen) Performing Organization Address [facility] e Number [address] [place] [address] HEPARIN UNFRACTIONATED ANTI-XA (01/28/2021 3:57 AM CDT) Pathologist Sig nature Heparin Xa 0.36 0.30 - 0.[address] Unfractionated U/mL Specimen Blood - Blood specimen (specimen) Narrative Performed At [address] Therapeutic Range: 0.3 - 0.7 IU/mL Performing Organization Address [facility] e Number [address] [address] BASIC METABOLIC PANEL (01/28/2021 3:57 AM CDT) Pathologist Sig nature Glucose 183 (H) 70 - 100 mg/dL [address] BUN 17 6 - 22 mg/dL [address] Creatinine 1.27 0.80 - 1.[address] mg/dL BUN/Creatinine Ratio 13.4 10.0 - 25.[address] Sodium 141 135 - 145 meq/L [address] Potassium 4.1 3.5 - 5.3 meq/L [address] Chloride 108 99 - 110 meq/L [address] CO2 24 20 - 29 meq/L [address] Anion Gap with K 13 6 - 20 meq/L [address] Calcium 8.8 8.5 - 10.5 mg/dL [address] Age [address] eGFR Non- 54 (L) >=[address] Italian mL/min/1.73m2 eGFR 65 >=[address] mL/min/1.73m2 Specimen Blood - Venous blood specimen (specimen) Performing Organization Address City/[facility] Phon e Number [address] [place] [address] GLUCOSE BY METER, POCT (01/27/2021 9:10 PM CDT) Pathologist Sig nature Glucose POC 162 (H) 70 - 99 mg/dL [facility] POINT OF CARE TESTING Specimen Blood - Blood specimen (specimen) Performing Organization Address [facility] Phon e Number [facility] [address] [place] [address] 581 04 OF CARE TESTING HEPARIN UNFRACTIONATED ANTI-XA (01/27/2021 8:50 PM CDT) Heparin Xa 0.27 (L) 0.30 - 0.70 [place] [address] Unfractionated U/mL CLINIC Specimen Blood - Blood specimen (specimen) Narrative Performed At [address] Therapeutic Range: 0.3 - 0.7 IU/mL Performing Organization Address [facility] Phon e Number [address] [place] [address] GLUCOSE BY METER, POCT (01/27/2021 5:13 PM CDT) Pathologist Sig nature Glucose POC 236 (H) 70 - 99 mg/dL [facility] POINT OF CARE TESTING Specimen Blood - Blood specimen (specimen) Performing Organization Address [facility] Phon e Number [facility] [address] [place] [address] 581 04 OF CARE TESTING LOOP RECORDER IMPLANT EP LAB (01/27/2021 3:50 PM CDT) Narrative Performed At This result has an attachment that is no t available. Adam Jones MD 01/27/2021 3:51 PM [facility] ELECTROPHYSIOLOGY PROCEDURE NOTE PROCEDURE: LINQ Loop Recorder Implantation Drafting Teacher: Adam Jones MD Date: 01/27/21 INDICATION: Short SVT, NSVT, AV block pauses - to [facility] for future various arrythmias and pauses PROCEDURE: The patient was brought to the [facility] Aru prep room . After informed consent was obtained, the patient was prepped and draped in the usual sterile manner. Next, the le ft 4th intercostal region lateral to the left sternal margin was anesthetized with 1% Xylocaine solution. A blade was u sed to make approximately a 1/4-inch incision in the skin. A himanshue ling tool was introduced. Next a LINQ Loop Recorder was injected into the pocket. The skin was closed with dermabond Incision wa s covered with a Primapore dressing/bandaid. The patient tolerat ed the procedure well with no apparent complications. Specime ns removed-none. Blood loss- 5 cc or less. ASSESSMENT: 1. Successful LINQ Loop Recorder implantation PLAN: The patient will be observed an hour post proced ure. The patient is to monitor the incision site for signs of i nfection or bleeding. The patient is to follow up in pacemaker cli beata in 2 weeks for incision check and device interrogation. Performing Organization Address [facility]/ZIP Code Phon e Number [facility] [place], [place] HEPARIN UNFRACTIONATED ANTI-XA (01/27/2021 2:17 PM CDT) Pathologist Sig [facility] Heparin Xa 0.41 0.30 - 0.[address] Unfractionated U/mL Specimen Blood - Blood specimen (specimen) Narrative Performed At [address] Therapeutic Range: 0.3 - 0.7 IU/mL Performing Organization Address [facility]/ZIP Code Phon e Number [place] [address] CLINIC [address] [place] [address] GLUCOSE BY METER, POCT (01/27/2021 10:54 AM CDT) Pathologist Sig [facility] Glucose POC 180 (H) 70 - 99 mg/dL [facility] POINT OF CARE TESTING Specimen Blood - Blood specimen (specimen) Performing Organization Address [facility]/ZIP Code Phon e Number [facility] POINT [address] [facility], [place] [address] HEAD WITHOUT CONTRAST (01/27/2021 10:39 AM CDT) Specimen Narrative Performed At This result has an attachment that is no t available. [id number] Patient Name: EDDIE MARIO Date of : 1935 Procedure: CT HEAD WITHOUT CONTRAST Date of Service: 01/27/2021 EXAM: CT HEAD WITHOUT CONTRAST INDICATION: Stroke, follow up TECHNIQUE: CT of the brain performed without IV contra st. COMPARISON(S): 01/23/2021 FINDINGS: There is no acute intra or extra axial f luid collection. The known small infarcts seen within the right asya on MRI are not well depicted on current CT examination. The ventricles are of normal size, sh ape, and position. There are areas of hy poattenuation within the cerebral white matter, most consistent with chronic small vessel disease. No mass effect or midline shift is present. The visualized port ions of the orbits, paranasal sinuses, a nd mastoids are normal. No fractures are identified. IMPRESSION: 1. No acute intracranial hemorrhage. 2. Known small infarcts within the carissa s, as depicted on recent MRI, are not well appreciated on current CT. Finalized by: Ryan Lentz MD on 01/27/2021 10:55 AM CDT Patient/Procedure Information: [facility] MRN/JR: [id number] Order Number: [id number] Accession Number: [id number] Ordering Provider: ASYA FERNANDEZ Authorizing Provider: ASYA FERNANDEZ Procedure Note Interface, Radiantres - 01/27/2021 10:58 AM CDT Patient Name: EDDIE MARIO Date of : 1935 Procedure: CT HEAD WITHOUT CONTRAST Date of Service: 01/27/2021 EXAM: CT HEAD WITHOUT CONTRAST INDICATION: Stroke, follow up TECHNIQUE: CT of the brain performed wit hout IV contrast. COMPARISON(S): 01/23/2021 FINDINGS: There is no acute intra or extra axial f luid collection. The known small infarcts seen within the right asya on MRI are not well depicted on current CT examination. The ventricles are of normal size, shape, and position. There are areas of hypoattenua tion within the cerebral white matter, most consistent with chronic small vessel disease. No mass effect or midline shift is present. The visualized portions of the orbits, paranasal sinuses, and mastoids are norm al. No fractures are identified. IMPRESSION: 1. No acute intracranial hemorrhage. 2. Known small infarcts within the asya , as depicted on recent MRI, are not well appreciated on current CT. Finalized by: Ryan Lentz MD on 2020 10:55 AM CDT Patient/Procedure Information: [facility] MRN/JR: [id number] Order Number: [id number] Accession Number: [id number] Ordering Provider: ASYA FERNANDEZ Authorizing Provider: ASYA FERNANDEZ Performing Organization Address [facility] Phon e Number [id number] HEPARIN UNFRACTIONATED ANTI-XA (01/27/2021 7:36 AM CDT) Heparin Xa 0.27 (L) 0.30 - 0.70 [place] [address] Unfractionated U/mL CLINIC Specimen Blood - Blood specimen (specimen) Narrative Performed At [address] Therapeutic Range: 0.3 - 0.7 IU/mL Performing Organization Address [facility] Phon e Number [address] [place] [address], [place] [address] PROTIME/INR (01/27/2021 7:36 AM CDT) Pathologist Sig nature Protime 14.5 12.0 - 14.[address] INR 1.2 (H) 0.9 - 1.[address] Specimen Blood - Blood specimen (specimen) Narrative Performed At INR Standard Intensity = (2.0 - 3.0) [address] INR Higher Intensity = (2.5 - 3.5) Performing Organization Address [facility] Phon e Number [address] [place] [address], [place] [address] GLUCOSE BY METER, POCT (01/27/2021 5:12 AM CDT) Pathologist Sig nature Glucose POC 175 (H) 70 - 99 mg/dL [facility] POINT OF CARE TESTING Specimen Blood - Blood specimen (specimen) Performing Organization Address [facility]/ZIP Code Phon e Number [facility] [address], [place] 581 04 OF CARE TESTING HEPARIN UNFRACTIONATED ANTI-XA (01/27/2021 1:27 AM CDT) Pathologist Sig nature Heparin Xa 0.36 0.30 - 0.[address] Unfractionated U/mL Specimen Blood - Blood specimen (specimen) Narrative Performed At [address] Therapeutic Range: 0.3 - 0.7 IU/mL Performing Organization Address [facility]/ZIP Code Phon e Number [address] [place] [address] GLUCOSE BY METER, POCT (01/26/2021 9:55 PM CDT) Pathologist Sig nature Glucose POC 217 (H) 70 - 99 mg/dL [facility] POINT OF CARE TESTING Specimen Blood - Blood specimen (specimen) Performing Organization Address [facility]/ZIP Code Phon e Number [facility] [address] [place] [address] 581 04 OF CARE TESTING HEPARIN UNFRACTIONATED ANTI-XA (01/26/2021 6:37 PM CDT) Heparin Xa 0.26 (L) 0.30 - 0.70 [place] [address] Unfractionated U/mL CLINIC Specimen Blood - Blood specimen (specimen) Narrative Performed At [address] Therapeutic Range: 0.3 - 0.7 IU/mL Performing Organization Address [facility]/ZIP Code Phon e Number [address] [place] [address] GLUCOSE BY METER, POCT (01/26/2021 5:28 PM CDT) Pathologist Sig nature Glucose POC 182 (H) 70 - 99 mg/dL [facility] POINT OF CARE TESTING Specimen Blood - Blood specimen (specimen) Performing Organization Address City/[facility]/ZIP Code Phon e Number [facility] [address], [place] 581 04 OF CARE TESTING PROTIME/INR (01/26/2021 12:30 PM CDT) Pathologist Sig nature Protime 14.8 (H) 12.0 - 14.[address] INR 1.2 (H) 0.9 - 1.[address] Specimen Blood - Blood specimen (specimen) Narrative Performed At INR Standard Intensity = (2.0 - 3.0) [address] INR Higher Intensity = (2.5 - 3.5) Performing Organization Address [facility]/ZIP Code Phon e Number [address] [place] [address], [place] [address] HEPARIN UNFRACTIONATED ANTI-XA (01/26/2021 12:30 PM CDT) Heparin Xa 0.29 (L) 0.30 - 0.70 [place] [address] Unfractionated U/mL CLINIC Specimen Blood - Blood specimen (specimen) Narrative Performed At [address] Therapeutic Range: 0.3 - 0.7 IU/mL Performing Organization Address [facility] Phon e Number [address] [place] [address], [place] [address] GLUCOSE BY METER, POCT (01/26/2021 11:27 AM CDT) Pathologist Sig nature Glucose POC 167 (H) 70 - 99 mg/dL [facility] POINT OF CARE TESTING Specimen Blood - Blood specimen (specimen) Performing Organization Address [facility]/ZIP [facility] Phon e Number [facility] PO[facility] [address] [place] [address], [place] 581 04 OF CARE TESTING LAB ONLY-COMPLETE BLOOD COUNT WITH DIFFERENTIAL (01/26/2021 5:21 AM CDT) Pathologist Sig nature WBC 11.5 (H) 4.0 - 11.0 K/uL [address] RBC 3.03 (L) 4.40 - 5.[address] M/uL Hemoglobin 9.0 (L) 13.5 - 17.[address] g/dL Hematocrit 27.7 (L) 40.0 - 50.0 % [address] MCV 91.4 80.0 - 98.[address] MCH 29.7 25.5 - 34.[address] MCHC 32.5 31.5 - 36.[address] g/dL RDW-CV 13.2 11.5 - 15.5 % [address] RDW-SD 43.9 35.5 - 50.[address] Platelet Count 285 140 - 400 K/uL [address] MPV 9.8 8.5 - 12.[address] Seg Neut Absolute 9.3 (H) 1.8 - 8.0 K/uL [address] Lymphocytes Absolute 0.9 0.8 - 4.1 K/uL [place] [address] CLINI [address] Monocytes Absolute 0.8 0.0 - 1.0 K/uL [address] Eosinophils Absolute 0.3 0.0 - 0.7 K/uL [place] [address] CLINI C Basophil Absolute 0.1 0.0 - 0.2 K/uL [address] Immature Granulocyte 0.09 (H) 0.00 - 0.[address] Absolute K/uL Neutrophils Abs. 9,300 /uL [address] (Segs and Bands) Neutrophils Percent 80.7 % [address] Lymphocytes Percent 8.1 % [address] Monocytes Percent 7.3 % [address] Immature Granulocyte 0.8 % [address] Percent Eosinophils Percent 2.7 % [address] Basophil Percent 0.4 % [address] Nucleated RBC 0 /[address] Specimen Blood - Venous blood specimen (specimen) Performing Organization Address [facility] Phon e Number [address] [place] [address] HEPARIN UNFRACTIONATED ANTI-XA (01/26/2021 5:21 AM CDT) Heparin Xa 0.19 (L) 0.30 - 0.70 [place] [address] Unfractionated U/mL CLINIC Specimen Blood - Blood specimen (specimen) Narrative Performed At [address] Therapeutic Range: 0.3 - 0.7 IU/mL Performing Organization Address [facility] Phon e Number [address] [place] [address], [place] [address] BASIC METABOLIC PANEL (01/26/2021 5:21 AM CDT) Pathologist Sig nature Glucose 178 (H) 70 - 100 mg/dL [address] BUN 19 6 - 22 mg/dL [address] Creatinine 1.11 0.80 - 1.[address] mg/dL BUN/Creatinine Ratio 17.1 10.0 - 25.[address] Sodium 140 135 - 145 meq/L [address] Potassium 4.1 3.5 - 5.3 meq/L [address] Chloride 110 99 - 110 meq/L [address] CO2 22 20 - 29 meq/L [address] Anion Gap with K 12 6 - 20 meq/L [address] Calcium 8.4 (L) 8.5 - 10.5 mg/dL [address] Age [address] eGFR Non- 63 >=[address] Italian mL/min/1.73m2 eGFR 76 >=[address] mL/min/1.73m2 Specimen Blood - Venous blood specimen (specimen) Performing Organization Address City/[facility]/ZIP Code Phon e Number [address] [place] [address] GLUCOSE BY METER, POCT (01/26/2021 5:08 AM CDT) Pathologist Sig nature Glucose POC 159 (H) 70 - 99 mg/dL [facility] O POINT OF CARE TESTING Specimen Blood - Blood specimen (specimen) Performing Organization Address City/[facility]/ZIP Code Phon e Number [facility] PO[facility] [address] [place] [address], [place] 581 04 OF CARE TESTING HEPARIN UNFRACTIONATED ANTI-XA (01/25/2021 7:52 PM CDT) Heparin Xa <=0.10 (L) 0.30 - 0.70 [place] [address] Unfractionated U/mL CLINIC Specimen Blood - Blood specimen (specimen) Narrative Performed At [address] Therapeutic Range: 0.3 - 0.7 IU/mL Performing Organization Address City/State/ZIP Code Phon e Number [address] [place] [address] GLUCOSE BY METER, POCT (01/25/2021 7:46 PM CDT) Pathologist Sig nature Glucose POC 166 (H) 70 - 99 mg/dL [facility] O POINT OF CARE TESTING Specimen Blood - Blood specimen (specimen) Performing Organization Address City/[facility]/ZIP Code Phon e Number [facility] [address] [place] [address], [place] 5[address] 04 OF CARE TESTING GLUCOSE BY METER, POCT (01/25/2021 4:55 PM CDT) Pathologist Sig nature Glucose POC 201 (H) 70 - 99 mg/dL [facility] POINT OF CARE TESTING Specimen Blood - Blood specimen (specimen) Performing Organization Address [facility] Phon e Number [facility] [address] [place] [address] 581 04 OF CARE TESTING HEPARIN UNFRACTIONATED ANTI-XA (01/25/2021 1:57 PM CDT) Pathologist Sig nature Heparin Xa 0.38 0.30 - 0.[address] Unfractionated U/mL Specimen Blood - Blood specimen (specimen) Narrative Performed At [address] Therapeutic Range: 0.3 - 0.7 IU/mL Performing Organization Address [facility] Code Phon e Number [address] [place] [address] EKG to be done 3 hours post coronary intervention (01/25/2021 12:48 PM CDT)Only the most recent of3 resultswithin the time period is included. Pathologist Sig nature EKG WAVEFORM [employer] Sinus rhythm with Premature atrial complexes in a phoenix gricel of bigeminy Minimal voltage criteria for LVH, may be normal varian t ( Sokolow-Barnes ) Ventricular Rate: 63 BPM Atrial Rate: 63 BPM P-R Interval: 174 ms QRS Duration: 84 ms Q-T Interval: 414 ms QTc Calculation(Bazett): 423 ms Calculated P Temple: 28 degrees Calculated R Temple: -2 degrees Calculated T Temple: 79 degrees Specimen Narrative Performed At This result has an attachment that is no t available. Performing Organization Address [facility] Code Phon e Number [employer] HEPARIN UNFRACTIONATED ANTI-XA (01/25/2021 12:24 PM CDT) Heparin Xa 0.92 (H) 0.30 - 0.70 [place] [address] Unfractionated U/mL CLINIC Specimen Blood - Blood specimen (specimen) Narrative Performed At [place] [address] CLINIC Therapeutic Range: 0.3 - 0.7 IU/mL Performing Organization Address City/[facility]/ZIP Code Phon e Number [place] [address] [place] [address] GLUCOSE BY METER, POCT (01/25/2021 11:18 AM CDT) Pathologist Sig nature Glucose POC 160 (H) 70 - 99 mg/dL [facility] O POINT OF CARE TESTING Specimen Blood - Blood specimen (specimen) Performing Organization Address City/[facility]/ZIP Code Phon e Number [facility] [address] [place], [place] 5[address] 04 OF CARE TESTING Cardiac Cath Possible Angioplasty Stent Cloud Operations Engineer - Left (01/25/2021 9:17 AM CDT) Specimen Narrative Performed At This result has an attachment that is no t available. [facility] Patient: EDDIE MARIO [facility] Exam Date: 01/25/[address] Exam Time: 09:17 AM-09:43 [place] [address] Department of Interventional Cardiology Cardiac Interventional Report, Diagnostic Heart Cathet erization Report : 1935 Fluoro Time: 17.1 min. Patient Status: Inpatient Age: 85 year(s) Cath Status: Patient Room: [facility] Gender: Male Referring Physician: EDDIE CHEEMA Diagnostic Scout: MALLORY NEAL MD Chemical Worker: MALLORY NEAL MD Indication: LV thrombus. stroke. Interventional Conclusions: Interventional Summary Distal left anterior descending: A succe ssful Drug Eluting Stent was deployed using a RUNTHROUGH XT FLOPPY using a RESOLUTE LAURO [id number] . Second diagonal: A successful Balloon angioplasty was performed using a EUPHORA 2.5X15 RX using a GDWIRE FIE LDER FC 180CM. Procedures Performed: Art Access - R radial artery. Fluoro 0.1 -60 Minutes. Medication/Infusion/Drip. Selective Lt Coronary Angiography. Selective Rt Coronary Angiography. Drug Eluting Stent Placement. PTCA. PTCA Additional. Radial Artery Compression Device. Diagnostic Findings: Coronary Angiography The coronary circulation is right dominant. Left Main Left main artery: The segment is large. Angiography sh ows no disease. Left Anterior Descending Left anterior descending artery: The seg ment is large. Proximal left anterior descending: There is a 30 % stenosis. Mid left anterior descending: There is a 50 % phil nosis. Distal left anterior descending: There is a 95 % stenosis. First diagonal: The segment is small. medical treatment is recommended for this lesion. There is an 80 % stenosis. Circumflex Circumflex artery: The segment is modera tely sized. Angiography shows no disease. First obtuse marginal: There is a 20 % stenosis. Right Coronary Right coronary artery: The segment is la rge. Angiography shows no disease. Mid right coronary artery: There is a 50 % stenosis. Right posterior descending art lina: The segment is large. Angiography shows moderate diffuse disease. Medical treatment is recommended for this vessel .. Right Posterolateral Segment: The segment is moderately sized. There is a 40 % stenosis in the proximal portion of the segment. Left Heart Cath Ejection fraction was not calculated. Interventional Findings: Interventional Details Distal left anterior descending: The ini tial stenosis was 95 %. This was an ACC/AHA High/C lesion for intervention. Guidewire crossing was successful. A successful Drug Eluting Stent was depl oyed using a CATH GUIDE 6FR LAUNCHER EBU3.5 during setup, a RUNTHROUGH XT FLOPPY During Procedure, a nd a RESOLUTE LAURO [id number] During Procedure. The total number of attempt(s) was 1. Th e maximum inflation pressure was 12(hunter). A successful Balloon angioplasty was per formed using a NC EUPHORA RX 2.5X15 During Procedure. The total number of attempt(s) was 6. Th e maximum inflation pressure was 16(hunter). Following intervention there is a 0 % re sidual stenosis. There was ROGERIO Flow 3 before the procedure and ROGERIO Flow 3 following the procedure. No significant vessel dissection noted. There was no perforation at the intervention site. The intervened vessel did not close acutely. Second diagonal: The initial stenosis wa s 70 %. This was an ACC/AHA Non-High/Non C lesion for intervention. Guidewire crossing was successful. A successful Balloon angioplasty was per formed using a CATH GUIDE 6FR LAUNCHER EBU3.5 during setup, a EUPHORA 2.5X15 RX During Procedure, and a GDWIRE FIELDER FC 180CM During Procedure. The total number of attempt(s) was 1. Th e maximum inflation pressure was 16(hunter). Following intervention there is a 0 % re sidual stenosis. There was ROGERIO Flow 3 before the procedure and ROGERIO Flow 3 following the procedure. No significant vessel dissection noted. There was no perforation at the intervention site. The intervened vessel did not close acutely. Procedure Narrative: Access Right radial artery: The puncture site was infiltrated with 1 % Lidocaine. Vascular access was obtained and a 6FR GLIDESHEATH 25CM was advanced into the vessel. Hemostasis/Sheath Status: Hemostasis was successful using a(n) RADIAL TR BAND. Coronary Angiography Left Coronary System: A catheter was positioned into the Vesse l Ostium under fluoroscopic guidance. Contrast injections were performed using hand injection. Angiograms were obtain ed in multiple views. Right Coronary System: A catheter was positioned into the Vesse l Ostium under fluoroscopic guidance. Contrast injections were performed using hand injection. Angiograms were obtain ed in multiple views. Hemodynamic Impressions General Impressions: Hemodynamic assessm ent demonstrates No systemic hypertension. Hemodynamic Findings Pressures: Baseline: AO pressure 149/58mmHg, mean 10 5. Hemodynamic Pressures-Phase: Baseline Location : Ao Pressure s : 149 mmHg Pressure d : 58 mmHg Pressure m : 105 mmHg HR : 56 bpm Flow Calculations, Phase: Baseline VO2: 262.14 ml/min Shunts Acute complication: No complications Contrast: Description Dose Unit HIS No. Reference No. Serial No. Lot No. Omnipaque 165. [id number] ml C34 C34 Ordering Physician: ALIZA RODRIGUEZ MD [facility] CCL Rn Circulating: DAMON BOONE RN Scrub: Anca URBINA CIS Monitor: MIKEY BURTON Director Clinical Information Services: RT YURI(R) Primary Scout: ALIZA RODRIGUEZ MD [facility] Diagnostic Physician Signature: Electronically signed by MALLORY NEAL MD on at 09:39 AM (No Signature Object) Interventional Physician Signature: Electronically signed by MALLORY NEAL MD on at 09:39 AM (No Signature Object) Procedure Note Interface, Inc Results No Pull Forward - 01/27/2021 9:40 AM CDT Patient: EDDIE MARIO [facility] Exam Date: 01/25/[address] Exam T walter: 09:17 AM-09:43 AM JARRELL Pillai [id number] [facility] Cardiac Interventional Report, Diagnosti c Heart Catheterization Report : 1935 Fluoro Time: 17.1 min. Patient Status: Inpatient Age: 85 year(s) Cath Status: Patient Room: [facility] Gender: Male Referring Physician: EDDIE REYESKarla Diagnostic Scout: MALLORY CARO MD Chemical Worker: MALLORY CARO MD Indication: LV thrombus. stroke. Interventional Conclusions: Interventional Summary Distal left anterior descending: A succe ssful Drug Eluting Stent was deployed using a RUNTHROUGH XT FLOPPY using a RESOLUTE LAURO [id number] . Second diagonal: A successful Balloon angioplasty was performed using a EUPHORA 2.5X15 RX usin g a GDWIRE FIELDER FC 180CM. Procedures Performed: Art Access - R radial artery. Fluoro 0.1 -60 Minutes. Medication/Infusion/Drip. Selective Lt Coronary Angiography. Selective Rt Coronary Angiography. Drug Eluting Stent Placement. PTCA. PTCA Additional. Radial Artery Compression Device. Diagnostic Findings: Coronary Angiography The coronary circulation is right domina nt. Left Main Left main artery: The segment is large. Angiography shows no disease. Left Anterior Descending Left anterior descending artery: The seg ment is large. Proximal left anterior descending: There is a 30 % stenosis. Mid left anterior descending: There is a 50 % phil nosis. Distal left anterior descending: There is a 95 % stenosis. First diagonal: The segment is small. medical treatment is recommended for this lesion. There is an 80 % stenosis. Circumflex Circumflex artery: The segment is modera tely sized. Angiography shows no disease. First obtuse marginal: There is a 20 % stenosis. Right Coronary Right coronary artery: The segment is la rge. Angiography shows no disease. Mid right coronary artery: There is a 50 % stenosis. Right posterior descending art lina: The segment is large. Angiography shows moderate diffuse disease. Medical treatment is recommended for this vessel .. Right Posterolateral Segment: The segment is moderately sized. There is a 40 % stenosis in the proximal portion of th e segment. Left Heart Cath Ejection fraction was not calculated. Interventional Findings: Interventional Details Distal left anterior descending: The ini tial stenosis was 95 %. This was an ACC/AHA High/C lesion for intervention. Guidewire crossing was successful. A successful Drug Eluting Stent was depl oyed using a CATH GUIDE 6FR LAUNCHER EBU3.5 during setup, a RUNTHROUGH XT FLOPPY During Procedure, a nd a RESOLUTE LAURO [id number] During Procedure. The total number of attempt(s) was 1. Th e maximum inflation pressure was 12(hunter). A successful Balloon angioplasty was per formed using a NC EUPHORA RX 2.5X15 During Procedure. The total number of attempt(s) was 6. Th e maximum inflation pressure was 16(hunter). Following intervention there is a 0 % re sidual stenosis. There was ROGERIO Flow 3 before the procedure and ROGERIO Flow 3 following the procedure. No significant vessel dissection noted. There was no perforation at the intervention site. The intervened vessel did not close acutely. Second diagonal: The initial stenosis wa s 70 %. This was an ACC/AHA Non-High/Non C lesion for intervention. Guidewire crossing was successful. A successful Balloon angioplasty was per formed using a CATH GUIDE 6FR LAUNCHER EBU3.5 during setup, a EUPHORA 2.5X15 RX During Procedure, and a GDWIRE FIELDER FC 180CM During Procedure. The total number of attempt(s) was 1. Th e maximum inflation pressure was 16(hunter). Following intervention there is a 0 % re sidual stenosis. There was ROGERIO Flow 3 before the procedure and ROGERIO Flow 3 following the procedure. No significant vessel dissection noted. There was no perforation at the intervention site. The intervened vessel did not close acutely. Procedure Narrative: Access Right radial artery: The puncture site was infiltrated with 1 % Lidocaine. Vascular access was obtained and a 6FR GLIDESHEATH 25CM was advanced into the v essel. Hemostasis/Sheath Status: Hemostasis was successful using a(n) RADIAL TR BAND. Coronary Angiography Left Coronary System: A catheter was positioned into the Vesse l Ostium under fluoroscopic guidance. Contrast injections were performed using hand injection. Angiogra ms were obtained in multiple views. Right Coronary System: A catheter was positioned into the Vesse l Ostium under fluoroscopic guidance. Contrast injections were performed using hand injection. Angiogra ms were obtained in multiple views. Hemodynamic Impressions General Impressions: Hemodynamic assessm ent demonstrates No systemic hypertension. Hemodynamic Findings Pressures: Baseline: AO pressure 149/58 mmHg, mean 105. Hemodynamic Pressures-Phase: Baseline Location : Ao Pressure s : 149 mmHg Pressure d : 58 mmHg Pressure m : 105 mmHg HR : 56 bpm Flow Calculations, Phase: Baseline VO2: 262.14 ml/min Shunts Acute complication: No complicatio ns Contrast: Description Dose Un it HIS No. Reference No. Serial No. Lot No. Omnipaque 165.000 ml C34 C34 Ordering Physician: ALIZA RODRIGUEZ MD [facility] CCL Rn Circulating: DAMON MEDLEY RN Scrub: RADHA Claudio, ASSEMBLER TRIM Monitor: MIKEY BURTON Director Clinical Information Services: SHIVAM AZEVEDO , RT(R) Primary Scout: ALIZA RODRIGUEZ MD [facility] Diagnostic Physician Signature: (No Signature Object) Interventional Physician Signature: (No Signature Object) Performing Organization Address City/State/ZIP Code Phon e Number [facility] [place], [place] LAB ONLY-COMPLETE BLOOD COUNT WITH DIFFERENTIAL (01/25/2021 6:34 AM CDT) Pathologist Sig nature WBC 14.0 (H) 4.0 - 11.0 K/uL [address] RBC 3.20 (L) 4.40 - 5.[address] M/uL Hemoglobin 9.1 (L) 13.5 - 17.[address] g/dL Hematocrit 28.5 (L) 40.0 - 50.0 % [address] MCV 89.1 80.0 - 98.[address] MCH 28.4 25.5 - 34.[address] MCHC 31.9 31.5 - 36.[address] g/dL RDW-CV 13.2 11.5 - 15.5 % [address] RDW-SD 43.1 35.5 - 50.[address] Platelet Count 226 140 - 400 K/uL [address] MPV 9.3 8.5 - 12.[address] Seg Neut Absolute 11.8 (H) 1.8 - 8.0 K/uL [address] Lymphocytes Absolute 0.9 0.8 - 4.1 K/uL [place] [address] [facility] Monocytes Absolute 0.9 0.0 - 1.0 K/uL [address] Eosinophils Absolute 0.2 0.0 - 0.7 K/uL [place] [address] [facility] Basophil Absolute 0.1 0.0 - 0.2 K/uL [address] Immature Granulocyte 0.14 (H) 0.00 - 0.[address] Absolute K/uL Neutrophils Abs. 11,800 /uL [address] (Segs and Bands) Neutrophils Percent 84.1 % [address] Lymphocytes Percent 6.2 % [address] Monocytes Percent 6.7 % [address] Immature Granulocyte 1.0 % [address] Percent Eosinophils Percent 1.6 % [address] Basophil Percent 0.4 % [address] Nucleated RBC 0 /[address] Specimen Blood - Venous blood specimen (specimen) Performing Organization Address [facility] Phon e Number [address] [place] [address] HEPARIN UNFRACTIONATED ANTI-XA (01/25/2021 6:34 AM CDT) Heparin Xa 0.18 (L) 0.30 - 0.70 [place] [address] Unfractionated U/mL CLINIC Specimen Blood - Blood specimen (specimen) Narrative Performed At [address] Therapeutic Range: 0.3 - 0.7 IU/mL Performing Organization Address [facility] Phon e Number [address] [place] [address], [place] [address] BASIC METABOLIC PANEL (01/25/2021 6:34 AM CDT) Pathologist Sig nature Glucose 182 (H) 70 - 100 mg/dL [address] BUN 25 (H) 6 - 22 mg/dL [address] Creatinine 1.15 0.80 - 1.[address] mg/dL BUN/Creatinine Ratio 21.7 10.0 - 25.[address] Sodium 140 135 - 145 meq/L [address] Potassium 4.1 3.5 - 5.3 meq/L [address] Chloride 109 99 - 110 meq/L [address] CO2 22 20 - 29 meq/L [address] Anion Gap with K 13 6 - 20 meq/L [address] Calcium 8.5 8.5 - 10.5 mg/dL [address] Age [address] eGFR Non- 60 >=[address] Italian mL/min/1.73m2 eGFR 73 >=[address] mL/min/1.73m2 Specimen Blood - Venous blood specimen (specimen) Performing Organization Address City/[facility]/ZIP Code Phon e Number [address] [place] [address] GLUCOSE BY METER, POCT (01/25/2021 5:40 AM CDT) Pathologist Sig nature Glucose POC 171 (H) 70 - 99 mg/dL [facility] O POINT OF CARE TESTING Specimen Blood - Blood specimen (specimen) Performing Organization Address City/[facility]/ZIP Code Phon e Number [facility] POINT [address] [facility] [place] 5[address] OF CARE TESTING HEPARIN UNFRACTIONATED ANTI-XA (01/24/2021 10:12 PM CDT) Heparin Xa <=0.10 (L) 0.30 - 0.70 [place] [address] Unfractionated U/mL CLINIC Specimen Blood - Blood specimen (specimen) Narrative Performed At [address] Therapeutic Range: 0.3 - 0.7 IU/mL Performing Organization Address City/State/ZIP Code Phon e Number [address] [place] [address] GLUCOSE BY METER, POCT (01/24/2021 5:07 PM CDT) Pathologist Sig nature Glucose POC 232 (H) 70 - 99 mg/dL [facility] O POINT OF CARE TESTING Specimen Blood - Blood specimen (specimen) Performing Organization Address City/[facility]/ZIP Code Phon e Number [facility] POINT [address] [place] [address] OF CARE TESTING HEPARIN UNFRACTIONATED ANTI-XA (01/24/2021 3:19 PM CDT) Heparin Xa <=0.10 (L) 0.30 - 0.70 [place] [address] Unfractionated U/mL CLINIC Specimen Blood - Blood specimen (specimen) Narrative Performed At [address] Therapeutic Range: 0.3 - 0.7 IU/mL Performing Organization Address City/[facility] Phon e Number [place] [address] [facility] [place] [address] ECHO ADULT COMPLETE (01/24/2021 1:54 PM CDT) Specimen Narrative Performed At This result has an attachment that is no t available. [facility] Patient: EDDIE MARIO MR#: [id number] Exam Date: 01/24/2021 Transthoracic Echocardiogram [facility] [address] [place] [address] BP: 131/65 mmHg HR: 75 bpm : 1935 Exam Location: Bedside Height: 67.00 "(170.2 cm) Age: 85 year(s) Patient Room: [facility] Weight: 144 lbs.(65.32 kg) Gender: Male Patient Status: Inpatient BSA: 1.76 m2 Instructor Traffic Safety: NANDO HARRISON RD Reading Physician: MIHAELA GUERIN MD Ordering Physician: ANA CRISTINA FRIEDMAN DO Referring Physician: EDDIE CHEEMA Procedure Indication(s): Stroke Examination: TTE Complete 2D(m-mode), Complete Spectral Doppler, Color Doppler, with Contrast,Optison,Agitated saline Image Quality: Technically Difficult Exam Comments Dr. Guerin notified of LV thrombus 01/24/2021 at 1450. Conclusions Overall Conclusions This is an abnormal study. Left Ventricle: Normal left ventricular systolic functio n. The apical anterior and apical lateral wall segments are hypokinetic. The wall segments are akinetic. There is an apica l thrombus measuring 13 mm x 15 mm in the left ventricle. Recommendations: The [facility] physician was notified of these results Comparison Study Comparison Study: No previous echo was available for c omparison Findings Left Ventricle: Normal left ventricular size. Normal lef t ventricular wall thickness. Normal left ventricular systolic function. The ejection fraction is visually estimated to be 55 %. The apical anterior and apical lateral wall segments are hypokinetic. The apical septal, apical inferior and apex wall se gments are akinetic. Unable to assess left ventricular diastolic function. There is an apical thrombus measuring 13 mm x 15 mm in the left ve ntricle. Left Atrium: Dilated left atrium. Aortic Valve: The aortic valve is probably tricuspid. Moderate aortic cuspal thickening. Marked aortic cuspal calcification. Reduced aortic cuspal mobility. Trivial aortic regurgit ation. Moderate aortic stenosis. The peak valve velocity is 396 cm/s. Aortic valve mean gradient is 34 mmHg. Estimated aortic valve area (by V TI) is 1.3 cm-sq. Aorta: The sinus of valsalva is normal in size measuring 36.0 mm. The ascending aorta is normal in size measuring 38.0 mm. Mitral Valve: [id number]-izgspmoa mitral Leaflet thickeni ng. Mild mitral regurgitation. Multiple mitral regurgitant jets. No mitral stenosis. IAS: No evidence of an atrial shunt by agitated saline. Right Ventricle: Normal right ventricular size. Normal ri ght ventricular systolic function. Normal right ventricular wall thickness. TAPSE measures 23 mm. Tricuspid valve lateral annulus peak systolic velocity is 10.1 cm/sec. Pulmonary Artery: The tricuspid jet envelope definition is inadequate for estimation of RV systolic pressure. Pulmonary Vein: Normal pulmonary venous flow. Right Atrium: The right atrium was upper normal in size. Tricuspid Valve: Normal tricuspid valve structure. Trivia l tricuspid regurgitation. No significant tricuspid stenosis. Pulmonic Valve: Pulmonary valve not well visualized. Tri vial pulmonary regurgitation. No pulmonary stenosis. IVC: Normal IVC size with normal respirophasic changes. Pericardium: No significant pericardial effusion. There is pericard ial fat. Exam Details Image Quality: Technically D ifficult Measurements Left Ventricle Aortic Valve Label Value Normal Value Label Value Normal Value LVDd, 2D 47.4 mm LVOT Vmax 116 cm/s LVDs, 2D 34.3 mm LVOTd 25 mm IVSd, 2D 9.7 mm LVOT VTI 23.7 cm LVPWd, 2D 8.7 mm LVOT PGmax 5 mmHg FS, 2D 27.64 % AV Vmean 275 cm/s LVEDV, 2D 104 ml AV VTI 86.8 cm LVESV, 2D 48 ml AV PGmax 63 mmHg Cardiac Output 10.12 GEORGE (Vmax) 1.4 cm-sq L/min AV Vmax, Caliper 395 cm/s Cardiac Index 5.75 Obstructive Index 0.29 L/min/m-sq (V max) LVEDVI, 2D 59.1 ml/m 2 Obstruction Index 0.27 LVESVI, 2D 27.3 ml/m 2 (VTI) Stroke Index 76.7 ml/m- sq AV Vmax 396 cm/s Right Ventricle AV PGmean 34 mmHg Label Value Normal Value GEORGE (VTI) 1.3 cm-sq TAPSE 23 mm Mitral Valve S' Tissue Doppler 10.1 Label Value Normal Value cm/sec MV E Vmax 91 cm/s Left Atrium MV A Vmax 93 cm/s Label Value Normal Value MV E/A 0.98 LADs Long. 59 mm MV E/E' lateral 9.1 LA Volume Index 44.9 ml/m-sq MV E/E' septal 13.7 Aorta MV Dec Time 172 ms Label Value Normal Value MV E' septal 6.7 cm/s Ao Asc 38 mm MV E' lateral 10 cm/s Ao Sinus, 2D 36 mm Tricuspid Valve Great Vessels Label Value Normal Value Label Value Normal Value RA Pressure 3 mmHg PVein S 61 cm/s Pulmonic Valve PVein D 40 cm/s Label Value Normal Value S/D Ratio 1.5 PV Vm ax 95 cm/s Heart Rate PV PGmax 4 mmHg Label Value Norm al Value Heart Rate 75 bpm Contrast Details Contrast: 4.0 ml Optison is requested. The patient denies contraindications and gives verbal consent. Optison contrast (3 ml of activated Opti son diluted with 3 ml of saline) was used to evaluate left ventricular function to enhance endocardial borde r delineation Lot #: [id number] Wall Motion Scores -1 - Not Scored, 0 - Unknown, 1 - Normal or hyperkinesia, 2 - Hypokinesia, 3 - Akinesia, 4 - Dyskinesia, 5 - Aneurysm Procedure Note Interface, Inc Results No Pull Forward - 01/24/2021 3:07 PM CDT Patient: EDDIE MARIO MR#: [id number] Exam Date: 01/24/2021 Transthoracic Echocardiogram [facility] [address] [place] [address] BP: 131/65 mmHg HR: 75 bpm : 1935 Exa m Location: Bedside Height: 67.00 "(170.2 cm) Age: 85 year(s) Pat ient Room: [facility] Weight: 144 lbs.(65.32 kg) Gender: Male Pat ient Status: Inpatient BSA: 1.76 m2 Instructor Traffic Safety: NANDO ESCAMILLA MALATHI Reading Physician: MINGO GUERIN MD Ordering Physician: ANA CRISTINA LASSITER DO Referring Physician: EDDIE MCCRACKEN Procedure Indication(s): Stroke Examination: TTE Com plete 2D(m-mode), Complete Spectral Doppler, Color Doppler, with Contrast,Optison,Agitated saline Image Quality: Technic ally Difficult Exam Comments Dr. Alireza urbano notified of LV thrombus 01/24/2021 at 1450. Conclusions Overall Conclusions This is an abnormal study. Left Ventricle: Normal left ventricular systolic functio n. The apical anterior and apical lateral wall segments are hypokinetic. The wall segments are akinetic. There is an apica l thrombus measuring 13 mm x 15 mm in the left ventricle. Recommendations: The ordering physician was notified of these results Comparison Study Comparison Study: No previous echo was a vailable for comparison Findings Left Ventricle: Normal left ventricular size. Normal lef t ventricular wall thickness. Normal left ventricular systolic function. The ejection fraction is visually estimated to be 55 %. The apical anterior and apical lateral wall segments are hypokinetic. The apical septal, apical inferior and apex wall se gments are akinetic. Unable to assess left ventricular diastolic function. There is an apical thrombus measuring 13 mm x 15 mm in the left ventricle. Left Atrium: Dilated left atrium. Aortic Valve: The aortic valve is probably tricuspid. Moderate aortic cuspal thickening. Marked aortic cuspal calcification. Reduced aortic cuspal mobility. Trivial aortic regurgit ation. Moderate aortic stenosis. The peak valve velocity is 396 cm/s. Aortic valve mean gradient is 34 mmHg. Estimated aortic va lve area (by VTI) is 1.3 cm-sq. Aorta: The sinus of valsalva is normal in size measuring 36.0 mm. The ascending aorta is normal in size measuring 38.0 mm. Mitral Valve: Gctk-xx-odqmrvhy mitral Leaflet thickeni ng. Mild mitral regurgitation. Multiple mitral regurgitant jets. No mitral stenosis. IAS: No evidence of an atrial shunt by agitat ed saline. Right Ventricle: Normal right ventricular size. Normal ri ght ventricular systolic function. Normal right ventricular wall thickness. TAPSE measures 23 mm. Tricuspid valve lateral annulus peak systolic velocity is 10.1 cm/sec. Pulmonary Artery: The tricuspid jet envelope definition is inadequate for estimation of RV systolic pressure. Pulmonary Vein: Normal pulmonary venous flow. Right Atrium: The right atrium was upper normal in siz e. Tricuspid Valve: Normal tricuspid valve structure. Trivia l tricuspid regurgitation. No significant tricuspid stenosis. Pulmonic Valve: Pulmonary valve not well visualized. Tri vial pulmonary regurgitation. No pulmonary stenosis. IVC: Normal IVC size with normal respirophasi c changes. Pericardium: No significant pericardial effusion. The re is pericardial fat. Exam Details Image Quality: Technica ilda Difficult Measurements Left Ventricle Aortic Valve Label Value Nor mal Value Label Value Normal Value LVDd, 2D 47.4 mm LVOT Vmax 116 cm/s LVDs, 2D 34.3 mm LVOTd 25 mm IVSd, 2D 9.7 mm LVOT VTI 23.7 cm LVPWd, 2D 8.7 mm LVOT PGmax 5 mmHg FS, 2D 27.64 % AV Vmean 275 cm/s LVEDV, 2D 104 ml AV VTI 86.8 cm LVESV, 2D 48 ml AV PGmax 63 mmHg Cardiac Output 10.12 GEORGE (Vmax) 1.4 cm-sq L/min AV V max, Caliper 395 cm/s Cardiac Index 5.75 Obstructive Index 0.29 L/min/m-sq (V max) LVEDVI, 2D 59.1 ml/m2 Obstruction Index 0.27 LVESVI, 2D 27.3 ml/m2 (VTI) Stroke Index 76.7 ml/m-sq AV Vmax 396 cm/s Right Ventricle AV PGmean 34 mmHg Label Value Nor mal Value GEORGE (VTI) 1.3 cm-sq TAPSE 23 mm Mitral Valve S' Tissue Doppler 10.1 Label Value Normal Value cm/sec MV E Vmax 91 cm/s Left Atrium MV A Vmax 93 cm/s Label Value Nor mal Value MV E/A 0.98 LADs Long. 59 mm MV E/E' lateral 9.1 LA Volume Index 44.9 ml/m-sq MV E/E' septal 13.7 Aorta MV Dec Time 172 ms Label Value Nor mal Value MV E' septal 6.7 cm/s Ao Asc 38 mm MV E' lateral 10 cm/s Ao Sinus, 2D 36 mm Tricuspid Valve Great Vessels Label Value Normal Value Label Value Normal Value RA Pressure 3 m mHg PVein S 61 cm/s Pulmonic Valve PVein D 40 cm/s Label Value Normal Value S/D Ratio 1.5 PV Vmax 95 cm/s Heart Rate PV PGmax 4 mmHg Label Value Nor mal Value Heart Rate 75 bpm Contrast Details Contrast: 4.0 ml Optison is requested. The patient denies contraindications and gives verbal consent. Optison contrast (3 ml of activated Opti son diluted with 3 ml of saline) was used to evaluate left ventricular function to enhance end ocardial border delineation Lot #: [id number] Wall Motion Scores -1 - Not Scored, 0 - Unknown, 1 - Normal or hyperkinesia, 2 - Hypokinesia, 3 - Akinesia, 4 - Dyskinesia, 5 - Aneurysm Performing Organization Address City/State/ZIP Code Phon e Number [facility], [place] GLUCOSE BY METER, POCT (01/24/2021 11:20 AM CDT) Pathologist Sig nature Glucose POC 194 (H) 70 - 99 mg/dL [facility] O POINT OF CARE TESTING Specimen Blood - Blood specimen (specimen) Performing Organization Address City/State/ZIP Code Phon e Number [facility] [address] [place], [place] [address] OF CARE TESTING TROPONIN I (01/24/2021 8:08 AM CDT) Pathologist Sig nature Troponin I 0.047 (H) 0.000 - 0.033 ng/mL [facility] Specimen Blood - Blood specimen (specimen) Performing Organization Address City/State/ZIP Code Phon e Number [facility] [address] [facility] [place] [address] MAGNESIUM (01/24/2021 8:08 AM CDT) Pathologist Sig [facility] Magnesium 1.8 1.8 - 2.4 mg/dL [facility] Specimen Blood - Blood specimen (specimen) Performing Organization Address City/[facility]/ZIP Code Phon e Number [facility] [address] [place] [address] [phone] LAB ONLY-COMPLETE BLOOD COUNT WITH DIFFERENTIAL (01/24/2021 8:08 AM CDT) Pathologist Sig [facility] WBC 18.9 (H) 4.0 - 11.0 K/uL [address] RBC 3.16 (L) 4.40 - 5.[address] M/uL Hemoglobin 9.4 (L) 13.5 - 17.[address] g/dL Hematocrit 28.4 (L) 40.0 - 50.0 % [address] MCV 89.9 80.0 - 98.[address] MCH 29.7 25.5 - 34.[address] MCHC 33.1 31.5 - 36.[address] g/dL RDW-CV 13.0 11.5 - 15.5 % [address] RDW-SD 43.0 35.5 - 50.[address] Platelet Count 220 140 - 400 K/uL [address] MPV 9.8 8.5 - 12.[address] Seg Neut Absolute 16.5 (H) 1.8 - 8.0 K/uL [address] Lymphocytes Absolute 0.9 0.8 - 4.1 K/uL [place] [address] [facility] Monocytes Absolute 1.2 (H) 0.0 - 1.0 K/uL [address] Eosinophils Absolute 0.1 0.0 - 0.7 K/uL [place] [address] [facility] Basophil Absolute 0.0 0.0 - 0.2 K/uL [place] [address] [facility] Immature Granulocyte 0.17 (H) 0.00 - 0.[address] Absolute K/uL Neutrophils Abs. 16,500 /uL [address] (Segs and Bands) Neutrophils Percent 87.4 % [address] Lymphocytes Percent 4.5 % [address] Monocytes Percent 6.6 % [address] Immature Granulocyte 0.9 % [address] Percent Eosinophils Percent 0.4 % [address] Basophil Percent 0.2 % [address] Nucleated RBC 0 /[address] Specimen Blood - Blood specimen (specimen) Performing Organization Address [facility] Phon e Number [address] [place] [address] BASIC METABOLIC PANEL (01/24/2021 8:08 AM CDT) Pathologist Sig [facility] Glucose 236 (H) 70 - 100 mg/dL [address] BUN 31 (H) 6 - 22 mg/dL [address] Creatinine 1.37 (H) 0.80 - 1.[address] mg/dL BUN/Creatinine Ratio 22.6 10.0 - 25.[address] Sodium 137 135 - 145 meq/L [address] Potassium 4.3 3.5 - 5.3 meq/L [address] Chloride 108 99 - 110 meq/L [address] CO2 21 20 - 29 meq/L [address] Anion Gap with K 12 6 - 20 meq/L [address] Calcium 8.3 (L) 8.5 - 10.[address] mg/dL Age [address] eGFR Non- 49 (L) >=[address] Italian mL/min/1.73m2 eGFR 60 >=[address] mL/min/1.73m2 Specimen Blood - Blood specimen (specimen) Performing Organization Address [facility] Phon e Number [place] [address] [facility] [address] [place] [id number] LIPID PANEL (01/24/2021 8:08 AM CDT) Pathologist Sig nature Cholesterol 93 (L) 100 - 200 mg/dL [facility] Triglyceride 119 50 - 150 mg/dL [facility] HDL 17 (L) 40 - 80 mg/dL [facility] LDL 52 0 - 129 mg/dL [facility] Specimen Blood - Blood specimen (specimen) Performing Organization Address City/State/ZIP Code Phon e Number [facility] [address] [place] [place] [address] GLUCOSE BY METER, POCT (01/24/2021 6:02 AM CDT) Pathologist Sig nature Glucose POC 168 (H) 70 - 99 mg/dL [facility] O POINT OF CARE TESTING Specimen Blood - Blood specimen (specimen) Performing Organization Address City/State/ZIP Code Phon e Number [facility] POINT [address] [place], [place] [address] 04 OF CARE TESTING MRI BRAIN WITHOUT CONTRAST (01/24/2021 12:43 AM CDT) Specimen Narrative Performed At This result has an attachment that is no t available. [id number] Patient Name: EDDIE MARIO Date of : 1935 Procedure: MRI BRAIN WITHOUT CONTRAST Date of Service: 01/24/2021 EXAM: MRI BRAIN WITHOUT CONTRAST INDICATION: Male, 85 years year old pa tient, Neuro deficit, acute, stroke suspected COMPARISON(S): CT head dated 01/23/2021 without interpretation. TECHNIQUE: Diffusion-weighted imaging was performed in the axial plane. FINDINGS: Cerebrum: Scattered tiny high signal foc i are noted at diffusion imaging within the right anterior midbrain, right anterior posterior asya compatible with acute infarcts. No associated abnormal FLAIR si gnal in these regions. No evidence of in farct is identified elsewhere. Enlarged cortical sulci and lateral ventricles are consistent with generalized atrophy. FLAIR images show periventricular and scatt ered small foci of subcortical white mat ter high signal consistent with moderate chronic ischemic white matter disease. Cerebellum: No acute intracranial hemorrhage or mass i s identified. Orbits: Status post bilateral cataract surgery. Paranasal sinuses: Minimal mucoperiostea l thickening at the bilateral maxillary sinuses. Mastoids: No clear evidence of mastoiditis. IMPRESSION: 1. 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 2. Generalized atrophy and moderate chronic ischemic white matter disease. 3. Dr. Sumner was notified of results by phone at 1 :00 AM. Finalized by: Pako Garrison on 01/24/2021 1:02 AM CDT Patient/Procedure Information: [facility] MRN/JR: [id number] Order Number: [id number] Accession Number: [id number] Ordering Provider: ANA CRISTINA FRIEDMAN Authorizing Provider: ANA CRISTINA FRIEDMAN Procedure Note Interface, Radiantres - 01/24/2021 1:04 AM CDT Patient Name: EDDIE MARIO Date of : 1935 Procedure: MRI BRAIN WITHOUT CONTRAST Date of Service: 01/24/2021 EXAM: MRI BRAIN WITHOUT CONTRAST INDICATION: Male, 85 years year old pat ient, Neuro deficit, acute, stroke suspected COMPARISON(S): CT head dated 01/23/2021 without interpre tation. TECHNIQUE: Diffusion-weighted imaging wa s performed in the axial plane. FINDINGS: Cerebrum: Scattered tiny high signal foc i are noted at diffusion imaging within the right anterior midbrain, right anterior posterior asya compatible with acute infarcts. No associated abnormal FLAIR signal in these regions. No evidence of infarct is identified elsewhere. Enlarged cortical sulci and lateral ventricles are consistent with generalized atrophy. FLAIR images show periventricular and scattered small foci of subcortical white matter high signal con sistent with moderate chronic ischemic white matter disease. Cerebellum: No acute intracranial hemorr aldair or mass is identified. Orbits: Status post bilateral cataract s urgery. Paranasal sinuses: Minimal mucoperiostea l thickening at the bilateral maxillary sinuses. Mastoids: No clear evidence of mastoidit is. IMPRESSION: 1. Multiple small acute infarcts involv ing the right midbrain. 2. Generalized atrophy and moderate chr onic ischemic white matter disease. 3. Dr. Sumner was notified of results by phone at 1:00 AM. Finalized by: Pako Garrison on 01/24/2021 1:02 AM CDT Patient/Procedure Information: [facility] MRN/JR: [id number] Order Number: [id number] Accession Number: [id number] Ordering Provider: ANA CRISTINA FRIEDMAN Authorizing Provider: ANA CRISTINA FRIEDMAN Performing Organization Address City/State/ZIP Code Phon e Number [id number] MRA NECK WITHOUT CONTRAST (01/24/2021 12:43 AM CDT) Specimen Narrative Performed At This result has an attachment that is no t available. PS360 Patient Name: EDDIE MARIO Date of : 1935 Procedure: MRA NECK WITHOUT CONTRAST Date of Service: 01/24/2021 EXAM: MRA NECK WITHOUT CONTRAST INDICATION:Neuro deficit, acute, stroke suspected COMPARISON: None. TECHNIQUE: [id number] MRA with MIP reconstructed sequences. Postcontrast imaging was acquired status post administration of 10 cc of gadolinium without immediate complication. LIMITATIONS: Secondary to motion artifact. FINDINGS: AORTIC ARCH: Normal 3 vessel arch anatom y. Origin of the right brachiocephalic artery is not visualized. No narrowing at the origin of the left common carotid or left subclavian arteries. CAROTID VASCULATURE: No high-grade steno sis, evidence of dissection or occlusive disease within the extracranial carotid arteries. Potential free-floating intraluminal thrombus in the proximal aspect of the right cervical ICA near the origin versus motion artifact. VERTEBRAL VASCULATURE: Right dominant. No high-grade stenosis or occlusive disease within the extracranial vertebral arteries. IMPRESSION: Potential free-floating intraluminal thr ombus in the proximal aspect of the right cervical ICA near the origin versus motion artifact. Carotid duplex ultrasound would further delineate this finding. Finalized by: Gabriele Donato MD on 01/24/2021 12:44 A M CDT Patient/Procedure Information: [facility] MRN/JR: [id number] Order Number: [id number] Accession Number: [id number] Ordering Provider: ANA CRISTINA FRIEDMAN Authorizing Provider: ANA CRISTINA FRIEDMAN Procedure Note Interface, Radibanner - 01/24/2021 12:47 AM CDT Patient Name: EDDIE MARIO Date of : 1935 Procedure: MRA NECK WITHOUT CONTRAST Date of Service: 01/24/2021 EXAM: MRA NECK WITHOUT CONTRAST INDICATION:Neuro deficit, acute, stroke suspected COMPARISON: None. TECHNIQUE: [id number] MRA with MIP reconstructed sequences. Postcontrast imaging was acquired status post administration of 10 cc of gadolinium without immediate complication. LIMITATIONS: Secondary to motion artifac t. FINDINGS: AORTIC ARCH: Normal 3 vessel arch anatom y. Origin of the right brachiocephalic artery is not visualized. No narrowing at the origin of the left common carotid or left subclavian arteries. CAROTID VASCULATURE: No high-grade steno sis, evidence of dissection or occlusive disease within the extracranial carotid arteries. Potential free-floating intraluminal thrombus in the proximal aspect of the right cervical ICA near the origin versus meagan on artifact. VERTEBRAL VASCULATURE: Right dominant. No high-grade stenosis or occlusive disease within the extracranial vertebral arteries. IMPRESSION: Potential free-floating intraluminal thr ombus in the proximal aspect of the right cervical ICA near the origin versus motion artifact. Carotid duplex ultrasound would further delineate this finding. Finalized by: Gabriele Donato MD on 01/12 12:44 AM CDT Patient/Procedure Information: [facility] MRN/JR: [id number] Order Number: [id number] Accession Number: [id number] Ordering Provider: ANA CRISTINA FRIEDMAN Authorizing Provider: ANA CRISTINA FRIEDMAN Performing Organization Address City/State/ZIP Code Phon e Number [id number] MRA HEAD WITHOUT CONTRAST (01/24/2021 12:42 AM CDT) Specimen Narrative Performed At This result has an attachment that is no t available. PS360 Patient Name: EDDIE MARIO Date of : 1935 Procedure: MRA HEAD WITHOUT CONTRAST Date of Service: 01/24/2021 EXAM: MRA HEAD WITHOUT CONTRAST INDICATION:Neuro deficit, acute, stroke suspected COMPARISON: None. TECHNIQUE: [id number] MRA with MIP reconstructed sequences. LIMITATIONS: Secondary to motion artifact. FINDINGS: ANTERIOR CIRCULATION: Visualized cervica l/petrous/cavernous/supraclinoid ICAs, proximal ophthalmic arteries, middle/anterior cerebral arteries and anterior communicating artery appear to opacify. 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 POSTERIOR CIRCULATION: V4 segment of the vertebral arteries, PICA, basilar artery, superior cerebellar arteries (proximal aspects) and posterior cerebral arteries appear to opacify. Left superior cere bellar artery arises directly off of the left P1 segment of the posterior cerebral artery, normal variant. Tiny posterior communicating arteries believed identified. IMPRESSION: No high-grade stenosis or occlusive dise ase within the major arterial vasculature. 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 Neurovascular interventional follow-up recommended. Finalized by: Gabriele Donato MD on 01/24/2021 12:48 A M CDT Patient/Procedure Information: [facility] MRN/JR: [id number] Order Number: [id number] Accession Number: [id number] Ordering Provider: ANA CRISTINA FRIEDMAN Authorizing Provider: ANA CRISTINA FRIEDMAN Procedure Note Interface, Radiantres - 01/24/2021 12:51 AM CDT Patient Name: EDDIE MARIO Date of : 1935 Procedure: MRA HEAD WITHOUT CONTRAST Date of Service: 01/24/2021 EXAM: MRA HEAD WITHOUT CONTRAST INDICATION:Neuro deficit, acute, stroke suspected COMPARISON: None. TECHNIQUE: [id number] MRA with MIP reconstructed sequences. LIMITATIONS: Secondary to motion artifac t. FINDINGS: ANTERIOR CIRCULATION: Visualized cervica l/petrous/cavernous/supraclinoid ICAs, proximal ophthalmic arteries, middle/anterior cerebral arteries and anterior communicating artery appear to opacify. 2 mm sessile dorsally directed aneurysm arises from the right cavernous carotid artery (image 43 of 110, axial [id number]). POSTERIOR CIRCULATION: V4 segment of the vertebral arteries, PICA, basilar artery, superior cerebellar arteries (proximal aspects) and posterior cerebral arteries appear to opacify. Left superior cerebellar artery arises directly off of the left P1 segme nt of the posterior cerebral artery, normal variant. Tiny posterior communicating arteries believed identified. IMPRESSION: No high-grade stenosis or occlusive dise ase within the major arterial vasculature. 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 Neurovascular interventional follow-up recommended. Finalized by: Gabriele Donato MD on 01/12 12:48 AM CDT Patient/Procedure Information: [facility] MRN/JR: [id number] Order Number: [id number] Accession Number: [id number] Ordering Provider: ANA CRISTINA FRIEDMAN Authorizing Provider: ANA CRISTINA FRIEDMAN Performing Organization Address City/State/ZIP Code Phon e Number [id number] documented in this encounter Visit Diagnoses Diagnosis Stented coronary artery - Primary Postsurgical percutaneous transluminal c oronary angioplasty status Hypertension, unspecified type LV (left ventricular) mural thrombus Acute myocardial infarction, unspecified site, episode of care unspecified Cerebrovascular accident (CVA) due to em bolism of cerebral artery (HCC) TIA (transient ischemic attack) Unspecified transient cerebral ischemia Tachycardia Tachycardia, unspecified documented in this encounter Discharge Diagnoses Not on filedocumented in this encounter Administered Medications Medication Order MAR Action Action Date Dose Rate Site .Anticoagulation (WARFARIN) therapy nurs ing reminder Anti-coag reminder, First dose on Sun01/26/21 at 1425, Until Discontinued acetaminophen (TYLENOL) suppository 650 mg 650 mg, Rectal, Every six hours prn, Starting on Sun at 2221, Until Discontinued, fever > (indicate temp), 1 00.4 degrees F, Use rectal suppository if patient not able to take oral acetaminophen. Adult p atients: Total dose of acetaminophen from all acetaminophen con taining products should not exceed 4 grams (4,000 mg) per day. Pediatric Patients 0 - 3 months: Maximum of 60 mg/kg/24 hours of acetaminophen. Pediatric Patients old er than 3 months: Maximum of 75 mg/kg/24 hours of acetaminophen (Never exceeding 4 grams/24 mine rs). acetaminophen (TYLENOL) tablet 650 mg 650 mg, Oral, Every six hours prn, Starting on Sun 01/12 07/04 at 2221, Until Discontinued, fever > (indicate temp), 1 00.4 degrees F, Adult patients: Total dose of acetaminophen from all acetaminophen containing pro ducts should not exceed 4 grams (4000 mg) per day. Pediatric Patie nts 0 - 3 months: Maximum of 60 mg/kg/24 hours of acetaminophen. Pediatric Patients older than 3 months: Maximum of 75 mg/kg/24 hours of acetaminophen (Never exceeding 4 gra ms/day). acetaminophen (TYLENOL) tablet 650 mg Given 01/31/2021 7:33 AM CDT 650 mg 650 mg, Oral, Every four hours prn, Starting on 01/24/21 at 0002, Until Discontinued, mild pain, Use FIRST for mild pain. If inadequate response in 60 minutes, may proceed to next choice option or if no other options, contact provider. Adult patients: Total dose of acetaminophen from all acetaminophen containing products should not exceed 4 grams (4000 mg) per day. Pediatric Patients 0 - 3 months: Maximum of 60 mg/kg/24 hours of acetaminophen. Pediatric Patients older than 3 months: Maximum of 75 mg/kg/24 hours of acetaminophen (Never exceeding 4 grams/day). Given 01/28/2021 4:50 PM CDT 650 mg Given 01/27/2021 9:34 AM CDT 650 mg amLODIPine (NORVASC) tablet 5 mg Given 01/31/2021 7:33 AM CDT 5 mg 5 mg, Oral, Daily, First dose (after last modification) on Sun01/30/21 at 0900, Until Discontinued Given 01/30/2021 9:11 AM CDT 5 mg aspirin enteric coated tablet 81 mg Given 01/31/2021 7:33 AM CDT 81 mg 81 mg, Oral, Daily, First dose on Sun01/26/21 at 0900, Until Discontinued, Post-Procedure (Cath), Tablet should be swallowed whole and not be divided, crushed or chewed. Given 01/30/2021 9:11 AM CDT 81 mg Given 01/29/2021 9:20 AM CDT 81 mg atorvaSTATin (LIPITOR) tablet 40 mg Given 01/30/2021 7:45 PM CDT 40 mg 40 mg, Oral, Bedtime, First dose on Sun01/24/21 at 0510, Until Discontinued Given 01/29/2021 8:38 PM CDT 40 mg Given 01/28/2021 10:17 PM CDT 40 mg bisacodyl (DULCOLAX) suppository 10 mg 10 mg, Rectal, One time a day prn, Starting on 01/12 at 0002, Until Discontinued, constipation, Use SECOND for constipatio n. If patient cannot take oral medications, use first for constipation. calcium carbonate (TUMS) chewable tablet Given 01/27/2021 9 :29 PM CDT 1,000 mg 1,000 mg 1,000 mg, Oral, Every six hours prn, Starting on Marge 01/27/21 at 2046, Until Discontinued, heartburn, indigestion carbohydrate 15 g 15 g, Oral, PRN per parameter, Starting on Sun01/24/21 at 0001, Until Discontinued, low blood glucose, Give 15 grams of carb ohydrate if blood glucose is less than 70 mg/dL, patient is responsive and able to take food or oral meds. Recheck blood glucose in 15 minutes. Repeat 1 time and call MD. If recheck is greater than 70 mg/dL and able to take food or oral meds, give 15 gram carbohydrate if meal or snack due in more than an hour. Serve meal or snack if due in less than 1 hour. See hypoglycemia treatment on cardex. S ources of 15 grams carbohydrate: a. 4 oz of fruit juice (Do NOT give orange juice to dialysis p atients due to risk of hyperkalemia) or b. 4 oz of soda pop (NOT diet) or c . 1 tablespoon of honey clopidogrel (PLAVIX) tablet 75 mg Given 01/31/2021 7:34 AM CDT 75 mg 75 mg, Oral, Daily, 365 doses, First dose on Sun01/26/21 at 0900, Last dose on Sun01/25/22 at 0900, Post-Procedure (Cath) Given 01/30/2021 9:11 AM CDT 75 mg Given 01/29/2021 9:20 AM CDT 75 mg docusate sodium (THEREVAC-SB MINI;ENEMEE Z MINI) 283 MG enema 1 enema 1 enema, Rectal, One time a day prn, Starting on Sun at 0002, Until Discontinued, constipation, Use THIRD for constipation - if no BM 8 hours after dulcolax suppository. If patient cannot take oral medi cations, use second for constipation. glucose chewable tablet 16 g 16 g (4 tablet), Oral, PRN per parameter , Starting on Sun01/24/21 at 0001, Until Discontinued, low blood glucose, Chew before swallowin g. Give 15 gram of carbohydrate if blood glucose is less th an 70 mg/dL, patient is responsive and able to take food or oral meds. Recheck blood glucose in 15 minutes. Repeat 15 gram carbohydrate if recheck is less than 70 mg/dL and call MD. If recheck is greater than 70 mg/dL and able to take food or o ral meds, give 15 gram carbohydrate if meal or snack due in more than an hour. Serve meal or snack if due in less than 1 hour. See hypoglycemia treatment on cardex. S ources of 15 grams carbohydrate: a. 4 oz of fruit juice (Do NOT give orange juice to dialysis p atients due to risk of hyperkalemia) or b. 4 oz of soda pop (NOT diet) or c . 1 tablespoon of honey hydrALAZINE (APRESOLINE) injection solut ion 10 mg 10 mg, IV, Every six hours prn, Starting on Sat 1 at 0849, Until Discontinued, specified parameter, to ke ep SBP less than 180 mmHg, 0.5 mL, Repeat in 20 minutes if needed. If not successful after two d oses, contact the interventional cardiology team. insulin aspart (NovoLOG) SQ correction Given 01/30/2021 5:22 AM CDT 2 Units scale (Adult) 2-8 Units, Subcutaneous, Three times a day, First dose on 01/24/21 at 0600, Until Discontinued, 0.08 mL, Give this dose whether patient is eating or patient is NPO LOW DOSE insulin aspart (NovoLOG) subcutaneous correction scale Premeal Blood Glucose = Insulin Dose 150-199 2 units 200-249 3 units 250-299 5 units 300-349 7 units Over 349 8 units Given 01/29/2021 5:30 PM CDT 2 Units Given 01/29/2021 6:15 AM CDT 2 Units losartan tablet 100 mg Given 01/31/2021 7:34 AM CDT 100 mg 100 mg, Oral, Daily, First dose on Marge 01/27/21 at 0905, Until Discontinued Given 01/30/2021 9:11 AM CDT 100 mg Given 01/29/2021 9:20 AM CDT 100 mg metoprolol succinate (TOPROL XL) SR tablet Given 01/31/2021 7:3 3 AM CDT 50 mg (24 hr) 50 mg 50 mg, Oral, Daily, First dose (after last modification) on Sun01/28/21 at 0900, Until Discontinued, Tablet may be broken in half, but should not be crushed or chewed. Given 01/30/2021 9:11 AM CDT 50 mg Given 01/29/2021 9:20 AM CDT 50 mg nitroglycerin (NITROSTAT) sublingual tab let 0.4 mg 0.4 mg, Sublingual, Every five minutes p rn, Starting on Tu01/25/21 at 0953, Until Discontinued, chest pain, At onset of ch est pain, dissolve one tablet under tongue. May repeat every 5 minutes for 3 doses. Do not crush o r chew. ondansetron (ZOFRAN) injection solution 4 mg Given 01/25/2021 10:43 AM CDT 4 mg 4 mg, IV, Every four hours prn, Starting on 01/23/21 at 2221, Until Discontinued, nausea, vomiting, 2 mL, Use FIRST. If ineffective after 15 minutes use metoclopramide. If preference is to further dilute for IV administration: First draw up patient-specific dose, then dilute to 10 mL with 0.9% sodium chloride. senna-docusate sodium (SENOKOT-S;PERICOL SARINA) tablet 2 tablet 2 tablet, Oral, Two times a day prn, Starting on Mon at 0002, Until Discontinued, constipation, Use FIRST fo r constipation unless patient cannot take oral medications. sodium chloride 0.9% flush (adult) 10 mL Given 01/29/2021 8:38 PM CDT 10 mL 10 mL, IV, Two times a day and prn, First dose on 01/23/21 at 2200, Until Discontinued, 10 mL, Flush PIV line as scheduled and as often as necessary before and after meds. Use a push / pause technique when flushing to create turbulence. Given 01/28/2021 8:04 AM CDT 10 mL Given 01/27/2021 8:41 PM CDT 10 mL Medication Order MAR Action Action Date Dose Rate Site amLODIPine (NORVASC) tablet 2.5 Given 01/29/2021 9:20 AM CDT 2. 5 mg mg 2.5 mg, Oral, Daily, First dose on Sun01/29/21 at 0900, Until Discontinued aspirin chewable tablet 243 mg Given 01/25/2021 8:51 AM CDT 243 mg 243 mg, Oral, One time, 1 dose, On Sun01/24/21 at 1750, Prep Orders (Cath) if inpatient - floor RN to release, Patient to receive 325 mg aspirin prior to procedure If patient currently taking aspirin at home and has taken their dose today prior to procedure: administer aspirin dosage so that total amount prior to procedure equals 325 mg aspirin chewable tablet 81 mg Given 01/24/2021 5:41 PM CDT 81 mg 81 mg, Oral, DAILY, First dose on Sun01/24/21 at 1800, Until Discontinued cefTRIAXone (ROCEPHIN) 1000 mg/10 mL IV Given 01/26/2021 8:58 A M CDT 1,000 mg syringe in sterile water 1,000 mg, IV, Every twenty four hours, First dose on Sun01/24/21 at 0900, Until Discontinued, 10 mL, Administer over 5 minutes. Given 01/25/2021 8:20 AM CDT 1,000 mg Given 01/24/2021 9:34 AM CDT 1,000 mg clopidogrel (PLAVIX) tablet 75-600 mg Given 01/25/2021 9:56 AM CDT 600 mg 75-600 mg, Oral, Administer in Cardiac Cloud Operations Engineer, 1 dose, On Sun01/25/21 at 0950, Under the direction of the provider in CCL. Do not give on the floor. fentaNYL 100 mcg/2 mL preservative free Given 01/25/2021 9:04 A M CDT 25 mcg injection solution 25-300 mcg 25-300 mcg, IV, PRN per parameter, Starting on Sun01/24/21 at 1746, Until Sun01/25/21 at 1040, other (Specify), sedation for cardiac catheterization, 6 mL, Pre-Procedure (Cath), procedural area to release, For sedation under direction provider privileged to perform sedation. Do not give on the floor. hEParin (50 units/mL) in Rate Verify 01/31/2021 7:20 AM 25.3 Unit s/kg/hr 33.1 mL/hr D5W premixed IV solution CDT ([facility] STANDARD ANTI-XA. Goal Range 0.3-0.7) 0-50 Units/kg/hr 65.5 kg (0-65.5 mL/hr), IV, at 0-65.5 mL/hr, Titrate, Starting on Sun01/24/21 at 1615, Until Sun01/31/21 at 0735, 500 mL, Go to the right side of the screen, below "Associated Flowsheet Rows" header. Use "Initial Dose" section to start heparin infusion. Use "Adjustment Calculator" section to titrate the heparin infusion 6 hours after initiation. AFTER PROCEDURE ONLY: When restarting infusion after it's been held for a procedure, restart infusion at 15 units/kg/hr unless infusion was running at less than 15 units/kg/hr prior to procedure, then restart at that rate. Run at this rate for 6 hours. Recheck anti-Xa in 6 hours and use the "adjustment calculator" to titrate the heparin infusion. Call unit pharmacist with questions. New Bag 01/31/2021 4:01 AM CDT 25.3 Units/kg/hr 33.1 mL/hr Rate Change 01/31/2021 2:38 AM CDT 25.3 Units/kg/hr 33.1 mL/hr heparin (porcine) (5000 units/1 mL) IV Given 6:28 PM CDT 4,600 Units PRN bolus order 2,300-4,600 Units 2,300-4,600 Units (rounded from 2,292.5-4,585 Units = 35-70 Units/kg 65.5 kg), IV, PRN per parameter, Starting on Sun01/24/21 at 1511, Until Sun01/31/21 at 0735, Anti-XA protocol, Per current Anti-Xa results, 0.92 mL, Supplemental bolus doses based on anti-Xa. Maximum bolus dose of heparin 7500 units. Given 01/27/2021 9:28 PM CDT 2,300 Units Given 01/27/2021 8:21 AM CDT 2,300 Units heparin (porcine) injection solution Given 01/25/2021 9:30 AM C DT 2,000 Units 0-12,000 Units 0-12,000 Units, IV, Administer in Cardiac Cloud Operations Engineer, 1 dose, On Sun01/25/21 at 0920, 12 mL, Under the direction of the provider in CCL. Do not give on the floor. Given 01/25/2021 9:18 AM CDT 4,000 Units hydrALAZINE (APRESOLINE) injection solution Given 01/29/2021 3:59 AM CDT 10 mg 10 mg 10 mg, IV, Every six hours prn, Starting on Sun01/25/21 at 0953, Until 01/29/21 at 0849, specified parameter, to keep SBP less than 150 mmHg, 0.5 mL, Repeat in 20 minutes if needed. If not successful after two doses, contact the interventional cardiology team. Given 01/29/2021 12:36 AM CDT 10 mg Given 01/28/2021 8:08 AM CDT 10 mg hydrALAZINE (APRESOLINE) injection solution Given 01/26/2021 5:17 AM CDT 10 mg 10 mg 10 mg, IV, Now, 1 dose, On Sun01/26/21 at 0510, 0.5 mL iohexol (OMNIPAQUE) 350 mg/mL solution 0-300 Given 9:55 AM CDT 165 mL mL 0-300 mL, Intra-arterial, One time, 1 dose, On Sun01/24/21 at 1750, 300 mL, Prep Orders (Cath) if inpatient - floor RN to release, Do NOT administer on the floor. Radiology to administer for CCL Procedure ONLY. lidocaine 1%-EPINEPHrine 1:100,000 Given 01/27/2021 3:38 PM CDT 6 mL (XYLOCAINE-EPINEPHRINE) 1 %-[id number] injection 0-10 mL 0-10 mL, Subcutaneous, Administer in Cardiac Cloud Operations Engineer, 1 dose, On Sun01/27/21 at 1535, 20 mL, Given by provider in CCL. Do not give on the floor. lidocaine PF (XYLOCAINE-MPF) 1 % preservative Given 9:04 AM CDT 1 mL free injection solution 2 mL 2 mL, Subcutaneous, One time, 1 dose, On Sun01/24/21 at 1750, 2 mL, Prep Orders (Cath) if inpatient - floor RN to release metoprolol succinate (TOPROL XL) SR tablet Given 01/27/2021 8:1 0 AM CDT 25 mg (24 hr) 25 mg 25 mg, Oral, Daily, First dose on Sun01/25/21 at 0900, Until Discontinued, Tablet may be broken in half, but should not be crushed or chewed. Given 01/26/2021 8:58 AM CDT 25 mg Given 01/25/2021 8:03 AM CDT 25 mg metoprolol succinate (TOPROL XL) SR tablet Given 01/27/2021 10:3 4 AM CDT 25 mg (24 hr) 25 mg 25 mg, Oral, One time, 1 dose, On Sun01/27/21 at 1050, Tablet may be broken in half, but should not be crushed or chewed. Hold for SBP less than 100 Hold for HR less than 55 midazolam (VERSED) injection solution 0.5-10 Given 9:05 AM CDT 1 mg mg 0.5-10 mg, IV, PRN per parameter, Starting on Sun01/24/21 at 1746, Until Sun01/25/21 at 1040, other (Specify), sedation for cardiac catheterization, 10 mL, Pre-Procedure (Cath), procedural area to release, For sedation under direction provider privileged to perform sedation. Do not give on the floor. nitroglycerin (100 mcg/mL) in NS Given 01/25/2021 9:27 AM CDT 400 mcg 1-3 mL (100-300 mcg), Intra-arterial, PRN per parameter, Starting on Sun01/24/21 at 1746, Until Sun01/25/21 at 1040, other (Specify), coronary artery spasm, 10 mL, Pre-Procedure (Cath), procedural area to release nitroglycerin (100 mcg/mL) in NS Given 01/25/2021 9:40 AM CDT 400 mcg 0-6 mL (0-600 mcg), Intracardiac, Administer in Cardiac Cloud Operations Engineer, 1 dose, On Sun01/25/21 at 0940, 10 mL, Given by provider in CCL. Do not give on the floor. sodium chloride 0.9% flush (adult) 10 mL Given 01/28/2021 8:04 AM CDT 10 mL 10 mL, IV, Two times a day and prn, First dose on Sun01/24/21 at 0900, Until Discontinued, 10 mL, Flush PIV line as scheduled and as often as necessary before and after meds. Use a push / pause technique when flushing to create turbulence. Given 01/26/2021 8:58 AM CDT 10 mL Given 01/25/2021 7:46 PM CDT 10 mL sodium chloride 0.9% IV solution New Bag 01/24/2021 8:49 PM CDT 75 mL/hr IV, at 75 mL/hr, Continuous, Starting on Sun01/24/21 at 0005, Until Sun01/25/21 at 1900, 1,000 mL Already Infusing 01/24/2021 5:53 AM CDT 75 mL/hr sodium chloride 0.9% IV Already Infusing 01/24/2021 5:52 PM CDT 75 mL/hr solution IV, at 75 mL/hr, Continuous, Starting on Sun01/24/21 at 1750, Until Sun01/25/21 at 1040, 1,000 mL, Prep Orders (Cath) if inpatient - floor RN to release, If this is a TILT procedure, start IV fluid at TKO (10 mL/hr) before transfer to the catheterization laboratory technician verapamil-hEParin in normal saline (radial Given 01/25/2021 9:0 6 AM CDT cocktail) Intra-arterial, Now, 1 dose, On Sun01/24/21 at 1750, 10 mL, Prep Orders (Cath) if inpatient - floor RN to release, Do NOT administer on the floor. Procedural/CCL ONLY product. Provider must be present. warfarin (COUMADIN) tablet 2.5 mg Given 01/26/2021 3:42 PM CDT 2.5 mg 2.5 mg, Oral, Warfarin one time dose, 1 dose, On Sun01/26/21 at 1600, If patient is receiving tube feeding, hold tube feeding 1 hour before and 1 hour after warfarin administration. If unable to administer dose intact, wear universal precautions (one pair of gloves). warfarin (COUMADIN) tablet 2.5 mg Given 01/27/2021 4:41 PM CDT 2.5 mg 2.5 mg, Oral, Warfarin one time dose, 1 dose, On Marge 01/27/21 at 1600, If patient is receiving tube feeding, hold tube feeding 1 hour before and 1 hour after warfarin administration. If unable to administer dose intact, wear universal precautions (one pair of gloves). warfarin (COUMADIN) tablet 2.5 mg Given 01/29/2021 3:59 PM CDT 2.5 mg 2.5 mg, Oral, Warfarin one time dose, 1 dose, On 01/29/21 at 1600, If patient is receiving tube feeding, hold tube feeding 1 hour before and 1 hour after warfarin administration. If unable to administer dose intact, wear universal precautions (one pair of gloves). warfarin (COUMADIN) tablet 2.5 mg Given 01/30/2021 4:11 PM CDT 2.5 mg 2.5 mg, Oral, Warfarin one time dose, 1 dose, On 01/30/21 at 1600, If patient is receiving tube feeding, hold tube feeding 1 hour before and 1 hour after warfarin administration. If unable to administer dose intact, wear universal precautions (one pair of gloves). warfarin (COUMADIN) tablet 2.5 mg Given 01/31/2021 11:25 AM CDT 2.5 mg 2.5 mg, Oral, Warfarin one time dose, 1 dose, On 01/31/21 at 1200, If patient is receiving tube feeding, hold tube feeding 1 hour before and 1 hour after warfarin administration. If unable to administer dose intact, wear universal precautions (one pair of gloves). warfarin (COUMADIN) tablet 5 mg Given 01/28/2021 4:40 PM CDT 5 mg 5 mg, Oral, Warfarin one time dose, 1 dose, On 01/28/21 at 1600, If patient is receiving tube feeding, hold tube feeding 1 hour before and 1 hour after warfarin administration. If unable to administer dose intact, wear universal precautions (one pair of gloves). documented in this encounter Active and Recently Administered Medications Times are shown in CDT. Medication Order 01/29/2021 01/30/2021 01/31/2021 .Anticoagulation (WARFARIN) therapy nursing reminder 0 921 (Noted Reminder - Provider: Jennyfer Perez RN)1222 (Noted Reminder - Provider: Jennyfer Perez RN - Comment: Coumadin 2.5mg already ordered. Reminder not needed.) 1018 (Noted Reminder - Provider: Jennyfer Perez RN)1423 (Noted Reminder - Provider: Jennyfer Perez RN) 1102 (Noted Reminder - Provider: Celia Escalante RN)1426 (Noted Reminder - Provider: Eduard Alas, ARON) Anti-coag reminder, First dose on Sun01/26/21 at 1425, Until Dis continued amLODIPine (NORVASC) tablet 2.5 mg (CANCELED) 09 (Gi toyin - Provider: Jennyfer Perez RN) 2.5 mg, Oral, Daily, First dose on 01/29/21 at 0900, Until Di scontinued amLODIPine (NORVASC) tablet 5 mg 0911 (Given - P rovider: Jennyfer Perez RN) 0733 (Given - Provider: Eduard Alas, ARON) 5 mg, Oral, Daily, First dose (after las t modification) on Sun01/30/21 at 0900, Until Discontinued aspirin enteric coated tablet 81 mg(Linked Group 1) 01 31 (Given - Provider: Jennyfer Perez RN) 910 (Given - Provider: Jennyfer Perez RN) 0733 (Given - Provider: Eduard Alas, RN) 81 mg, Oral, Daily, First dose on Sun at 0900, Until Discontinued, Post- Procedure (Cath), Tablet should be swallowed whole and not be divided, crushed or chewed. atorvaSTATin (LIPITOR) tablet 40 mg 2037 (Given - Prov ider: Whit Mota RN) 1944 (Given - Provider: Whit Mota RN) 2099 (Due) 40 mg, Oral, Bedtime, First dose on Sun01/24/21 at 0510, Until D iscontinued clopidogrel (PLAVIX) tablet 75 mg 919 (Given - Provider: Jer Perez RN) 910 (Given - Provider: Jennyfer Perez RN) 0734 (Given - Provider: Eduard Alas RN) 75 mg, Oral, Daily, 365 doses, First dos e on Sun01/26/21 at 0900, Last dose on Sun01/25/22 at 0900, Post-Procedure (Cath) insulin aspart (NovoLOG) SQ correction scale (Adult) 0 615 (Given - Provider: Valerie Fernandez RN)1213 (Not Indicated - Provider: Jennyfer Perez RN - Comment: BS 145)1730 (Given - Provider: Whit Mota RN - Comment: BG 182) 0522 (Given - Provider: Valerie Fernandez RN)1201 (Not Indicated - Provider: Jennyfer Perez RN - Comment: BS 138)1611 (Not Indicated - Provider: Whit Mota RN - Comment: BG 129) 0524 (Not Indicated - Provider: Valerie Fernandez RN)1402 (Not Given - Provider: Eduard Alas, RN - Reason: Not Given - Comment: BG was 138)1730 (Due) 2-8 Units, Subcutaneous, Three times a d ay, First dose on Sun01/24/21 at 0600, Until Discontinued, 0.08 mL, Give this dose whether patient is eating or patient is NPO LOW DOSE insulin aspart (NovoL OG) subcutaneous correction scale Preme al Blood Glucose = Insulin Dose 150-199 2 units 200- 249 3 units 250-299 5 units 300-349 7 units Over 349 8 units losartan tablet 100 mg 0920 (Given - Provider: Jennyfer Perez RN) 09 (Given - Provider: Jennyfer Perez RN) 0734 (Given - Provider: Eduard Alas, RN) 100 mg, Oral, Daily, First dose on Marge 01/27/21 at 0905, Until Di scontinued metoprolol succinate (TOPROL XL) SR tablet (24 hr) 50 mg 0920 (Given - Provider: Jennyfer Perez, RN) 09 (Given - Provider: Jennyfer Perez, RN) 0733 (Given - Provider: Eduard lAas, RN) 50 mg, Oral, Daily, First dose (after la st modification) on Sun01/28/21 at 0900, Until Discontinued, Tablet may be broken in half, but should not be crushed or chewed. sodium chloride 0.9% flush (adult) 10 mL 0920 (Not Ind icated - Provider: Jennyfer Perez RN - Comment: heparin infusing)2037 (Given - Provider: Whit Mota RN) 0912 (Not Indicated - Provider: Jennyfer briscoe RN - Comment: heparin infusing)2100 (Already Infusing. - Provider: Whit Mota RN - Comment: heparin infusing through PIV) 1035 (Not Given - Provider: Eduard Alas RN - Reason: Not Given - Comment: IV drip running)2100 (Due) 10 mL, IV, Two times a day and prn, Firs t dose on 01/23/21 at 2200, Until Discontinued, 10 mL, Flush PIV line as scheduled and as often as necessary before and after meds. Use a push / pause technique when flushing to create turbulence. warfarin (COUMADIN) tablet 2.5 mg (COMPLETED) 1559 (Gi toyin - Provider: Whit Mota RN) 2.5 mg, Oral, Warfarin one time dose, 1 dose, On 01/29/21 at 1600, If patient is receiving tube feeding, hold tube feeding 1 hour before and 1 hour after warfarin administration. If unable to adminis ter dose intact, wear universal precautions (one pair of gloves) . warfarin (COUMADIN) tablet 2.5 mg (COMPLETED) 1611 (Given - Provider: Whit Mota RN) 2.5 mg, Oral, Warfarin one time dose, 1 dose, On Sun01/30/21 at 1600, If patient is receiving tube feeding, hold tube feeding 1 hour before and 1 hour after warfarin administration. If unable to adminis ter dose intact, wear universal precautions (one pair of gloves) . warfarin (COUMADIN) tablet 2.5 mg (COMPLETED) 1125 (Given - Provider: Eduard Alas RN) 2.5 mg, Oral, Warfarin one time dose, 1 dose, On Sun01/31/21 at 1200, If patient is receiving tube feeding, hold tube feeding 1 hour before and 1 hour after warfarin administration. If unable to adminis ter dose intact, wear universal precautions (one pair of gloves) . Medication Order 01/29/2021 01/30/2021 01/31/2021 hEParin (50 units/mL) in D5W premixed IV solution ([facility] STANDARD ANTI-XA. Goal Range 0.3-0.7) (CANCELED) 0123 (Rate Verify - Provider: Valerei ramires RN)0720 (Rate Change - Provider: Jennyfer Perez RN)0735 (New Bag - Provider: Valerie Fernandez RN)1408 (Rate Change - Provider: Jennyfer Perez RN)1533 (Rate Verify - Provider: Whit Mota RN) 0156 (Rate Verify - Provider: Valerie Fernandez RN)0718 (Rate Verify - Provider: Jennyfer Perez RN)1300 (New Bag - Provider: Jennyfer Perez RN)1436 (Rate Verify - Provider: Jennyfer Perez RN)1523 (Rate Verify - Provider: Whit Mota RN) 0238 (Rate Change - Provider: Valerie Fernandez RN)0401 (New Bag - Provider: Valerie Fernandez RN)0720 (Rate Verify - Provider: Valerie Fernandez RN)1119 (Stopped - Provider: Eduard Alas RN - Comment: discontinue) 0-50 Units/kg/hr 65.5 kg (0-65.5 mL/hr), IV, at 0-65.5 mL/hr, Titrate, Starting on Sun01/24/21 at 1615, Until Sun01/31/21 at 0735, 500 mL, Go to the right side of the screen, below "Associated Flowsh 2038 (Rate Verify - Provider: Whit Mota RN)2135 (New Bag - Provider: Whit Mota RN)2300 (Rate Verify - Provider: Whit Mota RN) 194 (Rate Change - Provider: Whit Mota RN) eet Rows" header. Use "Initial Dose" se ction to start heparin infusion. Use "Adjustment Calculator" section to titrate the heparin infusion 6 hours after initiation. AFTER PROCEDURE ONLY: When restar ting infusion after it's been held for a procedure, restart infusion at 15 units/kg/hr unless infusion was running at less than 15 units/kg/hr prior to procedure, then restart at that rate. Run at this rate for 6 hours. Recheck anti-Xa in 6 h ours and use the "adjustment calculator" to titrate the heparin infusion. Call unit pharmacist with questions. Medication Order 01/29/2021 01/30/2021 01/31/2021 acetaminophen (TYLENOL) suppository 650 mg(Linked Group 2) 650 mg, Rectal, Every six hours prn, Sta rting on 01/23/21 at 2221, Until Discontinued, fever > (indicate temp), 100.4 degrees F, Use rectal suppository if patient not able to take oral acetaminoph en. Adult patients: Total dose of acet aminophen from all acetaminophen containing products should not exceed 4 grams (4,000 mg) per day. Pediatric Patients 0 - 3 months: Maximum of 60 mg/kg/24 hours o f acetaminophen. Pediatric Patients olde r than 3 months: Maximum of 75 mg/kg/24 hours of acetaminophen (Never exceeding 4 grams/24 hours). acetaminophen (TYLENOL) tablet 650 mg(Linked Group 2) 650 mg, Oral, Every six hours prn, Start ing on 01/23/21 at 2221, Until Discontinued, fever > (indicate temp), 100.4 degrees F, Adult patients: Total dose of acetaminophen from all acetaminophen co ntaining products should not exceed 4 gr ams (4000 mg) per day. Pediatric Patients 0 - 3 months: Maximum of 60 mg/kg/24 hours of acetaminophen. Pediatric Patients older than 3 months: Maximum of 75 mg/ kg/24 hours of acetaminophen (Never exceeding 4 grams/day). acetaminophen (TYLENOL) tablet 650 mg 732 (Given - Provider: Eduard lAas RN) 650 mg, Oral, Every four hours prn, Star ting on Sun01/24/21 at 0002, Until Discontinued, mild pain, Use FIRST for mild pain. If inadequate response in 60 minutes, may proceed to next choice option or if no other options, contact provider. Ad ult patients: Total dose of acetaminophen from all acetaminophen containing products should not exceed 4 grams (4000 mg) per day. Pediatric Patients 0 - 3 months: Maximum of 60 mg/kg/24 hours of acetam inophen. Pediatric Patients older than 3 months: Maximum of 75 mg/kg/24 hours of acetaminophen (Never exceeding 4 grams/day). bisacodyl (DULCOLAX) suppository 10 mg(Linked Group 3) 10 mg, Rectal, One time a day prn, Start ing on Sun01/24/21 at 0002, Until Discontinued, constipation, Use SECOND for constipation. If patient cannot take oral medications, use first for constipation. calcium carbonate (TUMS) chewable tablet 1,000 mg 1,000 mg, Oral, Every six hours prn, Sta rting on Marge 01/27/21 at 2046, Until Discontinued, heartburn, indigestion carbohydrate 15 g(Linked Group 4) 15 g, Oral, PRN per parameter, Starting on Sun01/24/21 at 0001, Until Discontinued, low blood glucose, Give 15 grams of carbohydrate if blood glucose is less than 70 mg/dL, patient is responsive and abl e to take food or oral meds. Recheck b lood glucose in 15 minutes. Repeat 1 time and call MD. If recheck is greater than 70 mg/dL and able to take food or oral meds, give 15 gram carbohydrate if meal or snack due in more than an hour. Serve meal or snack if due in less than 1 hour. See hypoglycemia treatment on cardex. Sources of 15 grams carbohydrate: a. 4 oz of fruit juice (Do NOT give orange j uice to dialysis patients due to risk of hyperkalemia) or b. 4 oz of soda pop (NOT diet) or c. 1 tablespoon of honey dextrose 50% IV solution 50 mL 50 mL (25 g), IV, PRN per parameter, Sta rting on Sun01/24/21 at 0001, Until Discontinued, low blood glucose, 50 mL, Give if blood glucose is less than 70 mg/dL, patient is unresponsive or NPO, and has I V access. Recheck blood glucose in 15 mi nutes and call MD. Repeat dose if recheck less than 70 mg/dL and call MD. If recheck is greater than 70 mg/dL and able to take food or oral meds, give 15 gram car bohydrate if meal or snack due in more t ventura an hour. Serve meal or snack if due in less than 1 hour. See hypoglycemia treatment on cardex. docusate sodium (THEREVAC-SB MINI;ENEMEE Z MINI) 283 MG enema 1 enema(Linked Group 3) 1 enema, Rectal, One time a day prn, Sta rting on Sun01/24/21 at 0002, Until Discontinued, constipation, Use THIRD for constipation - if no BM 8 hours after dulcolax suppository. If patient cannot take oral medications, use second for constipation. glucagon for injection 1 mg vial 1 mg 1 mg, Intramuscular, PRN per parameter, Starting on Sun01/24/21 at 0001, Until Discontinued, low blood glucose, Give if blood glucose less than 70 mg/dL, patient is unresponsive or NPO, and has no IV ac cess. Establish IV access. Recheck bloo d glucose in 15 minutes and call MD. If recheck is greater than 70 mg/dL and able to take food or oral meds, give 15 gram carbohydrate if meal or snack due in mo re than an hour. Serve meals or snack if due in less than 1 hour. See hypoglycemia treatment on cardex. Reconstitute vial with 1 mL of sterile water for injection for reconstitution for a final concent ration of 1 mg/mL. Shake vial gently. U se immediately and discard unused portion. Reconstitute with 1 mL of sterile water for injection to yield 1 mg/mL. Shake vial gently. Use immediately and discard unused portion. glucose chewable tablet 16 g(Linked Group 4) 16 g (4 tablet), Oral, PRN per parameter , Starting on Sun01/24/21 at 0001, Until Discontinued, low blood glucose, Chew before swallowing. Give 15 gram of carbohydrate if blood glucose is less than 70 mg /dL, patient is responsive and able to t dilcia food or oral meds. Recheck blood glucose in 15 minutes. Repeat 15 gram carbohydrate if recheck is less than 70 mg/dL and call MD. If recheck is greater than 70 mg/dL and able to take food or oral m eds, give 15 gram carbohydrate if meal or snack due in more than an hour. Serve meal or snack if due in less than 1 hour. See hypoglycemia treatment on cardex. Sources of 15 grams carbohydrate: a. 4 oz of fruit juice (Do NOT give orange juice to dialysis patients due to risk of hyperkalemia) or b. 4 oz of soda pop (NOT diet) or c. 1 tablespoon of honey hydrALAZINE (APRESOLINE) injection solution 10 mg (CAN CELED) 0036 (Given - Provider: Valerie Fernandez, RN)0359 (Given - Provider: Valerie Fernandez, RN) 10 mg, IV, Every six hours prn, Starting on Sun01/25/21 at 0953, Until 01/29/21 at 0849, specified parameter, to keep SBP less than 150 mmHg, 0.5 mL, Repeat in 20 minutes if needed. If not successful after two doses, contact the interventional cardiology team. hydrALAZINE (APRESOLINE) injection solution 10 mg 10 mg, IV, Every six hours prn, Starting on 01/29/21 at 0849, Until Discontinued, specified parameter, to keep SBP less than 180 mmHg, 0.5 mL, Repeat in 20 minutes if needed. If not successful after two doses, contact the interventional cardiology team. labetalol (NORMODYNE;TRANDATE) IV solution 10-40 mg 10-40 mg, IV, Every fifteen minutes prn, Starting on 01/23/21 at 2222, Until Discontinued, specified parameter, see admin instructions, 8 mL, For systolic blood pressure greater than 180 mmHg or lawler tolic blood pressure greater than 120 mm Hg: Starting dose of 10 mg Administer over 2-3 minutes. Dose may be increased by 10 mg from previous dose (up to ordered maximum) for a single dose. Max dose 150 mg for 8 hours or 300 mg in 24 hour s. Monitor blood pressure every 15 minutes x 4 and observe for hypotension and bradycardia after each dose. melatonin tablet 3 mg 3 mg, Oral, Bedtime prn, Starting on Sun01/24/21 at 0002, Until Discontinued, other (Specify), insomnia, Use FIRST for insomnia. If inadequate response in 60 minutes, may proceed to next choice option or, if no other options, contact provider. metoclopramide (REGLAN) inj soln 5 mg 5 mg, IV, Every eight hours prn, Startin g on Sun01/23/21 at 2221, Until Discontinued, nausea, vomiting, 1 mL, Use SECOND. If ineffective and ondansetron used, call physician for alternative If preferenc e is to further dilute for IV administra tion: First draw up patient-specific dose, then dilute to 10 mL with 0.9% sodium chloride. nitroglycerin (NITROSTAT) sublingual tablet 0.4 mg 0.4 mg, Sublingual, Every five minutes p rn, Starting on Sun01/25/21 at 0953, Until Discontinued, chest pain, At onset of chest pain, dissolve one tablet under tongue. May repeat every 5 minutes for 3 doses. Do not crush or chew. ondansetron (ZOFRAN) injection solution 4 mg 4 mg, IV, Every four hours prn, Starting on Sun01/23/21 at 2221, Until Discontinued, nausea, vomiting, 2 mL, Use FIRST. If ineffective after 15 minutes use metoclopramide. If preference is to further di lute for IV administration: First draw u p patient-specific dose, then dilute to 10 mL with 0.9% sodium chloride. senna-docusate sodium (SENOKOT-S;PERICOLACE) tablet 2 tablet(Airam rag[place] Group 3) 2 tablet, Oral, Two times a day prn, Sta rting on Sun01/24/21 at 0002, Until Discontinued, constipation, Use FIRST for constipation unless patient cannot take oral medications. Order Group 1: aspirin enteric coated tablet 81 mgJump to med 81 mg, Oral, Daily, First dose on Sun at 0900, Until Discontinued, Post- Procedure (Cath)
Tablet should be swallowed whole and not be divided, crushed or chewed.
And PHARMACIST: Discontinue previous dose of Aspirin the patient was taking prior to procedure () STAT, ONCE, On Sun01/25/21 at 1005, For 1 occurrence, PHARMACIST: Discontinue previous dose of Aspirin the patient was taking prior to procedure, Post- Procedure (Cath) Group 2: acetaminophen (TYLENOL) tablet 650 mgJump to med 650 mg, Oral, Every six hours prn, Start ing on 01/23/21 at 2221, Until Discontinued, fever > (indicate temp), 100.4 degrees F
Adult patients: Total dose of acetaminophen from all acet aminophen containing products should not exceed 4 grams (4000 mg) per day. Pediatric Patients 0 - 3 months: Maximum of 60 mg/kg/24 hours of acetaminophen. Pediatric Patients older than 3 months: &nbsp ;Maximum of 75 mg/kg/24 hours of acetaminophen (Never exceeding 4 grams/day).
Or acetaminophen (TYLENOL) suppository 650 mgJump to med 650 mg, Rectal, Every six hours prn, Sta rting on 01/23/21 at 2221, Until Discontinued, fever > (indicate temp), 100.4 degrees F
Use rectal suppository if patient not able to take oral acetaminophen. Adult patien ts: Total dose of acetaminophen from all acetaminophen containing products should not exceed 4 grams (4,000 mg) per day. Pediatric Patients 0 - 3 months: Maximum of 60 mg/kg/24 hours of acetaminophen. Pediatric Patients older than 3 months: Maximum of 75 mg/kg/24 hours of acetaminophen (Never exceeding 4 grams/24 hours).
Group 3: senna-docusate sodium (SENOKOT-S;PERICOLACE) tablet 2 tabletJump to med 2 tablet, Oral, Two times a day prn, Sta rting on Sun01/24/21 at 0002, Until Discontinued, constipation
Use FIRST for constipation unless patient cannot take oral medications.
And bisacodyl (DULCOLAX) suppository 10 mgJump to med 10 mg, Rectal, One time a day prn, Start ing on Sun01/24/21 at 0002, Until Discontinued, constipation
Use SECOND for constipation. If patient cannot take oral medications, use first for constipation.
And docusate sodium (THEREVAC-SB MINI;ENEMEEZ MINI) 283 MG enema 1 enemaJump to med 1 enema, Rectal, One time a day prn, Sta rting on Sun01/24/21 at 0002, Until Discontinued, constipation
Use THIRD for constipation - if no BM 8 hours after dulcolax suppository. If patient canno t take oral medications, use second for constipation.
Group 4: glucose chewable tablet 16 gJump to med 16 g (4 tablet), Oral, PRN per parameter , Starting on Sun01/24/21 at 0001, Until Discontinued, low blood glucose
Chew before swallowing. Give 15 gram of carbohydrate if blood glucose i s less than 70 mg/dL, patient is respons kraig and able to take food or oral meds. Recheck blood glucose in 15 minutes. Repeat 15 gram carbohydrate if recheck is less than 70 mg/dL and call MD. &a mp;nbsp;If recheck is greater than 70 mg /dL and able to take food or oral meds, give 15 gram carbohydrate if meal or snack due in more than an hour. Serve meal or snack if due in less than 1 hour.&n bsp; See hypoglycemia treatment on cardex. Sources of 15 grams carbohydrate: a. 4 oz of fruit juice (Do NOT give orange juice to dialysis patients due to risk of hy perkalemia) or b. 4 oz of soda pop (NOT diet) or c. 1 tablespoon of honey
Or carbohydrate 15 gJump to med 15 g, Oral, PRN per parameter, Starting on Sun01/24/21 at 0001, Until Discontinued, low blood glucose
Give 15 grams of carbohydrate if blood glucose is less than 70 mg/dL, patient is responsive and able to take food or oral meds. &nb sp; Recheck blood glucose in 15 minutes. Repeat 1 time and call MD. If recheck is greater than 70 mg/dL and able to take food or o ral meds, give 15 gram carbohydrate if m eal or snack due in more than an hour. Serve meal or snack if due in less than 1 hour. See hypoglycemia treatment on cardex. &nbsp ;Sources of 15 grams carbohydrate: a. 4 oz of fruit juice (Do NOT give orange juice to dialysis patients due to risk of hyperkalemia) or b. 4 oz of soda pop (NOT diet) or c. 1 tablespoon of honey
documented in this encounter
== END 2021-01-23 18:40 ==
LOC: JD.ED 13:46
DX: I46.9 Cardiac arrest, cause unspecified (principal); A41.9 Sepsis, unspecified organism; N39.0 Urinary tract infection, site not specified; I63.9 Cerebral infarction, unspecified; H53.2 Diplopia; I10 Essential (primary) hypertension; I25.2 Old myocardial infarction; E11.9 Type 2 diabetes mellitus without complications; Z79.84 Long term (current) use of oral hypoglycemic drugs; Z79.899 Other long term (current) drug therapy; Z20.822 Contact with and (suspected) exposure to COVID-19
CPT/HCPCS: 36415; 70450; 71045; 80053; 81001; 82947; 83605; 84484; 85025; 85610; 85730; 87040; 93005; 96365; 99285; J0696; J7030; U0002; 93010

== ENCOUNTER 2021-07-22 16:18 | Emergency (ER) | payer MEDICARE, OTHER ==
[2021-07-22] MEDS ORDERED: Sodium Chloride 0.9% 10 ML Syringe FLUSH PRN (16:50)
[2021-07-22 17:36] LABS: CORONAVIRUS COVID-19 NAA NEGATIVE (NEGATIVE)
[2021-07-22] MEDS ORDERED: Sodium Chloride 0.9% 500 ML IV ONE (18:51)
[2021-07-22 22:17] VITALS: PULSE 132
[2021-07-22 22:25] VITALS: BP 92/60
== END 2021-07-22 20:25 ==
LOC: JD.ED 16:18
DX: I49.9 Cardiac arrhythmia, unspecified (principal); E78.00 Pure hypercholesterolemia, unspecified; I10 Essential (primary) hypertension; I25.2 Old myocardial infarction; E11.9 Type 2 diabetes mellitus without complications; Z79.01 Long term (current) use of anticoagulants; Z79.899 Other long term (current) drug therapy; Z79.02 Long term (current) use of antithrombotics/antiplatelets; Z20.822 Contact with and (suspected) exposure to COVID-19
CPT/HCPCS: 0240U; 36415; 70450; 71045; 80053; 83605; 83735; 83880; 84443; 84484; 85025; 85379; 85610; 85730; 86140; 87040; 87077; 87186; 99285; J7030; 93010